=== PATIENT | female | born 1980 | race Caucasian/White ===

== ENCOUNTER → 2017-11-20 | Outpatient (CLI) | payer OTHER ==
[2017-11-20 15:58] LABS: BASOPHILS ABSOLUTE AUTO 0.13 K/mm3 (0.00-0.23); BASOPHILS PERCENT AUTO 2 % (0-2); EOSINOPHILS ABSOLUTE AUTO 0.48 K/mm3 (0.00-0.68); EOSINOPHILS PERCENT AUTO 9 % (0-6); Hematocrit 37.2 % (33.0-51.0); IMMATURE GRAN ABSOLUTE AUTO 0.01 K/mm3 (0.00-0.10); IMMATURE GRAN PERCENT AUTO 0 % (0-1); LYMPHOCYTES ABSOLUTE AUTO 1.69 K/mm3 (0.84-5.20); LYMPHOCYTES PERCENT AUTO 31 % (21-46); MONOCYTES ABSOLUTE AUTO 0.34 K/mm3 (0.16-1.47); MONOCYTES PERCENT AUTO 6 % (4-13); Mean Corpuscular HGB 29.4 pg (26.0-34.0); Mean Corpuscular HGB Conc 32.3 g/dL (31.5-36.5); Mean Corpuscular Volume 91 fL (80-100); NEUTROPHILS ABSOLUTE AUTO 2.82 K/mm3 (1.96-9.15); NEUTROPHILS PERCENT AUTO 52 % (41-73); Platelet Count 412 K/mm3 (150-400); RDW Coefficient Variation 15.6 % (11.7-14.2); Red Blood Cell Count 4.08 M/mm3 (3.80-5.20); White Blood Cell Count 5.47 K/mm3 (4.00-11.30)
[2017-11-20 16:05] LABS: Anion Gap 8 mmol/L (6-16); Blood Urea Nitrogen 6 mg/dL (8-24); Bun/Creatinine Ratio 8.5 (12.0-20.0); CO2, Blood 26 mmol/L (21-32); Calcium, Blood 8.4 mg/dL (8.5-10.1); Chloride, Blood 106 mmol/L (98-108); Creatinine, Blood 0.71 mg/dL (0.40-1.00); Glomerular Filtration Rate >60 (60-); Glucose, Blood 90 mg/dL (70-99); Potassium, Blood 4.2 mmol/L (3.5-5.5); Sodium, Blood 140 mmol/L (136-145)
== END ==
LOC: LAB SHORT 15:54 → LAB EV 15:54
PROVIDERS: Family Medicine
DX: R55 Syncope and collapse (principal)
CPT/HCPCS: 80048; 85025

== ENCOUNTER 2018-02-10 13:37 | Emergency (ER) | payer OTHER ==
[~2018-02-10] VITALS: Ht 167.6 cm; Wt 81.7 kg
[2018-02-10 14:28] LABS: Source, Urine Clean Catch
[2018-02-10 14:33] LABS: Appearance, Urine Clear (Clear); Bilirubin, Urine Neg (Neg); Blood, Urine 4+ (Neg); Color, Urine Yellow (P-Yellow); Glucose Qualitative, Urine Neg (Neg); Ketones, Urine Neg (Neg); Leukocyte Esterase, Urine Neg (Neg); Nitrite, Urine Neg (Neg); Protein, Urine 1+ (Neg); Specific Gravity, Urine 1.005 (1.003-1.022); Urobilinogen, Urine NORM (Normal)
[2018-02-10 14:58] LABS: Bacteria Rare /hpf; Red Blood Cells, Urine Not Seen /hpf (0-2); Squamous Epithelial Cells Few /hpf (Few); White Blood Cells, Urine Not Seen /hpf (0-5)
[2018-02-10 15:03] LABS: BASOPHILS ABSOLUTE AUTO 0.07 K/mm3 (0.00-0.23); BASOPHILS PERCENT AUTO 1 % (0-2); EOSINOPHILS PERCENT AUTO 3 % (0-6); Hematocrit 40.9 % (33.0-51.0); Hemoglobin 13.4 g/dL (11.5-16.0); IMMATURE GRAN ABSOLUTE AUTO 0.01 K/mm3 (0.00-0.10); IMMATURE GRAN PERCENT AUTO 0 % (0-1); LYMPHOCYTES ABSOLUTE AUTO 1.69 K/mm3 (0.84-5.20); LYMPHOCYTES PERCENT AUTO 28 % (21-46); MONOCYTES ABSOLUTE AUTO 0.31 K/mm3 (0.16-1.47); MONOCYTES PERCENT AUTO 5 % (4-13); Mean Corpuscular HGB Conc 32.8 g/dL (31.5-36.5); Mean Corpuscular Volume 95 fL (80-100); Mean Platelet Volume 8.8 fL (9.1-12.4); NEUTROPHILS ABSOLUTE AUTO 3.82 K/mm3 (1.96-9.15); NEUTROPHILS PERCENT AUTO 63 % (41-73); Platelet Count 404 K/mm3 (150-400); RDW Coefficient Variation 15.1 % (11.7-14.2); RDW Standard Deviation 53.5 fL (35.1-46.3); Red Blood Cell Count 4.32 M/mm3 (3.80-5.20)
== END 2018-02-10 15:37 | disposition home or self-care (01) ==
LOC: ER 13:37
PROVIDERS: Physician Assistant
DX: N92.0 Excessive and frequent menstruation with regular cycle (principal); F17.200 Nicotine dependence, unspecified, uncomplicated
CPT/HCPCS: 36415; 81001; 81025; 85025; 99283

== ENCOUNTER 2018-02-12 16:57 | Emergency (ER) | payer OTHER ==
[~2018-02-12] VITALS: Ht 167.6 cm; Wt 79.4 kg
[2018-02-12 17:48] LABS: BASOPHILS ABSOLUTE AUTO 0.09 K/mm3 (0.00-0.23); BASOPHILS PERCENT AUTO 2 % (0-2); EOSINOPHILS ABSOLUTE AUTO 0.11 K/mm3 (0.00-0.68); EOSINOPHILS PERCENT AUTO 2 % (0-6); Hematocrit 40.8 % (33.0-51.0); Hemoglobin 13.3 g/dL (11.5-16.0); IMMATURE GRAN ABSOLUTE AUTO 0.01 K/mm3 (0.00-0.10); IMMATURE GRAN PERCENT AUTO 0 % (0-1); LYMPHOCYTES ABSOLUTE AUTO 1.14 K/mm3 (0.84-5.20); LYMPHOCYTES PERCENT AUTO 21 % (21-46); MONOCYTES ABSOLUTE AUTO 0.42 K/mm3 (0.16-1.47); MONOCYTES PERCENT AUTO 8 % (4-13); Mean Corpuscular HGB 30.8 pg (26.0-34.0); Mean Corpuscular HGB Conc 32.6 g/dL (31.5-36.5); Mean Corpuscular Volume 94 fL (80-100); Mean Platelet Volume 8.8 fL (9.1-12.4); NEUTROPHILS ABSOLUTE AUTO 3.63 K/mm3 (1.96-9.15); NEUTROPHILS PERCENT AUTO 67 % (41-73); Platelet Count 371 K/mm3 (150-400); RDW Coefficient Variation 15.2 % (11.7-14.2); RDW Standard Deviation 53.4 fL (35.1-46.3); Red Blood Cell Count 4.32 M/mm3 (3.80-5.20)
[2018-02-12 17:54] LABS: Alanine Aminotransfer (ALT/SGP 41 U/L (12-78); Alk Phos 60 U/L (50-136); Anion Gap 10 mmol/L (6-16); Aspartate Aminotrans (AST/SGOT 50 U/L (12-37); Beta HCG, Quantitative, Serum <1 mIU/mL (0-3); Bilirubin, Total 0.6 mg/dL (0.1-1.0); Blood Urea Nitrogen 5 mg/dL (8-24); Bun/Creatinine Ratio 8.5 (12.0-20.0); CO2, Blood 23 mmol/L (21-32); Calcium, Blood 8.8 mg/dL (8.5-10.1); Chloride, Blood 102 mmol/L (98-108); Creatinine, Blood 0.59 mg/dL (0.40-1.00); Globulin, Blood 4.2 g/dL (2.2-4.0); Glomerular Filtration Rate >60 (60-); Glucose, Blood 86 mg/dL (70-99); Potassium, Blood 3.5 mmol/L (3.5-5.5); Sodium, Blood 135 mmol/L (136-145); Total Protein, Blood 8.2 g/dL (6.4-8.2)
[2018-02-12] MEDS ORDERED: MEDR10 PO (19:06)
[2018-02-12] MEDS ORDERED: HYDR1TAB94 PO (19:06)
[2018-02-12] MEDS ORDERED: IBUP400 PO (19:06)
== END 2018-02-12 19:20 | disposition home or self-care (01) ==
LOC: ER 16:57
PROVIDERS: Emergency Medicine
DX: N93.8 Other specified abnormal uterine and vaginal bleeding (principal); F17.200 Nicotine dependence, unspecified, uncomplicated
CPT/HCPCS: 36415; 76830; 76856; 80053; 84702; 85025; 96374; 96375; 99284-25; J2405; J3010

== ENCOUNTER 2018-06-21 17:12 | Observation (INO) | payer OTHER ==
[~2018-06-21] VITALS: Ht 167.6 cm; Wt 81.7 kg
[~2018-06-21 17:12] MED LIST: HYDR1TAB94 PO; IBUP400 PO; MEDR10 PO
[2018-06-21 18:24] LABS: BASOPHILS ABSOLUTE AUTO 0.12 K/mm3 (0.00-0.23); BASOPHILS PERCENT AUTO 1 % (0-2); EOSINOPHILS ABSOLUTE AUTO 0.09 K/mm3 (0.00-0.68); EOSINOPHILS PERCENT AUTO 1 % (0-6); Hematocrit 41.3 % (33.0-51.0); Hemoglobin 13.6 g/dL (11.5-16.0); IMMATURE GRAN ABSOLUTE AUTO 0.03 K/mm3 (0.00-0.10); IMMATURE GRAN PERCENT AUTO 0 % (0-1); LYMPHOCYTES ABSOLUTE AUTO 2.34 K/mm3 (0.84-5.20); LYMPHOCYTES PERCENT AUTO 27 % (21-46); MONOCYTES ABSOLUTE AUTO 0.49 K/mm3 (0.16-1.47); MONOCYTES PERCENT AUTO 6 % (4-13); Mean Corpuscular HGB 31.5 pg (26.0-34.0); Mean Corpuscular HGB Conc 32.9 g/dL (31.5-36.5); Mean Corpuscular Volume 96 fL (80-100); Mean Platelet Volume 9.4 fL (9.1-12.4); NEUTROPHILS ABSOLUTE AUTO 5.48 K/mm3 (1.96-9.15); NEUTROPHILS PERCENT AUTO 64 % (41-73); Platelet Count 375 K/mm3 (150-400); RDW Coefficient Variation 17.6 % (11.7-14.2); Red Blood Cell Count 4.32 M/mm3 (3.80-5.20); White Blood Cell Count 8.55 K/mm3 (4.00-11.30)
[2018-06-21 18:39] LABS: Alanine Aminotransfer (ALT/SGP 21 U/L (12-78); Albumin, Blood 3.6 g/dL (3.4-5.0); Albumin/Globulin Ratio 0.8 (0.8-1.8); Alk Phos 68 U/L (50-136); Anion Gap 9 mmol/L (6-16); Aspartate Aminotrans (AST/SGOT 26 U/L (12-37); Bilirubin, Total 0.2 mg/dL (0.1-1.0); Blood Urea Nitrogen 5 mg/dL (8-24); Bun/Creatinine Ratio 8.1 (12.0-20.0); CO2, Blood 24 mmol/L (21-32); Calcium, Blood 8.2 mg/dL (8.5-10.1); Chloride, Blood 108 mmol/L (98-108); Creatinine, Blood 0.61 mg/dL (0.40-1.00); Globulin, Blood 4.6 g/dL (2.2-4.0); Glomerular Filtration Rate >60 (60-); Glucose, Blood 95 mg/dL (70-99); Potassium, Blood 4.4 mmol/L (3.5-5.5); Salicylate 2.1 mg/dL (2.8-20.0); Sodium, Blood 141 mmol/L (136-145); Total Protein, Blood 8.2 g/dL (6.4-8.2)
[2018-06-21 18:45] LABS: Acetaminophen, Random <2.0 ug/mL (10.0-30.0); Ethanol (Alcohol), Blood, Med 368 mg/dL
[2018-06-21 21:54] LABS: Salicylate 2.1 mg/dL (2.8-20.0)
[2018-06-21 21:59] LABS: Acetaminophen, Random <2.0 ug/mL (10.0-30.0)
[2018-06-22 00:49] LABS: Acetaminophen, Random <2.0 ug/mL (10.0-30.0)
== END 2018-06-22 06:50 | disposition home or self-care (01) ==
LOC: ER 17:12 → EOR 17:13
PROVIDERS: ADMIT Emergency Medicine
DX: T42.4X2A Poisoning by benzodiazepines, intentional self-harm, initial encounter (principal); F10.129 Alcohol abuse with intoxication, unspecified; F43.9 Reaction to severe stress, unspecified; F32.9 Major depressive disorder, single episode, unspecified; F17.210 Nicotine dependence, cigarettes, uncomplicated; Z79.899 Other long term (current) drug therapy; Y90.8 Blood alcohol level of 240 mg/100 ml or more
CPT/HCPCS: 80053; 84443; 85025; 96360; 96361; 99285-25; G0378; G0480; J7030; Q3014

== ENCOUNTER 2019-03-06 19:16 | Emergency (ER) | payer MEDICAID ==
[~2019-03-06] VITALS: Ht 167.6 cm; Wt 81.7 kg
[2019-03-06 20:10] LABS: BASOPHILS ABSOLUTE AUTO 0.09 K/mm3 (0.00-0.23); BASOPHILS PERCENT AUTO 1 % (0-2); EOSINOPHILS ABSOLUTE AUTO 0.01 K/mm3 (0.00-0.68); EOSINOPHILS PERCENT AUTO 0 % (0-6); Hematocrit 36.2 % (33.0-51.0); Hemoglobin 11.8 g/dL (11.5-16.0); IMMATURE GRAN ABSOLUTE AUTO 0.03 K/mm3 (0.00-0.10); IMMATURE GRAN PERCENT AUTO 0 % (0-1); LYMPHOCYTES ABSOLUTE AUTO 0.68 K/mm3 (0.84-5.20); LYMPHOCYTES PERCENT AUTO 8 % (21-46); MONOCYTES ABSOLUTE AUTO 0.43 K/mm3 (0.16-1.47); MONOCYTES PERCENT AUTO 5 % (4-13); Mean Corpuscular HGB 31.4 pg (26.0-34.0); Mean Corpuscular HGB Conc 32.6 g/dL (31.5-36.5); Mean Corpuscular Volume 96 fL (80-100); Mean Platelet Volume 9.6 fL (9.1-12.4); NEUTROPHILS ABSOLUTE AUTO 6.88 K/mm3 (1.96-9.15); NEUTROPHILS PERCENT AUTO 85 % (41-73); Platelet Count 289 K/mm3 (150-400); RDW Coefficient Variation 15.3 % (11.7-14.2); RDW Standard Deviation 54.2 fL (35.1-46.3); Red Blood Cell Count 3.76 M/mm3 (3.80-5.20); White Blood Cell Count 8.12 K/mm3 (4.00-11.30)
[2019-03-06 20:31] LABS: Alanine Aminotransfer (ALT/SGP 53 U/L (12-78); Albumin, Blood 3.9 g/dL (3.4-5.0); Albumin/Globulin Ratio 1.1 (0.8-1.8); Alk Phos 62 U/L (50-136); Anion Gap 14 mmol/L (6-16); Aspartate Aminotrans (AST/SGOT 56 U/L (12-37); Bilirubin, Total 0.7 mg/dL (0.1-1.0); Blood Urea Nitrogen 5 mg/dL (8-24); Bun/Creatinine Ratio 8.3 (12.0-20.0); CO2, Blood 19 mmol/L (21-32); Calcium, Blood 8.4 mg/dL (8.5-10.1); Chloride, Blood 103 mmol/L (98-108); Globulin, Blood 3.7 g/dL (2.2-4.0); Glomerular Filtration Rate >60 (60-); Glucose, Blood 80 mg/dL (70-99); Potassium, Blood 3.1 mmol/L (3.5-5.5); Sodium, Blood 136 mmol/L (136-145); Total Protein, Blood 7.6 g/dL (6.4-8.2); Troponin I <0.015 ng/mL (0.000-0.040)
[2019-03-06] MEDS ORDERED: Ativan0.5 MG PO (20:37)
== END 2019-03-06 20:58 | disposition home or self-care (01) ==
LOC: ER 19:16
PROVIDERS: Physician Assistant
DX: F41.9 Anxiety disorder, unspecified (principal); E87.6 Hypokalemia; F17.210 Nicotine dependence, cigarettes, uncomplicated; Z88.8 Allergy status to other drugs, medicaments and biological substances
CPT/HCPCS: 80053; 81025; 84484; 85025; 93005; 93010; 99284-25

== ENCOUNTER → 2019-04-16 | Outpatient (CLI) | payer SELFPAY ==
[~2019-04-16] MED LIST changes: +Ativan0.5 MG PO
== END | disposition home or self-care (01) ==
LOC: LAB EV 17:10 → LAB SHORT 17:10
DX: L02.11 Cutaneous abscess of neck (principal)
CPT/HCPCS: 87070; 87075; 87076; 87205

== ENCOUNTER → 2019-07-24 | Outpatient (CLI) | payer OTHER ==
[2019-07-24 16:05] LABS: BASOPHILS ABSOLUTE AUTO 0.11 K/mm3 (0.00-0.23); BASOPHILS PERCENT AUTO 2 % (0-2); EOSINOPHILS ABSOLUTE AUTO 0.05 K/mm3 (0.00-0.68); EOSINOPHILS PERCENT AUTO 1 % (0-6); Hematocrit 37.1 % (33.0-51.0); Hemoglobin 12.8 g/dL (11.5-16.0); IMMATURE GRAN ABSOLUTE AUTO 0.01 K/mm3 (0.00-0.10); IMMATURE GRAN PERCENT AUTO 0 % (0-1); LYMPHOCYTES PERCENT AUTO 24 % (21-46); MONOCYTES ABSOLUTE AUTO 0.47 K/mm3 (0.16-1.47); MONOCYTES PERCENT AUTO 8 % (4-13); Mean Corpuscular HGB 32.1 pg (26.0-34.0); Mean Corpuscular HGB Conc 34.5 g/dL (31.5-36.5); Mean Corpuscular Volume 93 fL (80-100); Mean Platelet Volume 9.7 fL (9.1-12.4); NEUTROPHILS ABSOLUTE AUTO 4.01 K/mm3 (1.96-9.15); NEUTROPHILS PERCENT AUTO 65 % (41-73); Platelet Count 488 K/mm3 (150-400); RDW Coefficient Variation 16.2 % (11.7-14.2); RDW Standard Deviation 55.5 fL (35.1-46.3); Red Blood Cell Count 3.99 M/mm3 (3.80-5.20); White Blood Cell Count 6.15 K/mm3 (4.00-11.30)
[2019-07-24 16:51] LABS: Alanine Aminotransfer (ALT/SGP 112 U/L (12-78); Albumin, Blood 3.5 g/dL (3.4-5.0); Albumin/Globulin Ratio 0.8 (0.8-1.8); Alk Phos 69 U/L (40-126); Anion Gap 11 mmol/L (6-16); Aspartate Aminotrans (AST/SGOT 139 U/L (12-37); Bilirubin, Total 0.6 mg/dL (0.1-1.0); Blood Urea Nitrogen 2 mg/dL (8-24); CO2, Blood 24 mmol/L (21-32); Calcium, Blood 8.5 mg/dL (8.5-10.1); Chloride, Blood 103 mmol/L (98-108); Globulin, Blood 4.4 g/dL (2.2-4.0); Glomerular Filtration Rate >60 (60-); Glucose, Blood 80 mg/dL (70-99); Potassium, Blood 4.6 mmol/L (3.5-5.5); Sodium, Blood 138 mmol/L (136-145); Thyroid Stimulating Hormone 1.521 uIU/mL (0.360-4.800); Total Protein, Blood 7.9 g/dL (6.4-8.2)
[2019-07-24 16:52] LABS: Troponin I <0.017 ng/mL (0.000-0.040)
[2019-07-26 03:07] LABS: HBSAG SCREEN Negative (Negative); HEP A AB, IGM Negative (Negative); HEP B CORE AB, IGM Negative (Negative); HEP C VIRUS AB <0.1 (0.0-0.9)
== END | disposition home or self-care (01) ==
LOC: LAB SHORT 15:58 → LAB EV 15:58
PROVIDERS: Physician Assistant
DX: R07.89 Other chest pain (principal); R53.83 Other fatigue; R74.8 Abnormal levels of other serum enzymes
CPT/HCPCS: 80053; 80074; 84443; 84484; 85025

== ENCOUNTER 2019-11-09 13:26 | Emergency (ER) | payer OTHER ==
[~2019-11-09] VITALS: Ht 170.2 cm; Wt 78.5 kg
[2019-11-09 13:45] LABS: BASOPHILS ABSOLUTE AUTO 0.03 K/mm3 (0.00-0.23); BASOPHILS PERCENT AUTO 0 % (0-2); EOSINOPHILS ABSOLUTE AUTO 0.03 K/mm3 (0.00-0.68); EOSINOPHILS PERCENT AUTO 0 % (0-6); Hematocrit 42.8 % (33.0-51.0); Hemoglobin 14.3 g/dL (11.5-16.0); IMMATURE GRAN PERCENT AUTO 1 % (0-1); LYMPHOCYTES ABSOLUTE AUTO 0.35 K/mm3 (0.84-5.20); LYMPHOCYTES PERCENT AUTO 2 % (21-46); MONOCYTES ABSOLUTE AUTO 1.29 K/mm3 (0.16-1.47); MONOCYTES PERCENT AUTO 9 % (4-13); Mean Corpuscular HGB 32.5 pg (26.0-34.0); Mean Corpuscular HGB Conc 33.4 g/dL (31.5-36.5); Mean Corpuscular Volume 97 fL (80-100); Mean Platelet Volume 10.9 fL (9.1-12.4); NEUTROPHILS ABSOLUTE AUTO 12.96 K/mm3 (1.96-9.15); NEUTROPHILS PERCENT AUTO 88 % (41-73); NRBC ABSOLUTE 0.02 K/mm3 (0.00-0.02); NRBC Auto 0.1 /100 WBC (0.0-0.2); Platelet Count 167 K/mm3 (150-400); RDW Coefficient Variation 18.6 % (11.7-14.2); RDW Standard Deviation 66.9 fL (35.1-46.3); White Blood Cell Count 14.76 K/mm3 (4.00-11.30)
[2019-11-09 14:03] LABS: Alanine Aminotransfer (ALT/SGP 64 U/L (12-78); Albumin, Blood 3.5 g/dL (3.4-5.0); Albumin/Globulin Ratio 0.8 (0.8-1.8); Alk Phos 70 U/L (50-136); Anion Gap 27 mmol/L (6-16); Aspartate Aminotrans (AST/SGOT 115 U/L (12-37); Bilirubin, Total 1.3 mg/dL (0.1-1.0); Blood Urea Nitrogen 12 mg/dL (8-24); Bun/Creatinine Ratio 13.2 (12.0-20.0); CO2, Blood 11 mmol/L (21-32); Calcium, Blood 8.7 mg/dL (8.5-10.1); Chloride, Blood 87 mmol/L (98-108); Creatinine, Blood 0.91 mg/dL (0.40-1.00); Globulin, Blood 4.4 g/dL (2.2-4.0); Glomerular Filtration Rate >60 (60-); Glucose, Blood 131 mg/dL (70-99); Potassium, Blood 3.6 mmol/L (3.5-5.5); Sodium, Blood 125 mmol/L (136-145); Total Protein, Blood 7.9 g/dL (6.4-8.2)
[2019-11-09] MEDS ORDERED: PROM25 PO (15:39)
== END 2019-11-09 16:20 | disposition home or self-care (01) ==
LOC: ER 13:26
PROVIDERS: Emergency Medicine
DX: K85.90 Acute pancreatitis without necrosis or infection, unspecified (principal); E86.0 Dehydration; F10.10 Alcohol abuse, uncomplicated; F41.0 Panic disorder [episodic paroxysmal anxiety]; F17.200 Nicotine dependence, unspecified, uncomplicated
CPT/HCPCS: 76705; 80053; 83690; 85025; 93005; 93010; 96361; 96374; 96375; 99284-25; J2270; J2550; J7030

== ENCOUNTER 2019-11-12 15:03 | Inpatient (IN) | payer OTHER ==
[~2019-11-12] VITALS: Ht 170.2 cm; Wt 75.4 kg
[~2019-11-12 15:03] MED LIST changes: +PROM25 PO
[2019-11-12 16:12] LABS: BASOPHILS ABSOLUTE AUTO 0.03 K/mm3 (0.00-0.23); BASOPHILS PERCENT AUTO 0 % (0-2); EOSINOPHILS ABSOLUTE AUTO 0.07 K/mm3 (0.00-0.68); EOSINOPHILS PERCENT AUTO 1 % (0-6); Hematocrit 32.8 % (33.0-51.0); Hemoglobin 11.1 g/dL (11.5-16.0); IMMATURE GRAN ABSOLUTE AUTO 0.08 K/mm3 (0.00-0.10); IMMATURE GRAN PERCENT AUTO 1 % (0-1); LYMPHOCYTES ABSOLUTE AUTO 0.76 K/mm3 (0.84-5.20); LYMPHOCYTES PERCENT AUTO 11 % (21-46); MONOCYTES ABSOLUTE AUTO 0.41 K/mm3 (0.16-1.47); MONOCYTES PERCENT AUTO 6 % (4-13); Mean Corpuscular HGB 32.2 pg (26.0-34.0); Mean Corpuscular HGB Conc 33.8 g/dL (31.5-36.5); Mean Corpuscular Volume 95 fL (80-100); Mean Platelet Volume 10.6 fL (9.1-12.4); NEUTROPHILS PERCENT AUTO 81 % (41-73); NRBC ABSOLUTE 0.02 K/mm3 (0.00-0.02); NRBC Auto 0.3 /100 WBC (0.0-0.2); Platelet Count 159 K/mm3 (150-400); RDW Coefficient Variation 18.6 % (11.7-14.2); RDW Standard Deviation 65.1 fL (35.1-46.3); Red Blood Cell Count 3.45 M/mm3 (3.80-5.20); White Blood Cell Count 7.05 K/mm3 (4.00-11.30)
[2019-11-12 16:31] LABS: Alanine Aminotransfer (ALT/SGP 48 U/L (12-78); Albumin, Blood 3.2 g/dL (3.4-5.0); Albumin/Globulin Ratio 0.8 (0.8-1.8); Alk Phos 72 U/L (50-136); Anion Gap 14 mmol/L (6-16); Aspartate Aminotrans (AST/SGOT 71 U/L (12-37); Bilirubin, Total 1.1 mg/dL (0.1-1.0); Blood Urea Nitrogen 15 mg/dL (8-24); Bun/Creatinine Ratio 20.3 (12.0-20.0); CO2, Blood 21 mmol/L (21-32); Calcium, Blood 9.2 mg/dL (8.5-10.1); Chloride, Blood 93 mmol/L (98-108); Creatinine, Blood 0.74 mg/dL (0.40-1.00); Globulin, Blood 4.1 g/dL (2.2-4.0); Glomerular Filtration Rate >60 (60-); Glucose, Blood 163 mg/dL (70-99); Potassium, Blood 2.9 mmol/L (3.5-5.5); Sodium, Blood 128 mmol/L (136-145); Total Protein, Blood 7.3 g/dL (6.4-8.2)
[2019-11-12 18:25] LABS: Source, Urine Clean Catch
[2019-11-12 18:31] LABS: Bilirubin, Urine Neg (Neg); Blood, Urine 5+ (Neg); Glucose Qualitative, Urine 1+ (Neg); Ketones, Urine 4+ (Neg); Leukocyte Esterase, Urine 1+ (Neg); Nitrite, Urine Neg (Neg); Protein, Urine 2+ (Neg); Specific Gravity, Urine 1.005 (1.003-1.022); Urobilinogen, Urine 1+ (Normal); pH, Urine 6.5 (5.0-8.0)
[2019-11-12 18:46] LABS: Appearance, Urine Clear (Clear); Color, Urine Yellow (P-Yellow)
[2019-11-12 18:47] LABS: Bacteria Mod /hpf; Squamous Epithelial Cells Few /hpf (Few)
[2019-11-12 21:26] LABS: Magnesium, Blood 2.3 mg/dL (1.6-2.4)
[2019-11-13 05:55] LABS: Magnesium, Blood 2.4 mg/dL (1.6-2.4)
[2019-11-13 05:57] LABS: Alanine Aminotransfer (ALT/SGP 37 U/L (12-78); Albumin, Blood 2.6 g/dL (3.4-5.0); Albumin/Globulin Ratio 0.7 (0.8-1.8); Alk Phos 58 U/L (50-136); Anion Gap 8 mmol/L (6-16); Aspartate Aminotrans (AST/SGOT 45 U/L (12-37); Bilirubin, Total 0.7 mg/dL (0.1-1.0); Blood Urea Nitrogen 15 mg/dL (8-24); Bun/Creatinine Ratio 25.2 (12.0-20.0); CO2, Blood 23 mmol/L (21-32); Calcium, Blood 8.3 mg/dL (8.5-10.1); Chloride, Blood 102 mmol/L (98-108); Globulin, Blood 3.7 g/dL (2.2-4.0); Glomerular Filtration Rate >60 (60-); Glucose, Blood 132 mg/dL (70-99); Potassium, Blood 3.3 mmol/L (3.5-5.5); Sodium, Blood 133 mmol/L (136-145); Total Protein, Blood 6.3 g/dL (6.4-8.2)
--- NOTE | 2019-11-13 06:31 | NUR ---
SHIFT SUMMARY PT WAS A NEW ADMIT DURING THE NIGHT, ARRIVING AT 2250. SHE WAS ADMITTED FOR PANCREATITIS AND ABD PAIN. PT IS A&O X 4, 1PA IN THE ROOM. SHE WAS MEDICATED X2 FOR ABD PAIN WITH IV DILAUDID, AND ONCE FOR NAUSEA WITH PRN ZOFRAN. PT SLEPT OFF AND ON THROUGH THE NIGHT. SHE WAS ALSO MEDICATED FOR ANXIETY WITH PRN XANAX. VITAL SIGNS STABLE. PT IS RECEIVING NS @ 100 ML/HR. NO ACUTE CHANGES IN PT CONDITION NOTED SINCE ADMISSION. WILL CONTINUE TO MONITOR AND TREAT PER EMAR UNTIL HAND OFF TO DAY SHIFT RN.
--- NOTE | 2019-11-13 17:30 | NUR ---
Shift Summary A/Ox4, pleasant and cooperative with care. SBA to bedside commode, able to make needs known. Medicated for abdominal pain x 2 with good results. Denies nausea, vomiting, diarrhea. Tolerating PO clear liquids well and anxious to go home soon. Uneventful day. No acute concerns, will continue to monitor.
[2019-11-14 06:02] LABS: BASOPHILS ABSOLUTE AUTO 0.04 K/mm3 (0.00-0.23); BASOPHILS PERCENT AUTO 1 % (0-2); EOSINOPHILS ABSOLUTE AUTO 0.17 K/mm3 (0.00-0.68); EOSINOPHILS PERCENT AUTO 3 % (0-6); Hematocrit 28.8 % (33.0-51.0); Hemoglobin 9.6 g/dL (11.5-16.0); IMMATURE GRAN PERCENT AUTO 2 % (0-1); LYMPHOCYTES ABSOLUTE AUTO 0.83 K/mm3 (0.84-5.20); LYMPHOCYTES PERCENT AUTO 15 % (21-46); MONOCYTES ABSOLUTE AUTO 0.92 K/mm3 (0.16-1.47); MONOCYTES PERCENT AUTO 16 % (4-13); Mean Corpuscular HGB 32.4 pg (26.0-34.0); Mean Corpuscular HGB Conc 33.3 g/dL (31.5-36.5); Mean Corpuscular Volume 97 fL (80-100); Mean Platelet Volume 10.4 fL (9.1-12.4); NEUTROPHILS ABSOLUTE AUTO 3.54 K/mm3 (1.96-9.15); NEUTROPHILS PERCENT AUTO 63 % (41-73); Platelet Count 150 K/mm3 (150-400); RDW Standard Deviation 67.7 fL (35.1-46.3); Red Blood Cell Count 2.96 M/mm3 (3.80-5.20)
--- NOTE | 2019-11-14 06:24 | NUR ---
SHIFT SUMMARY PT IS A 39 Y/O FEMALE, ADMITTED FOR PANCREATITIS. SHE IS A&O X 4, INDEPENDENT TO [place] [facility] [place] PT COMPLAINED OF AN ACUTE EXACERBATION OF EPIGASTRIC PAIN DURING THE NIGHT, WHICH WAS CONTROLLED WITH PRN IV DILAUDID. PT DID REPORT NAUSEA IMPROVED, THOUGH IT IS PAINFUL FOR HER TO SWALLOW. NO COMPLAINTS OF SOB. VITAL SIGNS STABLE. PT RECEIVING NS @ 100 ML/HR CONTINUOUS. NO OTHER ACUTE CHANGES IN PT CONDITION NOTED. WILL CONTINUE TO MONITOR AND TREAT PER EMAR UNTIL HAND OFF TO DAY SHIFT RN.
[2019-11-14 06:41] LABS: Albumin, Blood 2.3 g/dL (3.4-5.0); Anion Gap 11 mmol/L (6-16); Blood Urea Nitrogen 8 mg/dL (8-24); Bun/Creatinine Ratio 16.1 (12.0-20.0); CO2, Blood 22 mmol/L (21-32); Calcium, Blood 7.6 mg/dL (8.5-10.1); Chloride, Blood 103 mmol/L (98-108); Glomerular Filtration Rate >60 (60-); Glucose, Blood 173 mg/dL (70-99); Phosphorus, Blood 3.3 mg/dL (2.5-4.9); Potassium, Blood 2.9 mmol/L (3.5-5.5); Sodium, Blood 136 mmol/L (136-145)
[2019-11-14 09:37] LABS: Percent Saturation 16.6 % (15.0-50.0)
--- NOTE | 2019-11-14 19:35 | NUR ---
Shift Summary A/Ox4. Medicated for pain per EMAR x 1 with good results. Denies nausea, vomiting, diarrhea. C/O burning pain in chest when eating meals, passed onto night RN RE possibly ordering carafate. NS @ 100. Independent to bedside commode, SBA to bathroom. No other acute concerns.
--- NOTE | 2019-11-15 04:51 | NUR ---
SOCIAL MEDIA DEVELOPER SUMMARY PT A/O X4. INDEPENDENT TO [facility]. MEDICATED FOR PAIN PER EMAR. VSS. NAUSEA WAS TOLERABLE. SLEPT OFF AND ON TONIGHT. NO ACUTE CHANGES.
[2019-11-15 09:00] LABS: Anion Gap 7 mmol/L (6-16); Blood Urea Nitrogen 5 mg/dL (8-24); Bun/Creatinine Ratio 10.8 (12.0-20.0); CO2, Blood 25 mmol/L (21-32); Calcium, Blood 8.2 mg/dL (8.5-10.1); Chloride, Blood 104 mmol/L (98-108); Creatinine, Blood 0.46 mg/dL (0.40-1.00); Glomerular Filtration Rate >60 (60-); Glucose, Blood 137 mg/dL (70-99); Potassium, Blood 3.3 mmol/L (3.5-5.5); Sodium, Blood 136 mmol/L (136-145)
--- NOTE | 2019-11-15 18:10 | NUR ---
PT AOX4 AND COOPERATIVE OF CARE. PT STARTED SHIFT WITH STOMACH PAIN AND SOME NAUSEA AND WAS TREATED PER EMAR. DR CORTES DID A CONSULT FOR DR GARCIA. PT WILL BE ON CLEAR THEN NPO AT MIDNIGHT FOR AN EGD IN THE AM TOMORROW. PT IS WORKING ON HER DINNER AT THIS TIME. INDEPENDENT TO BEDSIDE COMMODE. WILL CONTINUE TO MONITOR.
--- NOTE | 2019-11-16 05:02 | NUR ---
BOAT DETAILER SUMMARY PT A/O X4. INDEPENDENT TO BEDSIDE COMMODE. MEDICATED FOR PAIN PER EMAR. PT STATED SHE DID NOT SLEEP MUCH TONIGHT. PT STATED BEING IN THE HOSPITAL MAKES HER ANXIOUS. NPO SINCE MIDNIGHT. AWAITING EGD TODAY. PT EXPRESSED SHE REALLY WANTS TO GO HOME AFTER PROCEDURE EVEN IF IT MEANT LEAVING AMA. XANAX GIVEN FOR ANXIETY. VSS. NO ACUTE CHANGES.
[2019-11-16 05:48] LABS: Hematocrit 28.3 % (33.0-51.0); Hemoglobin 9.3 g/dL (11.5-16.0); Mean Corpuscular HGB Conc 32.9 g/dL (31.5-36.5); Mean Corpuscular Volume 97 fL (80-100); Platelet Count 245 K/mm3 (150-400); RDW Coefficient Variation 19.6 % (11.7-14.2); RDW Standard Deviation 69.7 fL (35.1-46.3); Red Blood Cell Count 2.91 M/mm3 (3.80-5.20); White Blood Cell Count 4.37 K/mm3 (4.00-11.30)
[2019-11-16 06:07] LABS: Alanine Aminotransfer (ALT/SGP 24 U/L (12-78); Albumin, Blood 2.2 g/dL (3.4-5.0); Albumin/Globulin Ratio 0.7 (0.8-1.8); Alk Phos 49 U/L (50-136); Anion Gap 8 mmol/L (6-16); Aspartate Aminotrans (AST/SGOT 24 U/L (12-37); Bilirubin, Total 0.3 mg/dL (0.1-1.0); Blood Urea Nitrogen 4 mg/dL (8-24); Bun/Creatinine Ratio 9.4 (12.0-20.0); CO2, Blood 24 mmol/L (21-32); Calcium, Blood 7.5 mg/dL (8.5-10.1); Chloride, Blood 106 mmol/L (98-108); Creatinine, Blood 0.43 mg/dL (0.40-1.00); Globulin, Blood 3.1 g/dL (2.2-4.0); Glomerular Filtration Rate >60 (60-); Glucose, Blood 120 mg/dL (70-99); Sodium, Blood 138 mmol/L (136-145); Total Protein, Blood 5.3 g/dL (6.4-8.2)
--- NOTE | 2019-11-16 08:56 | NUR ---
History, Chart, Medications and Allergies reviewed before start of procedure. Lungs clear T/O to Auscultation. Patient confirms NPO status and agrees with scheduled surgery. Pre-Op teaching done. Pt verbalizes understanding.
--- NOTE | 2019-11-16 09:14 | NUR ---
11/16/19 0914 Alicia Lima History, Chart, Medications and Allergies reviewed before start of procedure.3-LEAD EKG REVIEWED WITH PHYSICIAN PRIOR TO START OF PROCEDURE. MONITOR INTACT WITH CONTINUOUS PULSE OXIMETRY AND INTERMITTENT BP. O2 VIA N/C INTACT THROUGHOUT SEDATION/PROCEDURE. PATIENT DETERMINED TO BE ASA APPROPRIATE FOR PROPOFOL SEDATION PRIOR TO START OF PROCEDURE BY DR. GARCIA.
--- NOTE | 2019-11-16 09:33 | NUR ---
PT LEFT ROOM FOR EGD AT 0800. PT WAS AOX4 AND COOPERATIVE OF CARE. PT DID STATE SHE WAS HAVING STOMACH DISCOMFORT PRIOR TO LEAVING ROOM. WILL MONITOR WHEN SHE GET BACK TO ROOM.
[2019-11-16] MEDS ORDERED: SUCR1 PO (16:06)
[2019-11-16] MEDS ORDERED: OMEP20ER PO (16:07)
--- NOTE | 2019-11-16 16:42 | NUR ---
PT DISCHARGED AT 1630. PT COMPLETED EGD WITH DR GARCIA TODAY. DR GARCIA STATED PT COULD DISCHARGE IF SHE WAS ABLE TO EAT MECHANICAL SOFT DIET WITH OUT ABDOMINAL PAIN. DIET WAS ORDERED AND PT DENIED ANY ABDOMINAL PAIN. DR CORTES WAS NOTIFIED OF DR GARCIA'S INSTRUCTIONS AND PT WAS OKAYED TO DISCHARGE TODAY. ALL PAPERWORK WAS SIGNED AND EDUCATIONAL MATERIAL SENT WITH PT. PT DENIED ANY PAIN AT DISCHARGE. PT ESCORTED VIA WHEEL CHAIR BY THIS STUDENT EDUCATION SPECIALIST TO N ENTRANCE.FAMILY TO TRANSPORT. MEDICATION FAXED TO [facility].
== END 2019-11-16 16:48 | disposition home or self-care (01) | DRG 439 ==
LOC: ER 15:03 → MEDS 15:04
PROVIDERS: Internal Medicine; Internal Medicine Gastroenterology; Nurse Practitioner Acute Care; Physician Assistant; ADMIT Internal Medicine
PROC: 0DD68ZX Extraction of Stomach, Via Natural or Artificial Opening Endoscopic, Diagnostic (ICD-10-PCS; 2019-11-16)
PROC: 0DD38ZX Extraction of Lower Esophagus, Via Natural or Artificial Opening Endoscopic, Diagnostic (ICD-10-PCS; principal; 2019-11-16 09:00)
DX: K85.90 Acute pancreatitis without necrosis or infection, unspecified (principal); E87.1 Hypo-osmolality and hyponatremia; E86.0 Dehydration; K21.9 Gastro-esophageal reflux disease without esophagitis; E87.6 Hypokalemia; F41.9 Anxiety disorder, unspecified; K85.20 Alcohol induced acute pancreatitis without necrosis or infection; R13.10 Dysphagia, unspecified; F10.10 Alcohol abuse, uncomplicated; D63.8 Anemia in other chronic diseases classified elsewhere; K70.10 Alcoholic hepatitis without ascites; Z20.828 Contact with and (suspected) exposure to other viral communicable diseases
CPT/HCPCS: 36415; 71260; 74177; 80048; 80053; 80069; 81001; 82607; 82728; 82746; 83036; 83540; 83550; 83690; 83735; 84100; 85025; 85027; 87086; 88305; 88312; 88342; 96365-59; 96366; 96366-59; 96367; 96372-59; 96375; 96375-59; 96376; 99284-25; C9113; G0378; J1170; J1650; J2250; J2405; J2704; J2765; J3411; J3475; J3480; J7030; J7042; J7060; J7120; Q9967; U0002

== ENCOUNTER 2020-03-27 14:31 | Emergency (ER) | payer OTHER ==
[~2020-03-27] VITALS: Ht 167.6 cm; Wt 65.3 kg
[~2020-03-27 14:31] MED LIST changes: +OMEP20ER PO; +SUCR1 PO
[2020-03-27] MEDS ORDERED: HYDHCL25 PO (14:39)
[2020-03-27 15:06] LABS: BASOPHILS ABSOLUTE AUTO 0.07 K/mm3 (0.00-0.23); BASOPHILS PERCENT AUTO 1 % (0-2); EOSINOPHILS PERCENT AUTO 0 % (0-6); Hematocrit 39.9 % (33.0-51.0); Hemoglobin 13.8 g/dL (11.5-16.0); IMMATURE GRAN ABSOLUTE AUTO 0.02 K/mm3 (0.00-0.10); IMMATURE GRAN PERCENT AUTO 0 % (0-1); LYMPHOCYTES ABSOLUTE AUTO 0.96 K/mm3 (0.84-5.20); LYMPHOCYTES PERCENT AUTO 13 % (21-46); MONOCYTES ABSOLUTE AUTO 0.26 K/mm3 (0.16-1.47); MONOCYTES PERCENT AUTO 4 % (4-13); Mean Corpuscular HGB 32.9 pg (26.0-34.0); Mean Corpuscular HGB Conc 34.6 g/dL (31.5-36.5); Mean Corpuscular Volume 95 fL (80-100); Mean Platelet Volume 10.4 fL (9.1-12.4); NEUTROPHILS ABSOLUTE AUTO 5.93 K/mm3 (1.96-9.15); NEUTROPHILS PERCENT AUTO 82 % (41-73); Platelet Count 372 K/mm3 (150-400); RDW Coefficient Variation 14.6 % (11.7-14.2); RDW Standard Deviation 51.7 fL (35.1-46.3); White Blood Cell Count 7.24 K/mm3 (4.00-11.30)
[2020-03-27 15:32] LABS: Alanine Aminotransfer (ALT/SGP 51 U/L (12-78); Albumin, Blood 2.4 g/dL (3.4-5.0); Albumin/Globulin Ratio 0.5 (0.8-1.8); Alk Phos 170 U/L (50-136); Anion Gap 16 mmol/L (6-16); Aspartate Aminotrans (AST/SGOT 141 U/L (12-37); Bilirubin, Total 1.1 mg/dL (0.1-1.0); Blood Urea Nitrogen 3 mg/dL (8-24); Bun/Creatinine Ratio 5.3 (12.0-20.0); CO2, Blood 20 mmol/L (21-32); Calcium, Blood 8.3 mg/dL (8.5-10.1); Chloride, Blood 105 mmol/L (98-108); Creatinine, Blood 0.57 mg/dL (0.40-1.00); Globulin, Blood 4.5 g/dL (2.2-4.0); Glomerular Filtration Rate >60 (60-); Glucose, Blood 137 mg/dL (70-99); Sodium, Blood 141 mmol/L (136-145); Total Protein, Blood 6.9 g/dL (6.4-8.2)
[2020-03-27] MEDS ORDERED: AZIT250 PO (16:31)
[2020-03-27] MEDS ORDERED: BENZ100A PO (16:31)
== END 2020-03-27 16:57 | disposition home or self-care (01) ==
LOC: ER 14:31
PROVIDERS: Emergency Medicine
DX: J18.9 Pneumonia, unspecified organism (principal); E87.6 Hypokalemia; R11.10 Vomiting, unspecified; F41.9 Anxiety disorder, unspecified; Z88.8 Allergy status to other drugs, medicaments and biological substances; Z79.899 Other long term (current) drug therapy; Z87.891 Personal history of nicotine dependence
CPT/HCPCS: 36415; 71045; 80053; 83690; 85025; 93005; 93010; 96361; 96374; 99285-25; J2060; J7030

== ENCOUNTER 2020-04-01 09:33 | Emergency (ER) | payer OTHER ==
[~2020-04-01] VITALS: Ht 167.6 cm; Wt 65.3 kg
[~2020-04-01 09:33] MED LIST changes: +AZIT250 PO; +BENZ100A PO; +HYDHCL25 PO
[2020-04-01 11:00] LABS: BASOPHILS ABSOLUTE AUTO 0.07 K/mm3 (0.00-0.23); BASOPHILS PERCENT AUTO 1 % (0-2); EOSINOPHILS ABSOLUTE AUTO 0.02 K/mm3 (0.00-0.68); EOSINOPHILS PERCENT AUTO 0 % (0-6); Hematocrit 38.2 % (33.0-51.0); Hemoglobin 13.2 g/dL (11.5-16.0); IMMATURE GRAN ABSOLUTE AUTO 0.03 K/mm3 (0.00-0.10); IMMATURE GRAN PERCENT AUTO 1 % (0-1); LYMPHOCYTES ABSOLUTE AUTO 1.21 K/mm3 (0.84-5.20); LYMPHOCYTES PERCENT AUTO 23 % (21-46); MONOCYTES ABSOLUTE AUTO 0.28 K/mm3 (0.16-1.47); MONOCYTES PERCENT AUTO 5 % (4-13); Mean Corpuscular HGB 32.8 pg (26.0-34.0); Mean Corpuscular HGB Conc 34.6 g/dL (31.5-36.5); Mean Corpuscular Volume 95 fL (80-100); Mean Platelet Volume 10.3 fL (9.1-12.4); NEUTROPHILS ABSOLUTE AUTO 3.68 K/mm3 (1.96-9.15); NEUTROPHILS PERCENT AUTO 70 % (41-73); Platelet Count 320 K/mm3 (150-400); RDW Coefficient Variation 15.2 % (11.7-14.2); RDW Standard Deviation 52.7 fL (35.1-46.3); Red Blood Cell Count 4.02 M/mm3 (3.80-5.20); White Blood Cell Count 5.29 K/mm3 (4.00-11.30)
[2020-04-01 11:41] LABS: Alanine Aminotransfer (ALT/SGP 54 U/L (12-78); Albumin, Blood 2.3 g/dL (3.4-5.0); Albumin/Globulin Ratio 0.5 (0.8-1.8); Alk Phos 176 U/L (50-136); Anion Gap 10 mmol/L (6-16); Aspartate Aminotrans (AST/SGOT 145 U/L (12-37); Blood Urea Nitrogen 3 mg/dL (8-24); Bun/Creatinine Ratio 5.8 (12.0-20.0); CO2, Blood 26 mmol/L (21-32); Calcium, Blood 8.2 mg/dL (8.5-10.1); Chloride, Blood 106 mmol/L (98-108); Creatinine, Blood 0.51 mg/dL (0.40-1.00); Globulin, Blood 4.3 g/dL (2.2-4.0); Glomerular Filtration Rate >60 (60-); Glucose, Blood 123 mg/dL (70-99); Potassium, Blood 3.8 mmol/L (3.5-5.5); Sodium, Blood 142 mmol/L (136-145); Total Protein, Blood 6.6 g/dL (6.4-8.2)
[2020-04-01] MEDS ORDERED: PRED20 PO (11:54)
[2020-04-01] MEDS ORDERED: ALBU90OI INH (11:54)
[2020-04-01] MEDS ORDERED: ONDA4ODT MM (11:54)
== END 2020-04-01 12:25 | disposition home or self-care (01) ==
LOC: ER 09:33
PROVIDERS: Emergency Medicine
DX: R05 Cough (principal); R11.2 Nausea with vomiting, unspecified; R19.7 Diarrhea, unspecified; R94.5 Abnormal results of liver function studies; F41.9 Anxiety disorder, unspecified; Z88.8 Allergy status to other drugs, medicaments and biological substances; Z79.899 Other long term (current) drug therapy; Z87.891 Personal history of nicotine dependence
CPT/HCPCS: 36415; 71045; 80053; 83690; 85025; 96361; 96374; 99283-25; J2405; J7030

== ENCOUNTER 2020-04-18 05:49 | Inpatient (IN) | payer OTHER ==
[~2020-04-18] VITALS: Ht 167.6 cm; Wt 67.1 kg
[~2020-04-18 05:49] MED LIST changes: +ALBU90OI INH; +ONDA4ODT MM; +PRED20 PO
[2020-04-18 07:07] LABS: BASOPHILS PERCENT AUTO 2 % (0-2); EOSINOPHILS PERCENT AUTO 0 % (0-6); Hematocrit 41.1 % (33.0-51.0); Hemoglobin 14.1 g/dL (11.5-16.0); IMMATURE GRAN ABSOLUTE AUTO 0.02 K/mm3 (0.00-0.10); IMMATURE GRAN PERCENT AUTO 0 % (0-1); LYMPHOCYTES PERCENT AUTO 22 % (21-46); MONOCYTES ABSOLUTE AUTO 0.23 K/mm3 (0.16-1.47); MONOCYTES PERCENT AUTO 4 % (4-13); Mean Corpuscular HGB 33.8 pg (26.0-34.0); Mean Corpuscular HGB Conc 34.3 g/dL (31.5-36.5); Mean Corpuscular Volume 99 fL (80-100); NEUTROPHILS ABSOLUTE AUTO 3.89 K/mm3 (1.96-9.15); NEUTROPHILS PERCENT AUTO 72 % (41-73); NRBC ABSOLUTE 0.02 K/mm3 (0.00-0.02); NRBC Auto 0.4 /100 WBC (0.0-0.2); Platelet Count 217 K/mm3 (150-400); RDW Standard Deviation 61.4 fL (35.1-46.3); Red Blood Cell Count 4.17 M/mm3 (3.80-5.20); White Blood Cell Count 5.44 K/mm3 (4.00-11.30)
[2020-04-18 07:18] LABS: Alanine Aminotransfer (ALT/SGP 71 U/L (12-78); Albumin, Blood 2.4 g/dL (3.4-5.0); Albumin/Globulin Ratio 0.5 (0.8-1.8); Alk Phos 223 U/L (50-136); Anion Gap 17 mmol/L (6-16); Aspartate Aminotrans (AST/SGOT 315 U/L (12-37); Bilirubin, Total 1.9 mg/dL (0.1-1.0); Blood Urea Nitrogen 7 mg/dL (8-24); Bun/Creatinine Ratio 14.1 (12.0-20.0); CO2, Blood 23 mmol/L (21-32); Chloride, Blood 99 mmol/L (98-108); Globulin, Blood 4.5 g/dL (2.2-4.0); Glomerular Filtration Rate >60 (60-); Glucose, Blood 164 mg/dL (70-99); Potassium, Blood 3.3 mmol/L (3.5-5.5); Sodium, Blood 139 mmol/L (136-145); Total Protein, Blood 6.9 g/dL (6.4-8.2)
[2020-04-18 07:58] LABS: Source, Urine Clean Catch
[2020-04-18 08:05] LABS: Blood, Urine 5+ (Neg); Glucose Qualitative, Urine Neg (Neg); Ketones, Urine 2+ (Neg); Leukocyte Esterase, Urine 1+ (Neg); Nitrite, Urine Pos (Neg); Protein, Urine 3+ (Neg); Urobilinogen, Urine 3+ (Normal)
[2020-04-18 08:19] LABS: Appearance, Urine Cloudy (Clear); Bilirubin, Urine 1+ (Neg); Color, Urine Amber (P-Yellow)
[2020-04-18 08:21] LABS: Bacteria Many /hpf; Red Blood Cells, Urine TNTC /hpf (0-2); Squamous Epithelial Cells Many /hpf (Few); White Blood Cells, Urine 0-2 /hpf (0-5)
[2020-04-18 08:22] LABS: Mucus Mod (0-Heavy)
[2020-04-18 08:55] LABS: Influenza A, PCR Negative (NEGATIVE); Influenza B, PCR Negative (NEGATIVE); Resp Syncytial Virus, PCR Negative (NEGATIVE); SARS-Cov-2 (COVID-19) PCR, MMC Positive (NEGATIVE)
[2020-04-18 13:49] LABS: Alanine Aminotransfer (ALT/SGP 64 U/L (12-78); Albumin, Blood 2.1 g/dL (3.4-5.0); Albumin/Globulin Ratio 0.6 (0.8-1.8); Alk Phos 188 U/L (50-136); Anion Gap 9 mmol/L (6-16); Aspartate Aminotrans (AST/SGOT 400 U/L (12-37); Bilirubin, Total 2.5 mg/dL (0.1-1.0); Blood Urea Nitrogen 7 mg/dL (8-24); Bun/Creatinine Ratio 16.6 (12.0-20.0); CO2, Blood 25 mmol/L (21-32); Calcium, Blood 7.1 mg/dL (8.5-10.1); Chloride, Blood 106 mmol/L (98-108); Creatinine, Blood 0.42 mg/dL (0.40-1.00); Globulin, Blood 3.5 g/dL (2.2-4.0); Glomerular Filtration Rate >60 (60-); Glucose, Blood 146 mg/dL (70-99); Potassium, Blood 3.8 mmol/L (3.5-5.5); Sodium, Blood 140 mmol/L (136-145); Total Protein, Blood 5.6 g/dL (6.4-8.2)
--- NOTE | 2020-04-18 18:50 | NUR ---
1550 RECEIVED PT TO RM 310 VIA W/C FROM ER. PT ADMITTED FOR COVID-19, PYLEONEPHRITIS, AND LACTIC ACIDOSIS. PT IS A&O, SBA TO BTHRM D/T WEAKNESS, LINES AND TUBING. PT REPORTED THAT SHE CAME DOWN WITH PNM 3 WEEKS AGO AND THEN HER S/O GOT COVID-19 FROM WORK AND BROUGHT IT HOME TO HER. VSS; SEE CHART. PT TO BE NPO AFTER MN FOR ABD US IN AM. BREAKFAST TO BE HELD UNTIL US IS COMPLETE. MEDICATIONS GIVEN W/O DIFFICULTY. REPORT GIVEN TO ONCOMING RN.
--- NOTE | 2020-04-19 04:58 | NUR ---
SHIFT SUMMARY PATIENT HAD NO ACUTE CHANGES OBSERVED. AXOX 4 AND INDEPENDENT IN ROOM. PIV REMAINS INTACT. BANANA BAG FINISHED INFUSING AT 200 mL/HR FOLLOWED BY NS AT 200 mL/HR. TAKES MEDS WHOLE WITH WATER. PRODUCT PLANNER REPORTS NSR 77 AND ON RA. REPORTED ABDOMINAL AND LOW BACK PAIN. IV TORADOL 15 MG GIVEN PER EMAR. DENIES SOB AND N/V. VSS/AFEBRILE. NPO > MIDNIGHT. REPORTS SHE DRINKS WHISKEY DAILY. CIWA ONE FOR TREMORS BUT MAY BE LACK OF FOOD EATEN RELATED. CALL LIGHT IN REACH. BED IN LOWEST POSITION. WILL CONTINUE TO MONITOR UNTIL DAY SHIFT NURSE ASSUMES CARE.
[2020-04-19 05:27] LABS: BASOPHILS ABSOLUTE AUTO 0.05 K/mm3 (0.00-0.23); BASOPHILS PERCENT AUTO 1 % (0-2); EOSINOPHILS ABSOLUTE AUTO 0.07 K/mm3 (0.00-0.68); EOSINOPHILS PERCENT AUTO 2 % (0-6); Hematocrit 28.5 % (33.0-51.0); Hemoglobin 9.8 g/dL (11.5-16.0); IMMATURE GRAN ABSOLUTE AUTO 0.01 K/mm3 (0.00-0.10); IMMATURE GRAN PERCENT AUTO 0 % (0-1); LYMPHOCYTES ABSOLUTE AUTO 1.97 K/mm3 (0.84-5.20); LYMPHOCYTES PERCENT AUTO 42 % (21-46); MONOCYTES ABSOLUTE AUTO 0.27 K/mm3 (0.16-1.47); MONOCYTES PERCENT AUTO 6 % (4-13); Mean Corpuscular HGB 34.4 pg (26.0-34.0); Mean Corpuscular HGB Conc 34.4 g/dL (31.5-36.5); Mean Corpuscular Volume 100 fL (80-100); Mean Platelet Volume 11.9 fL (9.1-12.4); NEUTROPHILS ABSOLUTE AUTO 2.38 K/mm3 (1.96-9.15); NEUTROPHILS PERCENT AUTO 50 % (41-73); NRBC ABSOLUTE 0.02 K/mm3 (0.00-0.02); NRBC Auto 0.4 /100 WBC (0.0-0.2); Platelet Count 127 K/mm3 (150-400); RDW Coefficient Variation 16.8 % (11.7-14.2); RDW Standard Deviation 60.6 fL (35.1-46.3); Red Blood Cell Count 2.85 M/mm3 (3.80-5.20); White Blood Cell Count 4.75 K/mm3 (4.00-11.30)
[2020-04-19 05:44] LABS: Source, Urine Clean Catch
[2020-04-19 05:46] LABS: Appearance, Urine Clear (Clear); Blood, Urine 5+ (Neg); Color, Urine Amber (P-Yellow); Glucose Qualitative, Urine Neg (Neg); Ketones, Urine 1+ (Neg); Leukocyte Esterase, Urine 1+ (Neg); Nitrite, Urine Neg (Neg); Protein, Urine 2+ (Neg); Urobilinogen, Urine 4+ (Normal); pH, Urine 6.5 (5.0-8.0)
[2020-04-19 05:49] LABS: Bilirubin, Urine 2+ (Neg)
[2020-04-19 05:50] LABS: Alanine Aminotransfer (ALT/SGP 57 U/L (12-78); Albumin, Blood 1.8 g/dL (3.4-5.0); Albumin/Globulin Ratio 0.6 (0.8-1.8); Alk Phos 162 U/L (50-136); Anion Gap 4 mmol/L (6-16); Aspartate Aminotrans (AST/SGOT 282 U/L (12-37); Blood Urea Nitrogen 6 mg/dL (8-24); Bun/Creatinine Ratio 12.6 (12.0-20.0); CO2, Blood 28 mmol/L (21-32); Calcium, Blood 7.1 mg/dL (8.5-10.1); Chloride, Blood 107 mmol/L (98-108); Creatinine, Blood 0.48 mg/dL (0.40-1.00); Globulin, Blood 2.9 g/dL (2.2-4.0); Glomerular Filtration Rate >60 (60-); Glucose, Blood 67 mg/dL (70-99); Magnesium, Blood 1.9 mg/dL (1.6-2.4); Phosphorus, Blood 2.6 mg/dL (2.5-4.9); Potassium, Blood 3.3 mmol/L (3.5-5.5); Sodium, Blood 139 mmol/L (136-145); Total Protein, Blood 4.7 g/dL (6.4-8.2)
[2020-04-19 05:51] LABS: Red Blood Cells, Urine 25-50 /hpf (0-2)
[2020-04-19 05:52] LABS: Bacteria Many /hpf; Mucus Light (0-Heavy); Squamous Epithelial Cells Few /hpf (Few); Yeast/Fungi Urine Mod /hpf
--- NOTE | 2020-04-19 05:57 | NUR ---
UA COLLECTED AND WALKED TO LAB
--- NOTE | 2020-04-19 17:20 | NUR ---
SHIFT SUMMARY PT ALERT ORIENTED AND CALLS APPROPRIATELY. PT INDEPENDENT IN THE ROOM. NS AT 200ML/HR. PT PROGRESS GOOD PER DR; MIGHT DISCHARGE TOMORROW. PT ON TELE NSR @70S; PT ON RA AND SATS ABOVE 95% WITHOUT NO SOB AND NO DISTRESS. PT BED IS IN THE LOWEST POSITION AND CALL LIGHTS WITHIN REACH.
--- NOTE | 2020-04-20 03:49 | NUR ---
SHIFT SUMMARY HAS BEEN RESTING QUIETLY WITH A FEW INTERRUPTIONS. WAS MOVED FROM ROOM 310 TO 313 DURING THE SHIFT AND HAS REQUESTED AND RECEIVED ANALGESICS FOR ABD PAIN - SEE MAR FOR DETAILS. ALERT AND OREINTED AND UP AD FIORDALIZA NEEDED. IVF OF NS CONTINUES AT 200 ML/HR ORDERED. CURRENTLY WATCHING TV. CALL LIGHT IN REACH
[2020-04-20 06:38] LABS: BASOPHILS ABSOLUTE AUTO 0.05 K/mm3 (0.00-0.23); BASOPHILS PERCENT AUTO 1 % (0-2); EOSINOPHILS ABSOLUTE AUTO 0.12 K/mm3 (0.00-0.68); EOSINOPHILS PERCENT AUTO 2 % (0-6); Hematocrit 29.9 % (33.0-51.0); IMMATURE GRAN ABSOLUTE AUTO 0.03 K/mm3 (0.00-0.10); IMMATURE GRAN PERCENT AUTO 1 % (0-1); LYMPHOCYTES ABSOLUTE AUTO 1.66 K/mm3 (0.84-5.20); LYMPHOCYTES PERCENT AUTO 34 % (21-46); MONOCYTES ABSOLUTE AUTO 0.23 K/mm3 (0.16-1.47); MONOCYTES PERCENT AUTO 5 % (4-13); Mean Corpuscular HGB 34.6 pg (26.0-34.0); Mean Corpuscular HGB Conc 33.4 g/dL (31.5-36.5); Mean Corpuscular Volume 104 fL (80-100); Mean Platelet Volume 11.2 fL (9.1-12.4); NEUTROPHILS ABSOLUTE AUTO 2.81 K/mm3 (1.96-9.15); NEUTROPHILS PERCENT AUTO 57 % (41-73); NRBC ABSOLUTE 0.02 K/mm3 (0.00-0.02); NRBC Auto 0.4 /100 WBC (0.0-0.2); Platelet Count 124 K/mm3 (150-400); RDW Coefficient Variation 16.7 % (11.7-14.2); RDW Standard Deviation 63.7 fL (35.1-46.3); Red Blood Cell Count 2.89 M/mm3 (3.80-5.20)
[2020-04-20 06:59] LABS: Alanine Aminotransfer (ALT/SGP 42 U/L (12-78); Albumin, Blood 1.8 g/dL (3.4-5.0); Albumin/Globulin Ratio 0.6 (0.8-1.8); Alk Phos 159 U/L (50-136); Anion Gap 6 mmol/L (6-16); Aspartate Aminotrans (AST/SGOT 129 U/L (12-37); Bilirubin, Total 2.3 mg/dL (0.1-1.0); Blood Urea Nitrogen 3 mg/dL (8-24); Bun/Creatinine Ratio 6.4 (12.0-20.0); CO2, Blood 26 mmol/L (21-32); Calcium, Blood 7.4 mg/dL (8.5-10.1); Chloride, Blood 109 mmol/L (98-108); Creatinine, Blood 0.47 mg/dL (0.40-1.00); Globulin, Blood 2.9 g/dL (2.2-4.0); Glomerular Filtration Rate >60 (60-); Glucose, Blood 80 mg/dL (70-99); Phosphorus, Blood 3.4 mg/dL (2.5-4.9); Potassium, Blood 3.3 mmol/L (3.5-5.5); Sodium, Blood 141 mmol/L (136-145); Total Protein, Blood 4.7 g/dL (6.4-8.2)
--- NOTE | 2020-04-20 10:52 | NUR ---
PT IS A/OX3 THIS AM APPEARS TO BE BREATHING EASILY AT THIS TIME ON RA, CALL LIGHT IN REACH WILL CONTINUE TO MONITOR AND ASSESS FOR CHANGES
--- NOTE | 2020-04-20 16:43 | NUR ---
PT IS A/OX3, PLEASANT AND COOPERATIVE, THE PT IS UP IND IN HER ROOM, MILDLY SOB WITH AMBULATION, THE PT REPORTED SOME MILD ABD PAIN THIS AM, REPORTED THAT IT WAS CONTROLED AT THIS TIME, THE WAS GIVEN 1 DOSE OF ATIVAN 2MG FOR ANXIETY PREP FOR MRI TODAY, THE PT APPEARS TO BE BREATHING EASILY ON RA AT THIS TIME, AND HAS TOLERATED HER MEALS SO FAR TODAY, CALL LIGHT IN REACH, WILL CONTINUE TO MONITOR AND ASSESS FOR CHANGES
[2020-04-21 06:22] LABS: Alanine Aminotransfer (ALT/SGP 34 U/L (12-78); Albumin, Blood 1.5 g/dL (3.4-5.0); Albumin/Globulin Ratio 0.6 (0.8-1.8); Alk Phos 145 U/L (50-136); Anion Gap 6 mmol/L (6-16); Aspartate Aminotrans (AST/SGOT 90 U/L (12-37); Bilirubin, Total 1.8 mg/dL (0.1-1.0); Blood Urea Nitrogen 3 mg/dL (8-24); Bun/Creatinine Ratio 9.1 (12.0-20.0); CO2, Blood 22 mmol/L (21-32); Chloride, Blood 113 mmol/L (98-108); Creatinine, Blood 0.33 mg/dL (0.40-1.00); Globulin, Blood 2.7 g/dL (2.2-4.0); Glomerular Filtration Rate >60 (60-); Glucose, Blood 86 mg/dL (70-99); Potassium, Blood 3.4 mmol/L (3.5-5.5); Sodium, Blood 141 mmol/L (136-145); Total Protein, Blood 4.2 g/dL (6.4-8.2)
--- NOTE | 2020-04-21 06:40 | NUR ---
SHIFT SUMMARY PT IS A 40 Y/O FEMALE, ADMITTED FOR BL PYELONEPHRITIS AND COVID19 POSITIVE. SHE IS A&O X 4, INDEPENDENT IN THE ROOM. PT WAS MEDICATED 3X FOR ABD AND BL FLANK PAIN WITH PRN IV DILAUDID. NO C/O NAUSEA OR SOB. VITAL SIGN STABLE. TELE SHOWED NSR IN THE 70S. PT RECEIVING NS @ 200 ML/HR. NO OTHER ACUTE CHANGES IN PT CONDITION NOTED. WILL CONTINUE TO MONITOR AND TREAT PER EMAR UNTIL HAND OFF TO DAY SHIFT RN.
[2020-04-21] MEDS ORDERED: FOLI1 PO (14:45)
[2020-04-21] MEDS ORDERED: Ativan1 MG PO (14:46)
[2020-04-21] MEDS ORDERED: THEREMS MULTI400 MCG PO (14:47)
[2020-04-21] MEDS ORDERED: OMEP20ER PO (14:47)
[2020-04-21] MEDS ORDERED: B-1100 M1 PO (14:48)
--- NOTE | 2020-04-21 15:53 | NUR ---
PT DISCHAREGED THE PT VERBALIZED UNDERSTANDING OF THE DC INSTRUCTIONS, PT APPEARED TO BE BREATHING EASILY ON RA AT THE TIME OF DC, THE PTS PRESCRIPTIONS WERE FAXED TO [facility] PER THE PTS REQUEST, THE PT WAS TRANSFERED VIA WHEELCHAIR ACCOMPANIED BY THE ASE MASTER MECHANIC, THE PT WAS REMINDED TO FOLLOW UP WITH HER PCP FOR A POST HOSPITAL REVIEW
== END 2020-04-21 16:02 | disposition home or self-care (01) | DRG 178 ==
LOC: ER 05:49 → MEDS 12:21
PROVIDERS: Emergency Medicine; Family Medicine; Internal Medicine Endocrinology, Diabetes & Metabolism; ADMIT Student in an Organized Health Care Education/Training Program
PROC: XW033E5 Introduction of Remdesivir Anti-infective into Peripheral Vein, Percutaneous Approach, New Technology Group 5 (ICD-10-PCS; principal; 2020-04-19)
PROC: XW033E5 Introduction of Remdesivir Anti-infective into Peripheral Vein, Percutaneous Approach, New Technology Group 5 (ICD-10-PCS; 2020-04-20)
PROC: XW033E5 Introduction of Remdesivir Anti-infective into Peripheral Vein, Percutaneous Approach, New Technology Group 5 (ICD-10-PCS; 2020-04-21)
DX: U07.1 COVID-19 (principal); E87.2 Acidosis; R65.10 Systemic inflammatory response syndrome (SIRS) of non-infectious origin without acute organ dysfunction; J90 Pleural effusion, not elsewhere classified; E87.6 Hypokalemia; Z87.891 Personal history of nicotine dependence; R20.2 Paresthesia of skin; K83.8 Other specified diseases of biliary tract; F10.20 Alcohol dependence, uncomplicated; R31.9 Hematuria, unspecified; K70.11 Alcoholic hepatitis with ascites; Y90.0 Blood alcohol level of less than 20 mg/100 ml
CPT/HCPCS: 0241U; 36415; 71045; 74181; 76705; 80053; 81001; 82010; 82607; 82746; 83605; 83690; 83735; 84100; 85025; 87040; 87086; 93005; 93010; 93291; 94762; 96361; 96365; 96375; 99285-25; C9113; G0480; J0696; J1170; J1650; J1885; J2060; J2405; J3010; J3411; J3475; J7030; J7042

== ENCOUNTER 2020-06-11 12:37 | Inpatient (IN) | payer OTHER ==
[~2020-06-11] VITALS: Ht 160 cm; Wt 85.2 kg
[~2020-06-11 12:37] MED LIST changes: +Ativan1 MG PO; +B-1100 M1 PO; +FOLI1 PO; -HYDHCL25 PO; +THEREMS MULTI400 MCG PO
[2020-06-11 12:59] LABS: BASOPHILS ABSOLUTE AUTO 0.01 K/mm3 (0.00-0.23); BASOPHILS PERCENT AUTO 0 % (0-2); EOSINOPHILS PERCENT AUTO 0 % (0-6); Hematocrit 26.2 % (33.0-51.0); Hemoglobin 8.7 g/dL (11.5-16.0); IMMATURE GRAN ABSOLUTE AUTO 0.08 K/mm3 (0.00-0.10); IMMATURE GRAN PERCENT AUTO 1 % (0-1); LYMPHOCYTES ABSOLUTE AUTO 1.34 K/mm3 (0.84-5.20); LYMPHOCYTES PERCENT AUTO 15 % (21-46); MONOCYTES ABSOLUTE AUTO 0.53 K/mm3 (0.16-1.47); MONOCYTES PERCENT AUTO 6 % (4-13); Mean Corpuscular HGB 36.1 pg (26.0-34.0); Mean Corpuscular HGB Conc 33.2 g/dL (31.5-36.5); Mean Corpuscular Volume 109 fL (80-100); Mean Platelet Volume 10.3 fL (9.1-12.4); NEUTROPHILS ABSOLUTE AUTO 7.24 K/mm3 (1.96-9.15); NEUTROPHILS PERCENT AUTO 79 % (41-73); Platelet Count 187 K/mm3 (150-400); RDW Coefficient Variation 15.5 % (11.7-14.2); RDW Standard Deviation 62.1 fL (35.1-46.3); Red Blood Cell Count 2.41 M/mm3 (3.80-5.20)
[2020-06-11 13:19] LABS: Albumin, Blood 1.5 g/dL (3.4-5.0); Albumin/Globulin Ratio 0.3 (0.8-1.8); Bilirubin, Total 11.3 mg/dL (0.1-1.0); Bun/Creatinine Ratio 3.2 (12.0-20.0); Creatinine, Blood 2.19 mg/dL (0.40-1.00); Globulin, Blood 4.6 g/dL (2.2-4.0); Total Protein, Blood 6.1 g/dL (6.4-8.2)
[2020-06-11 14:00] LABS: International Normalized Ratio 2.74; Prothrombin Time Results 27.7 Sec (9.7-11.5)
[2020-06-11] MEDS ORDERED: Ventolin/Prove6.7 GM INH (14:14)
[2020-06-11] MEDS ORDERED: HYDHCL25 PO (14:14)
[2020-06-11 14:50] LABS: Source, Urine Catheter
[2020-06-11 14:55] LABS: Appearance, Urine Cloudy (Clear); Blood, Urine 2+ (Neg); Color, Urine Brown (P-Yellow); Glucose Qualitative, Urine Neg (Neg); Ketones, Urine Neg (Neg); Leukocyte Esterase, Urine 1+ (Neg); Nitrite, Urine Pos (Neg); Protein, Urine 3+ (Neg); Specific Gravity, Urine 1.025 (1.003-1.022); Urobilinogen, Urine 2+ (Normal)
[2020-06-11 15:03] LABS: Bilirubin, Urine 3+ (Neg)
[2020-06-11 15:06] LABS: Bacteria Many /hpf; Squamous Epithelial Cells Few /hpf (Few); Transitional Epithelial Cells Few /hpf (0-Rare)
[2020-06-11 15:15] LABS: U Amphetamine Screen Not Detected; U Barbituate Screen Not Detected; U Benzodiazapine Screen Not Detected; U Buprenorphine Screen Not Detected; U Cannabinoids Screen Not Detected; U Cocaine Screen Not Detected; U Methadone Screen Not Detected; U Methamphetamine Screen Not Detected; U Opiates Screen Not Detected; U Oxycodone Screen Not Detected; U Phencyclidine Screen Not Detected; U Propoxyphene Screen Not Detected
--- NOTE | 2020-06-11 18:46 | NUR ---
PT ARRIVAL.... PT ARRIVED ON UNIT APROX 1700. PT IS A&Ox2 AT THIS TIME, SHE IS CONFUSED, PICKING AT HER IV DRESSING, TELE SICKERS ETC. PT KEEPS SITTING UP IN BED AND LAYING BACK DOWN AND FIDGETING. PT ALSO HAS TREMORS THAT HER S.O. SAYS HAS INCREASED THE LAAST FEW DAYS. PT'S VS STABLE ON ARRIVAL EXCEPT HER HR SHE IS IN SINUS TACH IN THE 120'S-140'S, PT DENIES CHEST PAIN/PRESSURE AT THIS TIME. PT IS ON RA WITH O2 SATS>90% L/S CLEAR T/O. BT PRESENT AND HYPOACTIVE, ABD HAS MODERATE DISTENTION, IS FIRM AND VERY TENDER TO PALP. PT DOES KNOW WHEN HER LAST BM WAS. NO EDEMA WAS NOTED ON ASSESSMENT. PT'S BP STABLE. PT HAS ETOH ABUSE ISSUES, PT'S NORMALLY DRINKS 1/5TH OF HARD ALCOHOL A DAY, PER HER S.O. ODALIS SHE ONLY HAD 1 SHOT ON 06/10 AND NOTHING TODAY. WILL CONTINUE TO MONITOR UNTIL REPORT IS GIVEN TO ONCOMING RN.
[2020-06-11 19:02] LABS: Hematocrit 25.3 % (33.0-51.0); Hemoglobin 8.2 g/dL (11.5-16.0)
[2020-06-11] MEDS ORDERED: TESSALON PERLE100 MG PO (19:07)
[2020-06-11] MEDS ORDERED: Ativan1 MG PO (19:08)
[2020-06-11] MEDS ORDERED: OMEP20ER PO (19:09)
[2020-06-11] MEDS ORDERED: Carafate1 GM/10 ML PO (19:10)
[2020-06-11] MEDS ORDERED: B-1100 M1 PO (19:11)
[2020-06-11 19:53] LABS: Influenza A, PCR NEGATIVE (NEGATIVE); Influenza B, PCR NEGATIVE (NEGATIVE); Resp Syncytial Virus, PCR NEGATIVE (NEGATIVE); SARS-Cov-2 (COVID-19) PCR, MMC NEGATIVE (NEGATIVE)
--- NOTE | 2020-06-11 23:09 | NUR ---
ASSUMED CARE AT 1900 PT FIANCE JUST LEFT DURING SHIFT CHANGE. PT LAYING IN BED AND IS ALERT AND ORIENTED BUT IS VERY TRMORUS AND UNABLE TO LAY STILL. PT ALSO PICKING OFF O2 SAT PROBE AND CARDIAC MONITORING ELECTRODES. CIWA IS 12, PT SLIGHTLY NAUSEOUS, MILD HEADACHE, MORE SEVERE TREMORS, AND SLIGHTLY AGGITATED AND ANXIOUS. PRN ATIVAN GIVEN AND HELPFUL BRINGING CIWA TO 9. O2 SAT >95% ON RA. AFIBRILE. SINUS TACHYCARDIC 120-130. SBP 100-120. PT HAS BRUISES SCATTERED T/O BUE. SLIGHT JAUNDICE TO SKIN, JAUNDICE NOTED TO BILATERAL EYES. RT AC PERIFERAL LEAKING AND THEN D/C. NEW IV PLACED, SEE VASCULAR ACCESS. SEE SHIFT ASSESSMENT FOR FULL ASSESSMENT.
[2020-06-12 00:58] LABS: Hematocrit 24.9 % (33.0-51.0); Hemoglobin 8.2 g/dL (11.5-16.0)
[2020-06-12 06:07] LABS: Source, Urine Catheter
[2020-06-12 06:11] LABS: Blood, Urine 2+ (Neg); Glucose Qualitative, Urine Neg (Neg); Ketones, Urine 1+ (Neg); Leukocyte Esterase, Urine 1+ (Neg); Nitrite, Urine Pos (Neg); Protein, Urine 3+ (Neg); Specific Gravity, Urine 1.015 (1.003-1.022); Urobilinogen, Urine 2+ (Normal)
[2020-06-12 06:16] LABS: Appearance, Urine Hazy (Clear); Color, Urine Brown (P-Yellow)
[2020-06-12 06:17] LABS: Bilirubin, Urine 3+ (Neg)
--- NOTE | 2020-06-12 06:17 | NUR ---
END OF SHIFT SUMMARY PT SHOWING INCREASED CONFUSION T/O SHIFT. PT IS ABLE TO ANSWER YES/NO QUESTIONS BUT IS VERY DROWSY AND DIFFICULT TO KEEP EYES OPEN RIGHT NOW. CIWA RANGED FROM 6-20; PRN ATIVAN GIVEN TWICE. MAX TEMP 99.4. O2 SAT >95% ON RA. HR 115-140. SBP 100-110. ORDER PROVIDED TO INSERT JO CATHETER DUE TO RETENTION; BLADDER SCAN SHOWED >700ML, 350ML OF DARK ASHU URINE SO FAR. PROTONIX INFUSING, OCTREOTIDE INFUSING, 1/2 NS INFUSING. PT ABLE TO TOLERATE SIPS OF WATER WITHOUT SIGNS OF ASPIRATION. WILL REPORT TO AM RN WHEN AVAILABLE.
[2020-06-12 06:22] LABS: Bacteria Many /hpf; Squamous Epithelial Cells Few /hpf (Few)
[2020-06-12 06:23] LABS: Transitional Epithelial Cells Few /hpf (0-Rare)
[2020-06-12 06:33] LABS: Amorphous Mod (0-Heavy); Other Crystals Few /hpf
[2020-06-12 07:26] LABS: Hematocrit 24.2 % (33.0-51.0); Mean Corpuscular HGB 36.4 pg (26.0-34.0); Mean Corpuscular HGB Conc 33.1 g/dL (31.5-36.5); Mean Corpuscular Volume 110 fL (80-100); Mean Platelet Volume 10.5 fL (9.1-12.4); NRBC ABSOLUTE 0.04 K/mm3 (0.00-0.02); NRBC Auto 0.4 /100 WBC (0.0-0.2); Platelet Count 140 K/mm3 (150-400); RDW Coefficient Variation 14.9 % (11.7-14.2); RDW Standard Deviation 59.3 fL (35.1-46.3); White Blood Cell Count 10.31 K/mm3 (4.00-11.30)
[2020-06-12 07:35] LABS: International Normalized Ratio 2.94; Prothrombin Time Results 29.6 Sec (9.7-11.5)
[2020-06-12 07:42] LABS: Albumin, Blood 1.3 g/dL (3.4-5.0); Albumin/Globulin Ratio 0.3 (0.8-1.8); Bilirubin, Total 11.3 mg/dL (0.1-1.0); Bun/Creatinine Ratio 3.6 (12.0-20.0); Calcium, Blood 6.8 mg/dL (8.5-10.1); Creatinine, Blood 2.22 mg/dL (0.40-1.00); Globulin, Blood 4.5 g/dL (2.2-4.0); Magnesium, Blood 2.1 mg/dL (1.6-2.4); Phosphorus, Blood 3.8 mg/dL (2.5-4.9); Potassium, Blood 3.9 mmol/L (3.5-5.5); Total Protein, Blood 5.8 g/dL (6.4-8.2)
[2020-06-12 07:46] LABS: BAND PERCENT MAN 1 % (0-8); BASOPHILS PERCENT MAN 0 % (0-2); EOSINOPHILS PERCENT MAN 0 % (0-6); LYMPHOCYTES ABSOLUTE MAN 1.75 K/mm3 (0.84-5.20); LYMPHOCYTES PERCENT MAN 17 % (21-46); MONOCYTES ABSOLUTE MAN 0.61 K/mm3 (0.16-1.47); MONOCYTES PERCENT MAN 6 % (4-13); NEUTROPHILS ABSOLUTE MAN 7.93 K/mm3 (1.96-9.15); SEG NEUTROPHILS PERCENT MAN 76 % (41-73); TOTAL CELLS COUNTED 100
--- NOTE | 2020-06-12 10:49 | NUR ---
AM NOTE... ASSUMED CARE OF PT APROX 0700. PT IS A&Ox1 PT RESPONDS TO VERBAL STIMULI BUT DOES NOT ANSWER QUESTIONS OR FOLLOW COMMANDS. PT IS IN SINUS/SINUS TACH IN THE 80'S-120'S W/MOVING IN THE BED. PT'S BP STABLE BUT ON THE SOFT SIDE. L/S CLEAR T/O ON RA. BT PRESENT BUT HYPOACTIVE, ABD HAS MODERATE DISTENTION, IS FIRM AND VERY TENDER TO PALP. NO EDEMA IS NOTED ON ASSESSMENT. PT'S SKIN AND SCLERA IS JAUNDICED. PT'S JO IS PATENT AND DRAINING DARK YELLOW/BROWN CLEAR URINE TO GRAVITY. WILL CONTINUE TO MONITOR., BED ALARM IS ON.
[2020-06-12 14:23] LABS: Hematocrit 20.2 % (33.0-51.0); Hemoglobin 6.7 g/dL (11.5-16.0)
[2020-06-12 14:30] LABS: Calcium, Blood 6.5 mg/dL (8.5-10.1); Creatinine, Blood 1.99 mg/dL (0.40-1.00); Potassium, Blood 3.3 mmol/L (3.5-5.5)
--- NOTE | 2020-06-12 18:29 | NUR ---
SHIFT SUMMARY... PT HAS BEEN SOMNOLENT T/O THE SHIFT, SHE RESPONDS TO PAINFUL STIMULI AND REPOSITIONING IN THE BED, SHE BECOMES RESISTANT TO CARE AND BECOMES STIFF AND PUSHES AGAINST THE BEDRAILS DURING TURNS OR CARE. PT'S VS HAVE BEEN STABLE T/O SHIFT. GI PROVIDER AT THE BEDSIDE THIS AFTERNOON STATED HE DID NOT WANT TO SCOPE HER AT THIS TIME, EFM PROVIDER WAS UPDATED. PT'S HGB DROPPED THIS AFTERNOON FROM 8.0 TO 6.7, EFM PROVIDER UPDATED ON THIS WELL AND 2 UNITS OF PRBCs WAS ORDERED THE FIRST UNIT IS TRANSFUSING AT THIS TIME. PT HAS HAD A SMALL CELINE YELLOW BM. PT ALSO STARTED MENSTRATING, THERE WAS A MODERATE AMOUNT OF BLOOD ON THE FAGAN PAD. THE PT'S JO IS PATENT AND DRAINING DARK ASHU/BROWN URINE TO GRAVITY, IT WAS NOTED THAT THERE IS NOW SEDIMENT IN THE JO TUBING WHEN HER URINE WAS CLEAR ALL SHIFT. PT ONLY HAD 200MLS OF URINE OUT THIS SHIFT. PT'S CWIA SCORES HAVE BEEN 6 MOST OF THE SHIFT. PT'S S.O. AT THE BEDSIDE THIS AFTERNOON HE WAS UPDATED ON HER CONDITION AND PLAN OF CARE. PT'S MOTHER WHO IS ON THE WAY FROM [place] ALSO UPDATED SEVERAL TIMES THIS SHIFT. CALL LIGHT IN REACH, BED ALARM IS ON WILL CONTINUE TO MONTIOR UNTIL REPORT IS GIVEN TO ONCOMING RN.
--- NOTE | 2020-06-12 22:43 | NUR ---
ASSUMED CARE AT 1900 PT LAYING IN BED VERY SOMNOLENT AND BECOMES MORE ALERT WITH PAINFUL STIMULATION. PT WAS ABLE TO NOD NO TO "CAN YOU OPEN YOUR EYES?" AND THEN NODDED YES TO "DO YOU WANT TO BE LEFT ALONE?". INCREASED IRRITABLILITY ALSO WITH ORAL STIMULATION WITH ORAL SPONGE. PT HAS EPISODES OF MODERATE TREMORS. CIWA 11, PRN ATIVAN GIVEN. 1 UNIT PRBC FINISHED INFUSING AT SHIFT CHANGE, 1 ADDITIONAL UNIT PRBC STARTED AT 1954. PLAN TO DRAW H&H AT 2350. O2 SAT >95% ON RA. HR 110-140. SBP 105-140. JO IN PLACE AND DRAINING TO GRAVITY; URINE DARK YELLOW. PROTONIX INFUSING; D5 1/2NS WITH 20MEQ POTASSIUM INFUSING. SEE SHIFT ASSESSMENT FOR FULL ASSESSMENT.
[2020-06-13 00:01] LABS: Hematocrit 28.1 % (33.0-51.0); Hemoglobin 9.3 g/dL (11.5-16.0)
[2020-06-13 05:51] LABS: BASOPHILS ABSOLUTE AUTO 0.02 K/mm3 (0.00-0.23); BASOPHILS PERCENT AUTO 0 % (0-2); EOSINOPHILS ABSOLUTE AUTO 0.06 K/mm3 (0.00-0.68); EOSINOPHILS PERCENT AUTO 1 % (0-6); Hematocrit 29.1 % (33.0-51.0); Hemoglobin 9.5 g/dL (11.5-16.0); IMMATURE GRAN ABSOLUTE AUTO 0.03 K/mm3 (0.00-0.10); IMMATURE GRAN PERCENT AUTO 0 % (0-1); LYMPHOCYTES ABSOLUTE AUTO 1.14 K/mm3 (0.84-5.20); LYMPHOCYTES PERCENT AUTO 11 % (21-46); MONOCYTES ABSOLUTE AUTO 0.47 K/mm3 (0.16-1.47); MONOCYTES PERCENT AUTO 5 % (4-13); Mean Corpuscular HGB 31.6 pg (26.0-34.0); Mean Corpuscular HGB Conc 32.6 g/dL (31.5-36.5); Mean Platelet Volume 10.2 fL (9.1-12.4); NEUTROPHILS ABSOLUTE AUTO 8.46 K/mm3 (1.96-9.15); NEUTROPHILS PERCENT AUTO 83 % (41-73); NRBC ABSOLUTE 0.06 K/mm3 (0.00-0.02); NRBC Auto 0.6 /100 WBC (0.0-0.2); Platelet Count 135 K/mm3 (150-400); RDW Coefficient Variation 23.4 % (11.7-14.2); RDW Standard Deviation 80.2 fL (35.1-46.3); Red Blood Cell Count 3.01 M/mm3 (3.80-5.20); White Blood Cell Count 10.18 K/mm3 (4.00-11.30)
[2020-06-13 05:53] LABS: Mean Corpuscular Volume 97 fL (80-100)
[2020-06-13 06:03] LABS: International Normalized Ratio 3.36; Prothrombin Time Results 33.6 Sec (9.7-11.5)
[2020-06-13 06:10] LABS: Albumin, Blood 2.1 g/dL (3.4-5.0); Albumin/Globulin Ratio 0.6 (0.8-1.8); Bun/Creatinine Ratio 6.7 (12.0-20.0); Calcium, Blood 7.2 mg/dL (8.5-10.1); Creatinine, Blood 1.35 mg/dL (0.40-1.00); Globulin, Blood 3.8 g/dL (2.2-4.0); Magnesium, Blood 2.3 mg/dL (1.6-2.4); Potassium, Blood 3.5 mmol/L (3.5-5.5); Total Protein, Blood 5.9 g/dL (6.4-8.2)
--- NOTE | 2020-06-13 06:30 | NUR ---
END OF SHIFT SUMMARY PT CONT TO BE VERY SOMNOLENT BUT REACTS TO PAINFUL STIMULI, ORAL CARE, AND REPOSITIONING WITH MOANS AND WITHDRAWING. PT DID NOT FOLLOW DIRECTIONS AND HEAD NODS TO ANSWER SOME QUESTIONS. CIWA 9-11, PRN ATIVAN GIVEN ONCE. MAX TEMP 99.2. O2 SAT >90% ON RA. HR 80-130. SBP 110-140. AFTER SECOND UNIT OF PRBC, HGB 9.3. 400ML OF DARK YELLOW URINE OUTPUT THIS SHIFT. JO PATENT AND DRAINING TO GRAVITY. PROTONIX GTT INFUSING. WILL REPORT TO AM RN WHEN AVAILABLE.
--- NOTE | 2020-06-13 07:30 | NUR ---
SHIFT SUMMARY: REPORT RECEIVED FROM ROSA Kwon RN. ASSUMED CARE OF THIS PT AT APPROX 0700. ON ASSESSMENT, THE PT IS SLEEPING SOUNDLY. SHE GRIMACES & GROANS W/ PAINFUL STIMULUS BUT IS NOT OPENING HER EYES. ALL EXTREMITIES WITHDRAW FROM PAIN. LS ARE DIM IN BASES, PT ON RA W/ O2 SATS > 92%. MONITOR SHOWS SR-ST W/ HR 80-110s, BP STABLE. NPO, BT HYPOACTIVE. JO PATENT/ DRAINING. SKIN OVERALL JAUNDICED, INTACT. Q2H REPOSITIONING. PROTONIX DRIP INFUSING PER EMAR. WILL CONTINUE TO MONITOR & UPDATE NEEDED.
--- NOTE | 2020-06-13 11:00 | NUR ---
DR SEVILLA: PROVIDER AT BEDSIDE TO EVAL PT. HE HAS DISCUSSED THE PT's POOR PROGNOSIS W/ THIS RN. CONTINUE SUPPORTIVE CARE.
[2020-06-13 12:03] LABS: Hematocrit 28.7 % (33.0-51.0); Hemoglobin 9.6 g/dL (11.5-16.0)
--- NOTE | 2020-06-13 12:40 | NUR ---
CARE COORDINATION REFERRAL - ADMIT:06/11/20 DISCHARGE: DX: METABOLIC ENCEPHALOPATHY, ACUTE LIVER FAILURE CC: [facility]ILCOX ADMIT: 04/18/20 DISCHARGE: 04/21/20 DX: COVID, KETOACIDOSIS DUE TO PERSISTENT VOMITING MARTINA CALL: RESIDENCE: HOME CAREGIVER: ODALIS ARRINGTON, SPOUSE / PARTNER, DX: ALCOHOL INDUCED PANCREATITIS, ALCOHOLISM, COVID, ALCOHOLIC HEPATITIS DME: NONE CCM: NONE HOME HEALTH: SUMMARY: 1: HEMATEMESIS, UPPER GI BLEED A/P: ONE EPISODE OF BLOODY EMESIS. GIVEN KNOWN HX OF ESOPHAGITIS AND ALCOHOL USE PT COULD HAVE BLEEDING FROM EROSIONS VS VARICES. ADMISSION HG 8.7, WITH HG ONE MONTH PRIOR BEING 10. GASTROENTEROLOGY CONSULTED FROM ED. PT NPO IV OCTREOTIDE AND IV PROTONIX. H/H Q6H, WILL TRANSFUSE IF SIGNS OF ONGOING BLEEDING, UNSTABLE VITAL SIGNS OR HG <7. TYPE AND SCREEN, CONSENT FOR BLOOD PRODUCTS. MONITOR WITH TELEMETRY IV ROCEPHIN FOR SBP PROPHYLAXIS, WELL COVERAGE OF UTI. 2: ACUTE LIVER FAILURE ON CHRONIC ALCOHOLIC CIRRHOSIS WITH ASCITES A/P: PT WITH SIGNIFICANT INCREASE IN AST/ALT FROM PRIOR LABS, ALONG WITH MARKED ELEVATIONS IN ALK PHOS, BILIRUBIN AND INR. MELD OF 36. SUSPECT ACUTE INSULT IS POOR PERFUSION FROM GI BLEED V. INFECTION V. INCREASED ALCOHOL INTAKE, WITH POSSIBLE ACETOMINOPHEN INTAKE. UDS NEGATIVE FOR BENZOS. CT ABDOMEN NOTABLE FOR SIGNS OF CIRRHOSIS WITH ESOPHAGEAL THICKENING. LOW SUSPICION FOR SBP AT THIS TIME, GIVEN NO LEUKOCYTOSIS OR FEVER. ONLY MILD-MODERATE ASCITES AT THIS TIME IN PELVIS, UNLIKELY TO UNDERGO PARACENTESIS AT THIS TIME. ACETOMINOPHEN LEVEL REPEAT CMP, PROTIME IN AM 3: ALCOHOL USE DISORDER, SEVERE, WITH WITHDRAWAL. A/P: PT WITH ACTIVE SIGNS OF WITHDRAWAL ON ADMISSION, NO PREVIOUS HX OF WITHDRAWAL. IV THIAMINE QDAY. MONITOR WITH CIWA WITH SYMPTOM TRIGGERED IV LORAZEPAM 2-4 MG IF SIGNIFICANT AGITATION, NOT CONTROLLED WITH BENZODIAZEPIENE CAN ADD ON PRECEDEX ENCOURAGE CESSATION, WILL CONTINUE TO DISCUS FURTHER WHEN PT MENTATION IMPROVES 4: LACTIC ACIDEMIA A/P: LACTIC ACID 8.8 ON ADMISSION, DECREASED TO 7.1 ON REPEAT. PREVIOUS LEVELS IN APRIL 01 AND . SUSPECT CHRONIC LACTATE ELEVATION DUE TO POOR LIVER FUNCTION, WILL NOT REPEAT Q2, EXPECT PERSISTANT SEVERE ELEVATIONS. WILL GET LACTATE QDAY IN AM, IF SUDDEN INCREASE WILL CONSIDER REPEATING ABDOMINAL IMAGING. 5: HYPONATREMIA A/P: LIKELY DUE TO ACUTE LIVER FAILURE. 1L NS GIVEN IN ED. WILL ADD ON MIVF WITH 1/2 NS AND REPEAT CMP IN AM. 6: ACUTE ENCEPHALOPATHY A/P: SUSPECT MULTIFACTORIAL 2/2 TO ALCOHOL WITHDRAWAL, ACUTE LIVER FAILURE, HYPONATREMIA AND POSSIBLE INFECTION. AMMONIA LEVEL NORMAL. CT HEAD NORMAL. TREAT POTENTIAL ETIOLOGIES NOTED ABOVE. 7: ACUTE KIDNEY FAILURE A/P: SERUM CR INCREASED TO 2.19, GFR 26, INCREASED FROM PREVIOUS SCR 0.3, GFR 60. UNCLEAR IF POOR PERFUSION 2/2 TO GI BLEED OR ASCITES, OR FROM UTI, OR HEPATORENAL SYDROME THOUGH BP WNL. IV BOLUS GIVEN IN ED, WILL CONTINUE MIVF OVERNIGHT. WILL AVOID AGGRESSIVE HYDRATION GIVEN PT LOW ALBUMIN, AND ASCITES TO AVOID THIRD SPACING. REPEAT CMP IN AM. URNA, URCR PENDING. 8: MACROCYTIC ANEMIA A/P: HG/HCT 8.7/26.2 ON ADMISSION, PREVIOUSLY LABS WITH BASELINE AROUND 03/18. SUSPECT CHRONIC ANEMIA 2/2 TO LIVER DISEASE, BUT WITH ACUTE DECREASE DUE TO GI BLEED. MONITORING ABOVE. IV BANANA BAG GIVEN. 9: UTI (URINARY TRACT INFECTION) A/P: PATIENT HAS A HX OF PYELONEPHRITIS. U/A ON ADMISSION WITH NITRATES, LEUKOCYTOES AND BACTERIA. IV ROCEPHIN URINE CX AND BLOOD CX PENDING. 10: HYPOALBUMINEMIA A/P: CHRONIC, DUE TO ALCOHOL USE DISORDER, POOR NUTRITION AND LIVER DISEASE. 1.5 ON ADMISSION, SIMILAR TO PREVIOUS LABS. PT MAY NEED IV ALBUMIN IF WORSENING EDEMA/ASCITES. REPEAT CMP IN AM. 11: LAB TEST POSITIVE FOR DETECTION OF COVID-19 VIRUS A/P: PT HAS A HX OF COVID INFECTION APPROX. 1 MONTH PRIOR TO THIS ADMISSION. REPEAT COVID SWAB THIS ADMISSION TO ENSURE NO ONGOING VIRAL INFECTION, AND TO EVALUATE NEED FOR HEALTHCARE PPE IF PROCEDURES INDICATED. 06/13/20- PER CHART REVIEW WITH DR. SINGH, PT IS ACUTE LIVER FAILURE, ALCOHOLIC LIVER AND AT THIS POINT ON SUPPORTIVE CARE. HAS SPOKEN WITH BOYFRIEND AND LET HIM KNOW THERE IS A CHANCE THAT SHE MAY NOT MAKE IT THROUGH THIS. HER LIVER FUNCTION IS VERY POOR. NO ETA FOR D/C AT THIS TIME, THIS WILL DEPENDING UPON IF PT IS ABLE TO RECOVER FROM THIS AND THE OUTCOME AT THIS POINT IS VERY BLEAK -[place]
[2020-06-13 18:05] LABS: Hematocrit 29.5 % (33.0-51.0); Hemoglobin 9.8 g/dL (11.5-16.0)
--- NOTE | 2020-06-13 18:44 | NUR ---
SHIFT SUMMARY: NO ACUTE CHANGES SINCE PRIOR UPDATES. PT REMAINS SOMNOLENT & RESPONSIVE ONLY TO PAINFUL STIMULUS. EYES OPEN TO STIMULUS x1 THIS SHIFT. ON RA W/ O2 SATS > 92%. MONITOR SHOWS SR W/ HR 80s, BP STABLE. NPO R/T SOMNOLENCE, PT HAS HAD UNFORMED, BROWN BMs x2 THIS SHIFT. JO PATENT/ DRAINING DARK YELLOW URINE, OUTPUT IMPROVED THIS SHIFT. SKIN OVERALL JAUNDICED, INTACT. Q2H REPOSITIONING TO MAINTAIN SKIN INTEGRITY. WILL CONTINUE TO MONITOR & REPORT OFF TO ONCOMING RN.
--- NOTE | 2020-06-13 21:39 | NUR ---
ASSUMED CARE AT 1900 PT LAYING IN BED NOT RESPONDING TO VERBAL STIMULI. PT RESPONDS TO PAINFUL STIMULI AND REPOSITIONING WITH MOANS/GROANS; PT VERY STIFF TO MOVE; SWALLOW AND GAG REFLEX PRESENT; PLANTAR REFLEX PRESENT; PUPILS REACTIVE. AFIBRILE. O2 SAT >90% ON RA. HR 90-100. SBP 90-115. TRACE DEPENDENT EDEMA TO ALL EXTREMITIES. MODERATE ABD DISTENTION WITH HYPOACTIVE BOWEL TONES. JO CATH PATENT AND DRAINING TO GRAVITY CLEAR TEA COLORED URINE. PT EYES AND OVERALL SKIN JAUNDICE IN COLOR. PROTONIX AND D5 1/2 NS WITH POTASSIUM INFUSING. SEE SHIFT ASSESSMENT FOR FULL ASSESSMENT.
[2020-06-14 04:25] LABS: BASOPHILS ABSOLUTE AUTO 0.02 K/mm3 (0.00-0.23); BASOPHILS PERCENT AUTO 0 % (0-2); EOSINOPHILS PERCENT AUTO 1 % (0-6); Hematocrit 30.4 % (33.0-51.0); Hemoglobin 10.1 g/dL (11.5-16.0); IMMATURE GRAN ABSOLUTE AUTO 0.05 K/mm3 (0.00-0.10); IMMATURE GRAN PERCENT AUTO 0 % (0-1); LYMPHOCYTES ABSOLUTE AUTO 1.15 K/mm3 (0.84-5.20); LYMPHOCYTES PERCENT AUTO 10 % (21-46); MONOCYTES ABSOLUTE AUTO 0.73 K/mm3 (0.16-1.47); MONOCYTES PERCENT AUTO 7 % (4-13); Mean Corpuscular HGB Conc 33.2 g/dL (31.5-36.5); Mean Corpuscular Volume 96 fL (80-100); Mean Platelet Volume 10.9 fL (9.1-12.4); NEUTROPHILS ABSOLUTE AUTO 9.26 K/mm3 (1.96-9.15); NEUTROPHILS PERCENT AUTO 82 % (41-73); Platelet Count 117 K/mm3 (150-400); RDW Coefficient Variation 23.8 % (11.7-14.2); Red Blood Cell Count 3.16 M/mm3 (3.80-5.20); White Blood Cell Count 11.31 K/mm3 (4.00-11.30)
[2020-06-14 04:37] LABS: International Normalized Ratio 2.34; Prothrombin Time Results 23.9 Sec (9.7-11.5)
[2020-06-14 04:42] LABS: Alanine Aminotransfer (ALT/SGP 62 U/L (12-78); Albumin, Blood 1.8 g/dL (3.4-5.0); Albumin/Globulin Ratio 0.5 (0.8-1.8); Alk Phos 212 U/L (50-136); Anion Gap 8 mmol/L (6-16); Aspartate Aminotrans (AST/SGOT 150 U/L (12-37); Bilirubin, Total 15.4 mg/dL (0.1-1.0); Blood Urea Nitrogen 7 mg/dL (8-24); Bun/Creatinine Ratio 8.8 (12.0-20.0); CO2, Blood 24 mmol/L (21-32); Calcium, Blood 7.7 mg/dL (8.5-10.1); Chloride, Blood 101 mmol/L (98-108); Globulin, Blood 3.7 g/dL (2.2-4.0); Glomerular Filtration Rate >60 (60-); Glucose, Blood 158 mg/dL (70-99); Potassium, Blood 3.6 mmol/L (3.5-5.5); Sodium, Blood 133 mmol/L (136-145); Total Protein, Blood 5.5 g/dL (6.4-8.2)
--- NOTE | 2020-06-14 05:38 | NUR ---
END OF SHIFT SUMMARY PT CONT TO BE VERY SOMNULANT AND NOT RESPONSIVE TO VERBAL STIMULI; PT IS RESPONSIVE TO PAINFUL STIMULI LIKE REPOSITIONING AND ORAL CARE WITH MOANS; PLANTAR REFLEX PRESENT; PUPILS REACTIVE. AFIBRILE. O2 SAT >95% ON RA. HR 90-115. SBP 100-120. TRACE DEPENDENT EDEMA TO EXTREMITIES. ABD MODERATLY FIRM WITH HYPOACTIVE BOWEL TONES. ONE SMALL BM THIS SHIFT. JO IN PLACE AND DRAINING TO GRAVITY; 1050ML OF TEA COLORED URINE OUT THIS SHIFT. EYES AND SKIN JAUNDICE THROUGHOUT. PROTONIX AND D5 1/2NS WITH POTASSIUM INFUSING. WILL REPORT TO AM RN WHEN AVAILABLE.
--- NOTE | 2020-06-14 07:30 | NUR ---
ASSUMED CARE: REPORT RECEIVED FROM ROSA Kwon RN. ASSUMED CARE OF THIS PT AT APPROX 0700. ON ASSESSMENT, THE PT IS RESTING SOUNDLY. SHE MOANS/ GROANS W/ ANY KIND OF STIMULUS & WITHDRAWS ALL EXTREMITIES FROM PAIN. EYES NOT OPENING TO PAINFUL STIMULUS, SLIGHT UPWARD GAZE IS IMPROVED & NOW MORE MIDLINE SINCE YESTERDAY's AM ASSESSMENT. LS ARE DIM IN BASES, PT ON RA W/ O2 SATS > 95%. MONITOR SHOWS ST W/ HR 100s, BP STABLE. PT NPO R/T SOMNOLENCE. JO PATENT/ DRAINING DARK YELLOW, TEA-COLORED URINE. SKIN OVERALL JAUNDICED BUT INTACT. PROTONIX DRIP INFUSING PER EMAR. WILL CONTINUE TO MONITOR & UPDATE NEEDED.
--- NOTE | 2020-06-14 09:31 | NUR ---
DR MORELAND: PROVIDER AT BEDSIDE TO EVAL PT. HE WOULD LIKE AN UPDATED AMMONIA LEVEL TO BE DRAWN THIS AM. NO OTHER ORDERS/ CHANGES AT THIS TIME.
--- NOTE | 2020-06-14 10:58 | NUR ---
DR SEVILLA: PROVIDER AT BEDSIDE TO DANIELLE PT. HE HAS ORDERED A LACTULOSE ENEMA R/T AMMONIA RESULT OF 110. THIS RN ASKS IF HE WOULD LIKE TO SPEAK W/ PT's FAMILY, NOTIFIED HIM THAT HER MOTHER, MARTÍNEZ, WOULD BE IN AT APPROX 1400 DURING VISITING HRS. HE STS HE WILL BE IN CLINIC AT THAT TIME & REQUESTS MARTÍNEZ's PHONE NUMBER TO CALL & PROVIDE HER W/ AN UPDATE.
--- NOTE | 2020-06-14 17:01 | NUR ---
SUMMARY: 06/14/20- per chart review with Dr. Akins, pt has alcoholic liver failure with severe alcoholic hepatitis, severe hepatice steatosis and jaundice. Pt is sedated and intubated. -lois
--- NOTE | 2020-06-14 17:29 | NUR ---
I met with Herminia's mom, Ying, at bedside. She told me stories about Faby and expressed enormous love and concern. "I know her liver is gone" she states, but she does not appear to know how this fact plays out. Ying will benefit from a careful, compassionate explaination of Herminia's prognosis. Ying blames Herminia's finace for her continued drinking "after the last time." I provided theraputic listening, emotional affirmation and prayer to good effect. I will remain available.
--- NOTE | 2020-06-14 19:33 | NUR ---
SHIFT SUMMARY: NO ACUTE CHANGES SINCE PRIOR UPDATES. THE PT's MOTHER, MARTÍNEZ, HAS BEEN AT BEDSIDE THIS AFTERNOON & IS SUPPORTIVE IN CARE. LS DIM IN BASES, PT ON RA W/ O2 SATS > 95%. MONITOR SHOWS ST W/ HR 110s, BP STABLE. DOBHOFF PLACED AT APPROX 1745 BY EZIO Kwon, PRODUCT MARKETING COORDINATOR - AWAITING CXR TO BE READ PRIOR TO INITIATING TUBE FEEDS ORDERED BY DIETARY. RECTAL TUBE PLACED THIS AFTERNOON FOR ENEMA ADMIN & LIQUID STLS R/T ENEMA. DR SEVILLA HAS CLARIFIED W/ THIS RN THAT HE DOES NOT WANT LACTULOSE TO BE GIVEN PER TUBE, FOR HIGH RISK OF INFECTION/ COMPLICATIONS IF LACTULOSE ASPIRATED BY THE PT. JO PATENT/ DRAINING DARK YELLOW, TEA COLORED URINE. SKIN CONDITION OVERALL JAUNDICED, INTACT. REPORT HAS BEEN GIVEN TO ZOZY Kwon RN TO ASSUME CARE.
--- NOTE | 2020-06-14 21:33 | NUR ---
REPORT RECV'D FROM LEXIE UREÑA. ASSUMED CARE OF PT @ 1900. PT SOMNOLENT UPON ASSESSMENT. SKIN JAUNDICED. WILL MOAN WITH STIMULATION, OTHERWISE NO VERBAL RESPONSE. WITHDRAWS FROM NOXIOUS STIMULI. EYES OPEN TO STIMULI, MIDLINE GAZE. TF ON SB DURING INITIAL ASSESSMENT, AWAITING DOBHOFF PLACEMENT CONFIRMATION. PER RADIOLOGIST NOTE, DOBHOFF ADVANCED 6CM WITH STYLET STILL IN PLACE FROM 55 TO 61, TF INFUSION INITIATED AT 15ML/HR @ 2130. RECTAL TUBE IN PLACE DRAINING BROWN, LOOSE STOOL. JO CATH PATENT, DRAINING YELLOW URINE. PROTONIX GTT INFUSING. WILL CONTINUE TO MONITOR.
[2020-06-15 03:21] LABS: BASOPHILS ABSOLUTE AUTO 0.04 K/mm3 (0.00-0.23); BASOPHILS PERCENT AUTO 0 % (0-2); EOSINOPHILS PERCENT AUTO 1 % (0-6); Hematocrit 30.5 % (33.0-51.0); Hemoglobin 10.2 g/dL (11.5-16.0); IMMATURE GRAN ABSOLUTE AUTO 0.08 K/mm3 (0.00-0.10); IMMATURE GRAN PERCENT AUTO 1 % (0-1); LYMPHOCYTES ABSOLUTE AUTO 1.18 K/mm3 (0.84-5.20); LYMPHOCYTES PERCENT AUTO 11 % (21-46); MONOCYTES ABSOLUTE AUTO 1.18 K/mm3 (0.16-1.47); MONOCYTES PERCENT AUTO 11 % (4-13); Mean Corpuscular HGB 32.2 pg (26.0-34.0); Mean Corpuscular HGB Conc 33.4 g/dL (31.5-36.5); Mean Corpuscular Volume 96 fL (80-100); Mean Platelet Volume 10.6 fL (9.1-12.4); NEUTROPHILS ABSOLUTE AUTO 8.58 K/mm3 (1.96-9.15); NEUTROPHILS PERCENT AUTO 77 % (41-73); NRBC ABSOLUTE 0.02 K/mm3 (0.00-0.02); NRBC Auto 0.2 /100 WBC (0.0-0.2); Platelet Count 109 K/mm3 (150-400); RDW Coefficient Variation 24.8 % (11.7-14.2); RDW Standard Deviation 83.5 fL (35.1-46.3); Red Blood Cell Count 3.17 M/mm3 (3.80-5.20); White Blood Cell Count 11.16 K/mm3 (4.00-11.30)
[2020-06-15 03:33] LABS: International Normalized Ratio 2.12; Prothrombin Time Results 21.7 Sec (9.7-11.5)
[2020-06-15 03:36] LABS: Alanine Aminotransfer (ALT/SGP 56 U/L (12-78); Albumin, Blood 1.7 g/dL (3.4-5.0); Albumin/Globulin Ratio 0.4 (0.8-1.8); Alk Phos 214 U/L (50-136); Anion Gap 9 mmol/L (6-16); Aspartate Aminotrans (AST/SGOT 117 U/L (12-37); Bilirubin, Total 17.7 mg/dL (0.1-1.0); Blood Urea Nitrogen 6 mg/dL (8-24); Bun/Creatinine Ratio 10.2 (12.0-20.0); CO2, Blood 22 mmol/L (21-32); Calcium, Blood 7.7 mg/dL (8.5-10.1); Chloride, Blood 107 mmol/L (98-108); Creatinine, Blood 0.59 mg/dL (0.40-1.00); Globulin, Blood 3.8 g/dL (2.2-4.0); Glomerular Filtration Rate >60 (60-); Glucose, Blood 125 mg/dL (70-99); Magnesium, Blood 2.6 mg/dL (1.6-2.4); Phosphorus, Blood 1.4 mg/dL (2.5-4.9); Potassium, Blood 3.6 mmol/L (3.5-5.5); Sodium, Blood 138 mmol/L (136-145); Total Protein, Blood 5.5 g/dL (6.4-8.2)
--- NOTE | 2020-06-15 06:39 | NUR ---
SHIFT SUMMARY PT REMAINS SOMNOLENT. NO SIGNIFICANT CHANGES IN PT CONDITION. MOANS INTERMITTENTLY, CONTINUES TO HAVE NO VERBAL RESPONSE. PROTONIX GTT CONTINUES. VSS. RECTAL TUBE IN PLACE, DRAINING LOOSE STOOL. JO CATH DRAINING DARK YELLOW/ ASHU URINE. WILL CONTINUE TO MONITOR. REPORT TO ONCOMING NURSE.
--- NOTE | 2020-06-15 09:32 | NUR ---
PT MOANS AND GROANS WITH ANY TOUCH. DOES NOT OPEN EYE'S. PUPILS EQUAL AND REACTIVE. WITH NAILBED PRESSURE PT CURLS HANDS AWAY FROM BODY. WITHDRAWS FEET FROM NOXIOUS STIMULUS. DR. MARY IN TO SEE PT AND MADE AWARE OF PAIN RESPONSE. GOING TO ADD LACTULOSE PER DOBHOFF AMMONIA IS RISING.
--- NOTE | 2020-06-15 10:44 | NUR ---
PT'S HR IS TRENDING IN 130'S. TELEMETRY HAS TREMULOUS WAVEFORM AND PT CONSTANTLY MOANING. GAVE ATIVAN FOR CIWA OF 9.
--- NOTE | 2020-06-15 18:41 | NUR ---
SUMMARY PT HAS BEEN UNRESPONSIVE. THE ONLY RESPONSE IS TO NAILBED PRESSURE OR NOXIOUS STIMULUS. PT WILL ROTATE HANDS EXTERNALLY. AT ONE POINT TODAY HER HR ELEVATED TO 130'S, THERE WAS A TREMOR IN EKG LEADS, AND PT WAS CONSTANTLY MOANING. GAVE ATIVAN ONCE AND PT IS MORE COMFORTABLE NOW. LACTULOSE PER DOBHOFF WAS ADDED TODAY DUE TO AMMONIA CLIMBING DESPITE LACTULOSE ENEMAS. NO OTHER CHANGES TODAY.
--- NOTE | 2020-06-15 20:58 | NUR ---
SHIFT ASSESSMENT ASSUMED CARE OF PT @ 1900, REPORT RECV'D FROM AILEEN UREÑA. PT SOMNOLENT UPON ASSESSMENT, MOANS WITH NOXIOUS STIMULI, DOES NOT OPEN EYES. SKIN JAUNDICED T/O. ST ON THE REINFORCEMENT MAKER. CONTINOUS PRTONIX GTT INFUSING. TF INFUSING @ GOAL RATE. LACTULOSE PER ORDERS THROUGH DOBHOFF AND RECTAL TUBE. RECTAL TUBE DRAINING BROWN, LOOSE STOOL. JO CATH PATENT, DRAINING ASHU URINE. WILL CONTINUE TO MONITOR.
[2020-06-16 04:05] LABS: BASOPHILS ABSOLUTE AUTO 0.08 K/mm3 (0.00-0.23); BASOPHILS PERCENT AUTO 1 % (0-2); EOSINOPHILS PERCENT AUTO 2 % (0-6); Hematocrit 32.2 % (33.0-51.0); Hemoglobin 10.6 g/dL (11.5-16.0); IMMATURE GRAN ABSOLUTE AUTO 0.16 K/mm3 (0.00-0.10); IMMATURE GRAN PERCENT AUTO 1 % (0-1); LYMPHOCYTES ABSOLUTE AUTO 2.08 K/mm3 (0.84-5.20); LYMPHOCYTES PERCENT AUTO 18 % (21-46); MONOCYTES ABSOLUTE AUTO 2.05 K/mm3 (0.16-1.47); MONOCYTES PERCENT AUTO 18 % (4-13); Mean Corpuscular HGB 32.2 pg (26.0-34.0); Mean Corpuscular HGB Conc 32.9 g/dL (31.5-36.5); Mean Corpuscular Volume 98 fL (80-100); Mean Platelet Volume 11.2 fL (9.1-12.4); NEUTROPHILS ABSOLUTE AUTO 7.04 K/mm3 (1.96-9.15); NEUTROPHILS PERCENT AUTO 61 % (41-73); Platelet Count 105 K/mm3 (150-400); RDW Coefficient Variation 25.3 % (11.7-14.2); Red Blood Cell Count 3.29 M/mm3 (3.80-5.20); White Blood Cell Count 11.61 K/mm3 (4.00-11.30)
[2020-06-16 04:16] LABS: International Normalized Ratio 2.23; Prothrombin Time Results 22.8 Sec (9.7-11.5)
[2020-06-16 04:28] LABS: Alanine Aminotransfer (ALT/SGP 55 U/L (12-78); Albumin, Blood 1.7 g/dL (3.4-5.0); Albumin/Globulin Ratio 0.4 (0.8-1.8); Alk Phos 223 U/L (50-136); Anion Gap 9 mmol/L (6-16); Aspartate Aminotrans (AST/SGOT 99 U/L (12-37); Bilirubin, Total 19.4 mg/dL (0.1-1.0); Blood Urea Nitrogen 8 mg/dL (8-24); Bun/Creatinine Ratio 14.5 (12.0-20.0); CO2, Blood 22 mmol/L (21-32); Chloride, Blood 110 mmol/L (98-108); Creatinine, Blood 0.55 mg/dL (0.40-1.00); Glomerular Filtration Rate >60 (60-); Glucose, Blood 130 mg/dL (70-99); Magnesium, Blood 2.6 mg/dL (1.6-2.4); Phosphorus, Blood 1.7 mg/dL (2.5-4.9); Potassium, Blood 3.3 mmol/L (3.5-5.5); Sodium, Blood 141 mmol/L (136-145); Total Protein, Blood 5.7 g/dL (6.4-8.2)
--- NOTE | 2020-06-16 06:27 | NUR ---
SHIFT SUMMARY PT REMAINS SOMNOLENT. CIWA <6. WILL INTERMITTENTLY OPEN EYES AND MOAN TO NOXIOUS STIMULI. ST ON THE WORKERS COMPENSATION CLAIMS SUPERVISOR. BP STABLE. SPO2 >95% ON RA. TF CONTINUES @ GOAL RATE. JO CATH DRAINING DARK ASHU URINE. RECTAL TUBE DRAINING LIGHT BROWN, THIN STOOL. NO SIGNIFICANT CHANGES IN PT CONDITION DURING THE NIGHT. WILL CONTINUE TO MONITOR. REPORT TO ONCOMING NURSE.
--- NOTE | 2020-06-16 08:50 | NUR ---
ASSUMED CARE RECEIVED REPORT FROM ADELITA PRECIADO. PT IS SOMNOLENT, NOT AWAKENING TO VERBAL STIMULI, AND RESPONDS MINIMALLY TO NOXIOUS STIMULI. MOANING, AND INTERMITTENTLY YAWNING. SHE IS JAUNDICED. CURRENT GTTPs: PROTONIX AT 10 ML/HR, AND KPHOS AT 125 ML/HR. JO CATHETER IS PATENT AND DRAINING VERY DARK, TEA COLORED URINE. RECTAL TUBE IN PLACE, NOT MUCH OUTPUT SEEN AT THE MOMENT. DOBHOF IN RIGHT NARE, PIVOT 1.5 INFUSING THROUGH IT AT GOAL RATE OF 15 ML/HR WITH Q4H 30ML FLUSHES. STABLE VITALS, SINUS TO ST 90-110, MAP > 65, AFEBRILE, SPO2 98% ON ROOM AIR. BED LFOW AND LOCKED.
--- NOTE | 2020-06-16 14:56 | NUR ---
UPDATE PT REMAINS STUPOROUS T/O DAY, ONLY RESPONDING MINIMALLY TO PAINFUL STIMULI (ATTEMPTED A FEW SPOTS, THE ONE THAT ELICITED A RESPONSE WAS SQUEEZING THE NAILBED). PT BREATHING 20-24/MIN, MAINTAINING SPO2 IN THE 98%+ RANGE. SHE IS IN SINUS TACH, RATE [address] COSBY AND DR. MANCIA ARE AWARE, ACETYLCESTINE IV ORDERED, INFUSING NOW ALONG WITH PREDNISOLONE AND ZINC GIVEN VIA DOBHOFF. DR. COSBY STATED THAT HE WOULD PUT IN FOR A HEAD CT SCAN WITHOUT CONTRAST. WILL CONTINUE TO MONITOR, NO SIGNS OF BLEEDING VIA RECTAL TUBE, RECTUM, OR JO. BP STABLE, MAP > 65.
--- NOTE | 2020-06-16 17:17 | NUR ---
I met with pt's SO, Rad. He was quite timid and admitted that he knows "It's bad." He tells me that "if she survives this, I will quit drinking too." He seems loving towards Herminia and responded well to gentle high school guidance counselor and emotional affirmation. I will remain available.
--- NOTE | 2020-06-16 18:31 | NUR ---
SHIFT SUMMARY PT CONTINUES TO BE STUPOROUS, ONLY RESPONDING (MINIMALLY) TO A PERIPHERAL PAIN STIMULUS (NAILBED SQUEEZE). SLEEPING T/O DAY, SNORING AND MOANING, BREATHING LOW 20s/MINUTE. STARTED ON ACETYLCYSTEINE IV, AND STEROIDS + ZINC PT. LACTULOSE CONTINUES TO BE GIVEN VIA DOBHOFF, AND RECTAL TUBE ENEMA. PT HAD 1200 ML OUT OF RECTAL TUBE FOR ME, 600ML OF WHICH IS FROM THE LACTULOSE. SHE ALSO HAD A HEAD CT WITHOUT CONTRAST, UNSURE RESULTS OF SCAN CURRENTLY. NO MAJOR CHANGES TO ASSESSMENT T/O SHIFT. URINE IN JO IS TEA COLORED, BILLIOUS, AND OILY. STOOL IN RECTAL TUBE, ALTHOUGH LIDQUIDY, IS SHOWING SIGNS OF STEATORRHEA. AT BEDSIDE DURING VISITING HOURS, WAS UPDATED BY ME AT THE BEDSIDE. THIS RN DISCUSSED CONCERNS OF NEURO STATUS TO DR. COSBY WHO THEN REPORTED TO DR. SEVILLA. DR. COSBY INFORMED ME HE WOULD CALL THE MOM. BED LOW AND LOCKED. CALL LIGHT WITHIN REACH. JEVITY 1.2 INFUSING VIA DOBHOFF. SCDs IN PLACE.
--- NOTE | 2020-06-16 22:42 | NUR ---
ASSUMED CARE AT 1900 PT LAYING IN BED NOT RESPONSIVE TO VERBAL STIMULI. PT RESPONDS TO PAINFUL STIMULI IN REGARDS TO MOANING AND PULLING AWAY SLIGHTLY, THIS OCCURES DURING REPOSITIONING MOSTLY. PUPILS REACTIVE, PLANTAR REFLEX PRESENT; OCCATIONALLY YAWNS. O2 SAT >95% ON RA. GAG AND SWALLOW PRESENT. HR 110-115. SBP 105-135. AFIBRILE. TRACE DEPENDENT EDEMA IN ALL EXTREMITIES. TF INFUSING VIA DOBHOFF AT 15ML/HR WITH 30ML WATER FLUSHES Q4HR. RECTAL TUBE AND JO IN PLACE AND DRAINING TO GRAVITY. SCLERA OF BOTH EYES AND SKIN ALL OVER JAUNDICE IN COLOR. THIRD BAG OF ACETADOTE INFUSING. SEE SHIFT ASSESSMENT FOR FULL ASSESSMENT.
[2020-06-17 04:45] LABS: BASOPHILS ABSOLUTE AUTO 0.05 K/mm3 (0.00-0.23); BASOPHILS PERCENT AUTO 1 % (0-2); EOSINOPHILS ABSOLUTE AUTO 0.01 K/mm3 (0.00-0.68); EOSINOPHILS PERCENT AUTO 0 % (0-6); Hematocrit 31.9 % (33.0-51.0); Hemoglobin 10.5 g/dL (11.5-16.0); IMMATURE GRAN ABSOLUTE AUTO 0.65 K/mm3 (0.00-0.10); IMMATURE GRAN PERCENT AUTO 6 % (0-1); LYMPHOCYTES ABSOLUTE AUTO 1.58 K/mm3 (0.84-5.20); LYMPHOCYTES PERCENT AUTO 15 % (21-46); MONOCYTES ABSOLUTE AUTO 2.44 K/mm3 (0.16-1.47); MONOCYTES PERCENT AUTO 23 % (4-13); Mean Corpuscular HGB Conc 32.9 g/dL (31.5-36.5); Mean Corpuscular Volume 97 fL (80-100); Mean Platelet Volume 11.9 fL (9.1-12.4); NEUTROPHILS ABSOLUTE AUTO 5.75 K/mm3 (1.96-9.15); NEUTROPHILS PERCENT AUTO 55 % (41-73); NRBC ABSOLUTE 0.03 K/mm3 (0.00-0.02); NRBC Auto 0.3 /100 WBC (0.0-0.2); Platelet Count 91 K/mm3 (150-400); RDW Coefficient Variation 25.6 % (11.7-14.2); Red Blood Cell Count 3.28 M/mm3 (3.80-5.20); White Blood Cell Count 10.48 K/mm3 (4.00-11.30)
[2020-06-17 04:58] LABS: International Normalized Ratio 2.56
[2020-06-17 05:13] LABS: Alanine Aminotransfer (ALT/SGP 57 U/L (12-78); Albumin, Blood 1.6 g/dL (3.4-5.0); Albumin/Globulin Ratio 0.4 (0.8-1.8); Alk Phos 216 U/L (50-136); Anion Gap 9 mmol/L (6-16); Aspartate Aminotrans (AST/SGOT 89 U/L (12-37); Bilirubin, Total 18.8 mg/dL (0.1-1.0); Blood Urea Nitrogen 9 mg/dL (8-24); Bun/Creatinine Ratio 20.2 (12.0-20.0); CO2, Blood 22 mmol/L (21-32); Calcium, Blood 8.2 mg/dL (8.5-10.1); Chloride, Blood 110 mmol/L (98-108); Creatinine, Blood 0.45 mg/dL (0.40-1.00); Globulin, Blood 4.1 g/dL (2.2-4.0); Glomerular Filtration Rate >60 (60-); Glucose, Blood 235 mg/dL (70-99); Magnesium, Blood 2.5 mg/dL (1.6-2.4); Phosphorus, Blood 1.6 mg/dL (2.5-4.9); Potassium, Blood 3.3 mmol/L (3.5-5.5); Sodium, Blood 141 mmol/L (136-145); Total Protein, Blood 5.7 g/dL (6.4-8.2)
--- NOTE | 2020-06-17 06:10 | NUR ---
END OF SHIFT SUMMARY PT CONT TO BE SOMNULANT AND NOT RESPONSIVE TO VERBAL STIMULI. PT DOES RESPOND TO PAINFUL STIMULI WITH MOANING. NO NEURO CHANGES. AFIBRILE. O2 SAT >95% ON RA. HR 100-120. SBP 120-150. PIVIOT INFUSING VIA DOBHOFF AT 15ML/HR (GOAL) WITH 30ML WATER FLUSHES Q4HR. RECTAL TUBE IN PLACE; LACTULOSE GIVEN THROUGH RECTAL TUBE TWICE; PT DID NOT TOLERATE FIRST DOSE WELL AND ONLY HELD FOR 10MIN; SECOND DOSE TOLERATED WELL AND WAS HELD FOR 30MIN. JO IN PLACE AND DRAINING TO GRAVITY THICK DARK YELLOW URINE. ACETADOTE INFUSING. WILL REPORT TO AM RN WHEN AVAILABLE.
--- NOTE | 2020-06-17 07:58 | NUR ---
ASSUMED CARE RECEIVED REPORT FROM ADELITA LEE. PT IS STUPOROUS THIS MORNING, MINIMALLY RESPONDING TO A PERIPHERAL PAIN RESPONSE ONLY - DURING A FINGER NAIL-BED SQUEEZE THE PT WILL MOAN A LITTLE AND GRIMACE, BUT DOES NOT WITHDRAW FROM THE PAIN OR MOVE IN ANY WAY. VITALS STABLE, SINUS TACH- RATE 110-120; MAP > 65, SBP < 160; AFEBRILE; SPO2 97% ON ROOM AIR. RR 22. JO CATHETER PATENT DRAINING DARK, TEA COLORED, BILIOUS URINE. RECTAL TUBE IN PLACE, DRAINING LIQUID LIGHT BROWN STOOL. SCDs IN PLACE. DOBHOFF IN RIGHT NARE, WITH PIVOT 1.5 INFUSING AT GOAL RATE OF 15 ML/HR, WITH 30 ML Q4H FLUSHES. BED LOW AND LOCKED. PT's CPOT = 0 CURRENTLY.
--- NOTE | 2020-06-17 18:20 | NUR ---
SHIFT SUMMARY NO MAJOR CHANGES T/O SHIFT, PT REMAINS STUPOROUS, MINIMALLY RESPONSIVE TO NOXIOUS STIMULI. CONTINUES TO RECEIVE LACTULOSE VIA DOBHOFF, AND RECTAL TUBE WITH ADEQUATE OUTPUT. JO PATENT, DRAINING MINIMAL DARK, TEA COLORED URINE. RECEIVING PIVOT 1.5 INFUSING AT 15 ML/HR (GOAL). KPHOS CURRENTLY INFUSING. BANANA BAG DCd, 10 UNITS OF LANTUS GIVEN ONCE TODAY TO MANAGE HYPERGLYCEMIA, NAC GTTP FINISHED EARLIER TODAY. DR. TAN TALKED WITH PT's MOM ABOUT PROGNOSIS. DISCUSSED CODE STATUS AND STATED THAT SHE WANTS TO WAIT TILL TOMORROW TO TALK ABOUT THAT FURTHER. FULL CODE FOR TIME BEING. PT REMAINS IN ST, RATE 110-120s, BP STABLE (MAP > 65), SPO2 97% ON ROOM AIR. AFEBRILE. CALL LIGHT WITHIN REACH. BED LOW AND LOCKED.
[2020-06-18 04:33] LABS: Hematocrit 30.8 % (33.0-51.0); Hemoglobin 10.2 g/dL (11.5-16.0); Mean Corpuscular HGB 32.8 pg (26.0-34.0); Mean Corpuscular HGB Conc 33.1 g/dL (31.5-36.5); Mean Corpuscular Volume 99 fL (80-100); Mean Platelet Volume 11.7 fL (9.1-12.4); NRBC ABSOLUTE 0.08 K/mm3 (0.00-0.02); NRBC Auto 0.6 /100 WBC (0.0-0.2); Platelet Count 96 K/mm3 (150-400); RDW Coefficient Variation 25.7 % (11.7-14.2); RDW Standard Deviation 89.8 fL (35.1-46.3); Red Blood Cell Count 3.11 M/mm3 (3.80-5.20); White Blood Cell Count 12.91 K/mm3 (4.00-11.30)
[2020-06-18 04:45] LABS: International Normalized Ratio 2.19; Prothrombin Time Results 22.4 Sec (9.7-11.5)
[2020-06-18 04:58] LABS: BAND PERCENT MAN 4 % (0-8); BASOPHILS PERCENT MAN 0 % (0-2); EOSINOPHILS PERCENT MAN 0 % (0-6); LYMPHOCYTES ABSOLUTE MAN 2.32 K/mm3 (0.84-5.20); LYMPHOCYTES PERCENT MAN 18 % (21-46); METAMYELOCYTE ABSOLUTE MAN 0.25 K/mm3 (0.00-0.00); METAMYELOCYTE PERCENT MAN 2 % (0-0); MONOCYTES ABSOLUTE MAN 3.35 K/mm3 (0.16-1.47); MONOCYTES PERCENT MAN 26 % (4-13); MYELOCYTE ABSOLUTE MAN 0.38 K/mm3 (0.00-0.00); MYELOCYTE PERCENT MAN 3 % (0-0); NEUTROPHILS ABSOLUTE MAN 6.58 K/mm3 (1.96-9.15); SEG NEUTROPHILS PERCENT MAN 47 % (41-73); TOTAL CELLS COUNTED 100
[2020-06-18 05:00] LABS: Alanine Aminotransfer (ALT/SGP 58 U/L (12-78); Albumin, Blood 1.6 g/dL (3.4-5.0); Albumin/Globulin Ratio 0.4 (0.8-1.8); Alk Phos 210 U/L (50-136); Anion Gap 8 mmol/L (6-16); Aspartate Aminotrans (AST/SGOT 95 U/L (12-37); Bilirubin, Total 17.4 mg/dL (0.1-1.0); Blood Urea Nitrogen 13 mg/dL (8-24); Bun/Creatinine Ratio 25.2 (12.0-20.0); CO2, Blood 23 mmol/L (21-32); Calcium, Blood 8.2 mg/dL (8.5-10.1); Chloride, Blood 112 mmol/L (98-108); Creatinine, Blood 0.52 mg/dL (0.40-1.00); Glomerular Filtration Rate >60 (60-); Glucose, Blood 171 mg/dL (70-99); Potassium, Blood 3.7 mmol/L (3.5-5.5); Sodium, Blood 143 mmol/L (136-145); Total Protein, Blood 5.6 g/dL (6.4-8.2)
--- NOTE | 2020-06-18 06:47 | NUR ---
SHIFT SUMMARY PT CONTINUES TO BE OBTUNDED T/O SHIFT, MOANS TO PAINFUL/NOXIOUS STIMULI BUT DOES NOT WITHDRAW FROM PAIN. CORNEAL REFLEXES ABSENT, PLANTAR REFLEXES PRESENT. SOME INTERNAL ROTATION NOTED TO UPPER EXTREMETIES. VSS, PT ON ROOM AIR. DOBHOFF IN PLACE INF TF @ 15ml/hr. SKIN IS JAUNDICED AND EDEMATOUS. JO IN PLACE DRAINING ORANGE/ASHU COLORED URINE. RECTAL TUBE IN PLACE WITH LIQUID GREEN TO CLEAR OUTPUT. MORNING LABS SHOWED LOW PHOS, 20mmol KPHOS INFUSING.
--- NOTE | 2020-06-18 07:30 | NUR ---
PT RECEIVED FROM ADELITA DEAN. PT SNORING, DOBBHOFF FEEDING TUBE IN PLACE, IV K+PHOS INFUSING, JO DRAINING ORANGE RETURN,RECTAL TUBE WITH GREEN RETURN. PT WITH SALINE LOCK X 2, LEFT ARM, POWER GLIDE SAMINA. PT DOES NOT RESPOND TO ANY STIMULUS, OCCASIONAL MOAN, SIGH.
--- NOTE | 2020-06-18 12:33 | NUR ---
PT GIVEN LACTULOSE ENEMA, UPON ASSESSMENT PRIOR TO GIVING, PT WITH DOWNWARD GAZE OF EYES, FIXED. RECHECKED 15 MINUTES LATER, EYES MIDLINE & FIXED, UNMOVING WITH HEAD TURNING. PT WITH INWARD RESPONSE BY ARMS TO PAINFUL STIMULI.
--- NOTE | 2020-06-18 14:00 | NUR ---
Been following pt but asked to wait to speak with family. Will discuss prognosis and plan of care after physicin assessement. noel following for support to pt mother
--- NOTE | 2020-06-18 14:52 | NUR ---
PT'S MOM HAS ARRIVED FOR VISIT, ASKING ABOUT ANDRES'S CONDITION AND HER CHANCES OF IMPROVING AT THIS STAGE. DISCUSSED CARE AND IF HER HEART STOPS BEATING WOULD SHE WANT US TO DO CPR, MOM STATES THAT SHE (PT) WOULDN'T WANT THAT, MOM CONTINUES TO STATE, I AM NOT READY TO LET HER GO. WE DID TELL HER THAT PALLIATIVE CARE WOULD BE IN AND DISCUSS SOME OF THESE OPTIONS WITH HER.
--- NOTE | 2020-06-18 16:15 | NUR ---
Called to meet with patients mother she was displaying grief and stress. Pt mother states she is not ready to let go yet. She is hoping with time or alternate treatments she may wake up. Pt mother is next of kin. The patient has never been . She states she was supposed to get and covid hit and had to cancel. She states she started binge drinking more. Mother relayed that she would not want recussitation and life support. We reviewed code status. Mother want to make her a DNR. Advised mother that nurse will have to confirm code status and update physician.
--- NOTE | 2020-06-18 16:25 | NUR ---
HERE TO SEE PATIENT, SPOKE WITH MOM, ANSWERED HER QUESTIONS AND SPOKE TO HER CONCERNS, VERBALIZED THAT ANDRES WOULD NOT WANT CPR OR INTUBATION. DISCUSSED WITH , CALL PLACED TO , ORDER RECEIVED.
--- NOTE | 2020-06-18 18:57 | NUR ---
ANDRES IS STILL UNRESPONSIVE TO STIMULI, SHE DID RESPOND W/ DECEREBATE POSTURING TO NOXIOUS STIMULI WITH HER ARMS. SHE HAD AN EPISODE OF DOWNWARD FIXED GAZE, BUT FOR THE MAJORITY OF THE SHIFT SHE HAD FIXED GAZE FORWARD. PUPILS ARE REACTIVE. SHE MOANS AND SIGHS OCCASIONALLY BUT NOT TO ANY PURPOSE. SHE CONTINUES WITH PIVOT 1.5 TUBE FEEDING AT 15ML WITH 30ML H20 Q4. SHE HAS THE RECTAL TUBE, WHICH WAS JUST CHANGED WITH GREEN/YELLOW LIQUID RETURN. HER HANDS AND FEET REMAIN EDEMATOUS. HER MOTHER WAS HERE AND DID MAKE HER A DNR. SHE IS NOT READY FOR ANY WITHDRAWAL OF CARE AT THIS TIME.
--- NOTE | 2020-06-18 20:00 | NUR ---
ASSUMPTION OF CARE PT CONTINUES TO BE UNRESPONSIVE TO VERBAL AND PAINFUL STIMULI. PT MOANS AT TIMES, BUT NOT IN RESPONSE TO ANY APPARENT PAINFUL/NOXIOUS STIMULI. PT WITH BREIF DOWNWARD GAZE DURING ASSESSMENT, PUPILS REACTIVE TO LIGHT BUT PT DOES NOT TRACK, CORNEAL REFLEXSES ABSENT. PLANTAR REFLEXES PRESENT. O2 SATURATIONS> 90% ON RA, MONITOR SHOWS SINUS RHYTHM WITH HR 100-110, BP STABLE. PT IS MORE JAUNDICED THAN PREVIOUS SHIFT, JO IN PLACE DRAINING ASHU/ORANGE COLORED URINE. RECTAL TUBE IN PLACE WITH LIQUID GREEN OUTPUT. DOBHOFF IN PLACE WITH TF @ GOAL RATE OF 15ml/hr.
[2020-06-19 06:28] LABS: International Normalized Ratio 2.08; Prothrombin Time Results 21.4 Sec (9.7-11.5)
--- NOTE | 2020-06-19 06:51 | NUR ---
SHIFT SUMMARY NO ACUTE CHANGES THIS SHIFT. PT REMAINS UNRESPONSIVE, DOES NOT WITHDRAW TO PAINFUL STIMULI, MOANS AT TIMES. O2 SATURATIONS> 90% ON RA, MONITOR SHOWS SINUS TACH WITH HR 100-120, BP STABLE. DOBHOFF IN PLACE WITH TF @ GOAL RATE. JO IN PLACE DRAINING DARK ORANGE URINE. RECTAL TUBE IN PLACE WITH LIQUID GREEN OUTPUT.
--- NOTE | 2020-06-19 07:30 | NUR ---
PT RECEIVED FROM ADELITA DEAN. SONOROUS RESPIRATIONS, NO MOVEMENT IN EXTREMITIES SPONTANEOUSLY, DOBBHOFF FEEDING CONTINUES, JO WITH ORANGE/ASHU RETURN, RECTAL TUBE WITH GREEN LIQUID RETURN. PT MOANS, SIGHS, CLENCHES JAW WITH ATTEMPTS AT ORAL CARE,SUCTIONING. PT RETURNS WITH INWARD ARMS AT PAINFUL STIMULI, FEET MOVE FROM TOUCH, NO LEG OR ARM MOVEMENT. EYES FIXED STRAIGHT FORWARD, WHEN HEAD TURNED, EYES DEVIATE TO LEFT GAZE FOR ABOUT 90 SECONDS. NO TENSION OR GRIMACE WITH MOVEMENT, ARMS AND HANDS FLOP IF LET GO.
--- NOTE | 2020-06-19 12:53 | NUR ---
1158-PATIENT TO CT 1227-RETURNED TO ROOM PT MOVING HEAD, PT MOVING LEFT ARM, NOT FOLLOWING COMMANDS, LOOKING AROUND, NOT TO LOUD NOISE OR VERBAL STIMULI. PT HAD BOWEL MOVEMENT, TURNED TO CLEAN. PT'S ART LINE DRESSING CHANGED/BLOOD PRESSURE RETURN TO SBP 70'S, LABILE, LEVOPHED ON AND BEING TITRATED, VASOPRESSIN PUT BACK ON, PROPOFOL IS AT 35MCG/KG/MIN, WILL TITRATE WELL.
--- NOTE | 2020-06-19 16:26 | NUR ---
SIGNIFICANT OTHER HAS BEEN HERE FOR A COUPLE OF HOURS, HE IS SITTING QUIETLY BY HER SIDE. HE HASN'T ASKED ANY QUESTIONS, OTHER THAN ABOUT HER AMMONIA LEVEL. HE ALSO BROUGHT IN SOME BOTTLES OF MEDICATIONS THAT ANDRES HAD BEEN TAKING PRIOR TO ADMISSION, THEY WERE MELATONIN 10MG, HYDROXYZINE, AND DIPHENHYDRAMINE. HE STATED THAT HE COMMENTED TO HER THAT SHE WAS GOING THROUGH THOSE PILLS RATHER QUICKLY. ANDRES DID MOVE HER HEAD TO THE LEFT INDEPENDENTLY, THIS WAS THE FIRST TIME I SAW HER MOVE HER HEAD LIKE THAT, IT WASN'T IN RESPONSE TO ANY STIMULI NOTED.
--- NOTE | 2020-06-19 17:59 | NUR ---
ANDRES REMAINS UNRESPONSIVE. SHE HAS INWARD ROTATION OF THE UPPER EXTREMITIES TO PAINFUL STIMULI, WITHDRAWAL OF HER FEET TO TOUCH. THERE IS NO MOVEMENT OF THE HANDS/ARMS/WRISTS/KNEES/HIPS/ANKLES. SHE CONTINUES TO CLENCH HER JAW WHEN ATTEMPTS ARE MADE TO CLEAN/SUCTION HER MOUTH. HER JO CONTINUES TO DRAIN ORANGE/ASHU COLOR AND THE RECTAL TUBE RETURNS GREEN/YELLOW RETURN. SKIN IS JAUNDICED, EYES ARE FIXED, EXCEPT FOR THE ONE MOMENT OF LEFT GAZE. HANDS AND FEET CONTINUE TO BE EDEMATOUS, SCD'S IN PLACE. TUBE FEEDING CONTINUES VIA DOBHOFF WITHOUT ANY ISSUES.
--- NOTE | 2020-06-19 21:46 | NUR ---
ASSUMPTION OF CARE PT RESTING IN BED, PT IS WITHDRAWING FROM PAIN x4 EXT, MOANS WITH TURNS AND PAINFUL STIMULI, CORNEAL REFLEXES PRESENT BUT DOES NOT TRACK OBJECTS. O2 SATURATIONS> 90% ON RA, MONITOR SHOWS SINUS TACH WITH HR 100-120, BP STABLE. SKIN REMAINS JAUNDICED, JO IN PLACE WITH ORANGE URINE. DOBHOFF IN PLACE WITH TF @ GOAL RATE OF 15ml/hr. RECTAL TUBE IN PLACE WITH LIQUID GREEN OUTPUT.
[2020-06-20 05:14] LABS: BASOPHILS ABSOLUTE AUTO 0.08 K/mm3 (0.00-0.23); BASOPHILS PERCENT AUTO 1 % (0-2); Hematocrit 34.8 % (33.0-51.0); Hemoglobin 10.5 g/dL (11.5-16.0); LYMPHOCYTES ABSOLUTE AUTO 2.02 K/mm3 (0.84-5.20); LYMPHOCYTES PERCENT AUTO 12 % (21-46); MONOCYTES ABSOLUTE AUTO 3.29 K/mm3 (0.16-1.47); MONOCYTES PERCENT AUTO 20 % (4-13); Mean Corpuscular HGB 32.8 pg (26.0-34.0); Mean Corpuscular HGB Conc 30.2 g/dL (31.5-36.5); Mean Platelet Volume 11.6 fL (9.1-12.4); NRBC Auto 0.6 /100 WBC (0.0-0.2); Platelet Count 134 K/mm3 (150-400); RDW Coefficient Variation 27.4 % (11.7-14.2); RDW Standard Deviation 104.9 fL (35.1-46.3); White Blood Cell Count 16.45 K/mm3 (4.00-11.30)
[2020-06-20 05:27] LABS: EOSINOPHILS PERCENT AUTO 0 % (0-6); IMMATURE GRAN ABSOLUTE AUTO 0.88 K/mm3 (0.00-0.10); IMMATURE GRAN PERCENT AUTO 5 % (0-1); International Normalized Ratio 2.04; Mean Corpuscular Volume 109 fL (80-100); NEUTROPHILS ABSOLUTE AUTO 10.18 K/mm3 (1.96-9.15); NEUTROPHILS PERCENT AUTO 62 % (41-73)
[2020-06-20 05:34] LABS: BAND PERCENT MAN 2 % (0-8); BASOPHILS PERCENT MAN 0 % (0-2); EOSINOPHILS PERCENT MAN 0 % (0-6); LYMPHOCYTES ABSOLUTE MAN 2.46 K/mm3 (0.84-5.20); LYMPHOCYTES PERCENT MAN 15 % (21-46); MONOCYTES ABSOLUTE MAN 3.29 K/mm3 (0.16-1.47); MONOCYTES PERCENT MAN 20 % (4-13); NEUTROPHILS ABSOLUTE MAN 10.69 K/mm3 (1.96-9.15); SEG NEUTROPHILS PERCENT MAN 63 % (41-73); TOTAL CELLS COUNTED 100
[2020-06-20 05:42] LABS: Alanine Aminotransfer (ALT/SGP 93 U/L (12-78); Albumin, Blood 1.6 g/dL (3.4-5.0); Albumin/Globulin Ratio 0.4 (0.8-1.8); Alk Phos 199 U/L (50-136); Anion Gap 4 mmol/L (6-16); Aspartate Aminotrans (AST/SGOT 178 U/L (12-37); Bilirubin, Total 19.8 mg/dL (0.1-1.0); Blood Urea Nitrogen 30 mg/dL (8-24); Bun/Creatinine Ratio 58.5 (12.0-20.0); CO2, Blood 24 mmol/L (21-32); Calcium, Blood 8.4 mg/dL (8.5-10.1); Chloride, Blood 125 mmol/L (98-108); Creatinine, Blood 0.51 mg/dL (0.40-1.00); Globulin, Blood 4.3 g/dL (2.2-4.0); Glomerular Filtration Rate >60 (60-); Glucose, Blood 183 mg/dL (70-99); Potassium, Blood 5.1 mmol/L (3.5-5.5); Sodium, Blood 153 mmol/L (136-145); Total Protein, Blood 5.9 g/dL (6.4-8.2)
--- NOTE | 2020-06-20 06:42 | NUR ---
SHIFT SUMMARY PT WITH CORNEAL REFLEXES AND WITHDRAWING FROM PAIN WITH ASSUMPTION OF CARE BUT WITH FOLLOW UP ASSESSMENTS CORNEAL REFLEXES ABSENT AND PT NOT WITHDRAWING FROM PAIN. PT REMAINS ON ROOM AIR WITH O2 SATURATIONS>95%, MONITOR SHOWS SINUS TACH WITH HR 100-120'S. RECTAL TUBE REMAINS IN PLACE, OUTPUT APPEARS TO CONSIST OF MAINLY LACTULOSE WITH LITTLE STOOL PRESENT. JO IN PLACE DRAINING ORANGE URINE.
--- NOTE | 2020-06-20 07:30 | NUR ---
PT RECEIVED FROM ADELITA DEAN. PT CONTINUES WITH EYES FIXED FORWARD, NO RESPONSE TO STIMULI. BUE CONTINUE TO BE FLACCID, FEET WITHDRAW TO STIMULI. CONTINUES TO MOAN AND SIGH ON OCC. JO ORANGE RETURN, RECTAL TUBE WITH GREEN RETURN.
--- NOTE | 2020-06-20 15:30 | NUR ---
PT HAS BEEN HAVING SOME SPONTANEOUSLY WITH THE HEAD AND LEFT SHOULDER. MOM IS IN THE ROOM AND FEELING ENCOURAGED. CONTINUES TO NOT HAVE PURPOSEFUL MOVEMENT OR RESPONSES TO PAINFUL STIMULI. REPORT GIVEN TO ALEX MADSEN RN
--- NOTE | 2020-06-20 15:41 | NUR ---
ASSUMED CARE.... ASSUMED CARE OF PT AT 1530, PT'S MOTHER AT THE BEDSIDE REQUSTED TO SPEAK WITH DR. LOERA, DR. LOERA CALL AND NOTIFIED. PT'S VS STABLE AT THIS TIME. RECTAL TUBE AND JO IN PLACE AND PATENT, TUBE FEED RUNNING PER ORDERS. WILL CONTINUE TO MONITOR.
--- NOTE | 2020-06-20 18:29 | NUR ---
SHIFT SUMMARY... NO ACUTE NEGATIVE CHANGES SINCE ASSUMING CARE THIS AFTERNOON. PT'S VS HAVE BEEN STABLE. PT'S MOTHER AT THE BEDSIDE UNTIL APROX 1730 TODAY. DURING LAST ROUNDS THE PT STARTED TO RESPOND TO PAINFUL STIMULI, AND WITHDRAW FROM PAIN. PT'S RECTAL TUBE BAG WAS CHANGED AND CHARTED. JO PATENT AND DRAINING DARK YELLOW/ORANGE URINE. PT HAS TUBE FEED RUNNING PER ORDERS VIA DOBHOFF. RECTAL TUBE WAS INSTILLED WITH LACTULOSE PER ORDERS. WILL CONTINUE TO MONITOR UNTIL REPORT IS GIVEN TO ONCOMING RN.
--- NOTE | 2020-06-20 21:10 | NUR ---
ASSUMPTION OF CARE PT REMAINS OBTUNDED IN BED, PT WITHDRAWS FROM PAIN x4 EXTREMETIES AND CORNEAL REFLEXES PRESENT AT THIS TIME. PT DOES NOT TRACK ITEMS AND IS NOT RESPONSIVE TO VERBAL STIMULI. O2 SATURATIONS> 90% ON ROOM AIR, RESP RATE 30'S. MONITOR SHOWS SINUS TACH WITH HR 100-120, BP STABLE. SKIN REMAINS JAUNDICED, URINE OUTPUT PER JO REMAINS VERY DARK ORANGE. RECTAL TUBE IN PLACE DRAINING LIQUID GREEN STOOL. DOBHOFF IN PLACE WITH TF @ 15ml/hr. D5 1/2NS INF.
[2020-06-21 04:39] LABS: BASOPHILS ABSOLUTE AUTO 0.13 K/mm3 (0.00-0.23); BASOPHILS PERCENT AUTO 1 % (0-2); EOSINOPHILS ABSOLUTE AUTO 0.01 K/mm3 (0.00-0.68); EOSINOPHILS PERCENT AUTO 0 % (0-6); Hematocrit 35.2 % (33.0-51.0); Hemoglobin 10.4 g/dL (11.5-16.0); IMMATURE GRAN PERCENT AUTO 4 % (0-1); LYMPHOCYTES ABSOLUTE AUTO 2.18 K/mm3 (0.84-5.20); LYMPHOCYTES PERCENT AUTO 10 % (21-46); MONOCYTES ABSOLUTE AUTO 2.95 K/mm3 (0.16-1.47); MONOCYTES PERCENT AUTO 13 % (4-13); Mean Corpuscular HGB 32.8 pg (26.0-34.0); Mean Corpuscular HGB Conc 29.5 g/dL (31.5-36.5); Mean Corpuscular Volume 111 fL (80-100); Mean Platelet Volume 12.3 fL (9.1-12.4); NEUTROPHILS PERCENT AUTO 72 % (41-73); NRBC ABSOLUTE 0.07 K/mm3 (0.00-0.02); NRBC Auto 0.3 /100 WBC (0.0-0.2); Platelet Count 149 K/mm3 (150-400); RDW Coefficient Variation 27.1 % (11.7-14.2); RDW Standard Deviation 107.2 fL (35.1-46.3); Red Blood Cell Count 3.17 M/mm3 (3.80-5.20); White Blood Cell Count 21.97 K/mm3 (4.00-11.30)
[2020-06-21 05:11] LABS: Alanine Aminotransfer (ALT/SGP 109 U/L (12-78); Albumin, Blood 1.5 g/dL (3.4-5.0); Albumin/Globulin Ratio 0.4 (0.8-1.8); Alk Phos 202 U/L (50-136); Anion Gap 3 mmol/L (6-16); Aspartate Aminotrans (AST/SGOT 186 U/L (12-37); Bilirubin, Total 18.2 mg/dL (0.1-1.0); Blood Urea Nitrogen 34 mg/dL (8-24); Bun/Creatinine Ratio 58.3 (12.0-20.0); CO2, Blood 24 mmol/L (21-32); Calcium, Blood 8.4 mg/dL (8.5-10.1); Chloride, Blood 126 mmol/L (98-108); Creatinine, Blood 0.58 mg/dL (0.40-1.00); Globulin, Blood 4.2 g/dL (2.2-4.0); Glomerular Filtration Rate >60 (60-); Glucose, Blood 273 mg/dL (70-99); Magnesium, Blood 2.6 mg/dL (1.6-2.4); Phosphorus, Blood 1.4 mg/dL (2.5-4.9); Potassium, Blood 4.5 mmol/L (3.5-5.5); Sodium, Blood 153 mmol/L (136-145); Total Protein, Blood 5.7 g/dL (6.4-8.2)
--- NOTE | 2020-06-21 06:45 | NUR ---
SHIFT SUMMARY PT BECOMING MORE AROUSABLE, OPENS EYES TO VERBAL STIMULI, NODS HEAD YES/NO, BUT REMAINS VERY LETHARGIC AND PROFOUNDLY WEAK. PT MOVES EXTREMETIES INDEPENDENTLY, PT GUARDING RUQ, GRIMACES AT TIMES. NURSING CARE/REPOSITIONING VERY PAINFUL FOR PT, PT BECOMES TEARFUL AT TIMES. PT ON RA WITH O2 SATURATIONS> 90%, MONITOR SHOWS SINUS TACH WITH HR 100-120, BP STABLE. DOBHOFF IN [place], TF TITRATED TO GOAL RATE OF 40ml/hr. RECTAL TUBE IN PLACE WITH LIQUID GREEN OUTPUT. JO IN PLACE DRAINING ASHU/ORANGE URINE.
--- NOTE | 2020-06-21 08:30 | NUR ---
AM NOTE... ASSUMED CARE OF PT APROX 0700, PT WILL MOAN AND PULL AWAY FROM PAINFUL STIMULI, DURING ASSESSMENT OF HER ABD THE PT MOANED AND SAID "MY STOMACH HURTS" BUT PT WAS NOT ABLE TO FOLLOW DIRECTIONS, OPEN HER EYES OR SAY ANYTHING ELSE. PT'S VS STABLE AT THIS TIME. TUBE FEEDING RUNNING PER ORDERS AT GOAL OF 40MLS/HR. JO PATENT AND DRAINING ORANGE URINE TO GRAVITY, RECTAL TUBE IN PLACE DRAINING LIGHT YELLOW/GREENISH LIQUID STOOLS TO GRAVITY. L/S CLEAR T/O ON RA. BT PRESENT BUT HYPOACTIVE, ABD IS SEVERELY DISTENDED FIRM AND PAINFUL TO PALP. PT HAS 2+ PITTING EDEMA TO HER BLE AND 1+ TO HER BUE AND GENERALIZED EDEMA T/O HIPS, BUTTOCKS. PT IS IN NSR/SINUS TACH. POWERGLIDE IN THE SAMINA PATENT AND RUNNING 1/2 NS AT 75MLS/HR. WILL CONTINUE TO MONITOR.
--- NOTE | 2020-06-21 17:42 | NUR ---
SHIFT SUMMARY... NO ACUTE NEGATIVE CHANGES NOTED THIS SHIFT. PT CONTINUES TO BECOME MORE AWAKE AND ALERT, PT WAS ABLE TO STATE SHE WAS IN [place], AND IT WAS 2020. PT C/O OF 10/10 ABD PAIN. PT IS VERY PAINFUL ANY TIME SHE IS TOUCHED OR MOVED. PT'S VS HAVE BEEN STABLE T/O SHIFT. RECTAL TUBE IS PATENT AND DRAINING LIQUID STOOLS TO GRAVITY. JO IS PATENT AND DRAINING DARK YELLOW/ORANGE URINE TO GRAVITY. PT'S MOTHER AT THE BEDSIDE FOR VISITING HOURS. PT HAD ABD ULTRA SOUND AND MAY HAVE A PARACENTESIS TOMORROW DEPENDING ON THE RESULTS. CALL LIGHT IN REACH WILL CONTINUE TO MONITOR UNTIL REPORT IS GIVEN TO ONCOMING RN.
--- NOTE | 2020-06-21 19:00 | NUR ---
ASSUMED CARE NOTE: ASSUMED CARE OF PT AT 1900. PT IS RESPONDING TO VERBAL AND PAINFUL STIMULI. PT IS ABLE TO FOLLOW SIMPLE COMMANDS AND ANSWER YES/NO QUESTIONS. PT IS VERY WEAK T/O, ABLE TO MOVE BILAT ARMS WITH PURPOSE. PT IS ON RA WITH SPO2 ABOVE 90% NO RESP DISTRESS NOTED. PT IN SIT WITH HR BETWEEN 90-110. BP STABLE. PT IS VERY JAUNDICED, ABDOMEN DISTENDED, VERY TENDER. PT BILAT FEET ARE 2+ EDEMA, VERY SENSITIVE TO TOUCH, PT WILL BEING TO MOAN AND WITHDRAW FROM CARE. FOELY IS PATENT, DRAINING TO GRAVITY, DARK ASHU IN COLOR. RECTAL TUBE IN PLACE, YELLOW DRAINAGE NOTED. WILL CONTINUE TO MONITOR PT T/O SHIFT.
--- NOTE | 2020-06-21 22:57 | NUR ---
UPDATE: TUBE FEED PIVOT 1.5 FINISHED. HIGH VITAL PROTEIN 1.0 RUNNING AT 40ML/HR. THERE WAS NO 1.5 HIGH VITAL PROTEIN AVAILABLE. CHARGE NURSE AWARE. DIETIAN WILL BE MADE AWARE IN THE AM.
[2020-06-22 04:07] LABS: BASOPHILS ABSOLUTE AUTO 0.05 K/mm3 (0.00-0.23); BASOPHILS PERCENT AUTO 0 % (0-2); EOSINOPHILS PERCENT AUTO 0 % (0-6); Hematocrit 29.4 % (33.0-51.0); Hemoglobin 8.8 g/dL (11.5-16.0); IMMATURE GRAN ABSOLUTE AUTO 0.64 K/mm3 (0.00-0.10); IMMATURE GRAN PERCENT AUTO 3 % (0-1); LYMPHOCYTES ABSOLUTE AUTO 2.05 K/mm3 (0.84-5.20); LYMPHOCYTES PERCENT AUTO 11 % (21-46); MONOCYTES ABSOLUTE AUTO 1.94 K/mm3 (0.16-1.47); MONOCYTES PERCENT AUTO 10 % (4-13); Mean Corpuscular HGB 33.3 pg (26.0-34.0); Mean Corpuscular HGB Conc 29.9 g/dL (31.5-36.5); Mean Corpuscular Volume 111 fL (80-100); Mean Platelet Volume 12.3 fL (9.1-12.4); NEUTROPHILS ABSOLUTE AUTO 14.26 K/mm3 (1.96-9.15); NEUTROPHILS PERCENT AUTO 75 % (41-73); NRBC ABSOLUTE 0.03 K/mm3 (0.00-0.02); NRBC Auto 0.2 /100 WBC (0.0-0.2); Platelet Count 138 K/mm3 (150-400); RDW Coefficient Variation 27.3 % (11.7-14.2); Red Blood Cell Count 2.64 M/mm3 (3.80-5.20); White Blood Cell Count 18.94 K/mm3 (4.00-11.30)
[2020-06-22 04:19] LABS: International Normalized Ratio 2.21; Prothrombin Time Results 22.6 Sec (9.7-11.5)
[2020-06-22 04:32] LABS: Alanine Aminotransfer (ALT/SGP 99 U/L (12-78); Albumin, Blood 2.4 g/dL (3.4-5.0); Albumin/Globulin Ratio 0.7 (0.8-1.8); Alk Phos 170 U/L (50-136); Anion Gap 3 mmol/L (6-16); Aspartate Aminotrans (AST/SGOT 150 U/L (12-37); Bilirubin, Total 17.8 mg/dL (0.1-1.0); Blood Urea Nitrogen 33 mg/dL (8-24); Bun/Creatinine Ratio 59.8 (12.0-20.0); CO2, Blood 24 mmol/L (21-32); Calcium, Blood 8.4 mg/dL (8.5-10.1); Chloride, Blood 132 mmol/L (98-108); Creatinine, Blood 0.55 mg/dL (0.40-1.00); Globulin, Blood 3.3 g/dL (2.2-4.0); Glomerular Filtration Rate >60 (60-); Glucose, Blood 275 mg/dL (70-99); Potassium, Blood 3.7 mmol/L (3.5-5.5); Sodium, Blood 159 mmol/L (136-145); Total Protein, Blood 5.7 g/dL (6.4-8.2)
--- NOTE | 2020-06-22 06:42 | NUR ---
SHIFT SUMMARY: SEE PREVIOUS NOTES. PT CONTINUES TO RESPOND TO VERBAL AND PAINFUL STIMULI. PT CAN SAY A FEW PHRASES " I WANT TO GO HOME, PLEASE STOP, I AM HURTING" PT GIVEN PAIN MEDS PER EMAR. IS ABLE TO TOLERATE THEM, W/O CHANGING HER NEURO STATUS. PT HAS BEEN IN SINUS - SINUS TACH HR BETWEEN 80-110. BP STABLE. PT HAS BEEN ON RA WITH SPO2 ABOVE 90% HIGH VITAL PROTEIN 1.0 RUNNING AT 40ML/HR VIA DOBHOFF. ABDOMEN REMAINS DISTENDED AND TENDER. RECTAL TUBE DRAINING TO GRAVITY YELLOW LIQUID STOOL NOTED. RECTAL BAG CHANGED TWICE THIS SHIFT. WHEN LACTULOSE GIVEN PER RECTAL TUBE, SOME WILL LEAK OUT AND PT NEEDS TO BE CLEAN OVER THE NEXT FEW HOURS AFTER MED ADMINISTRATION TO MAINTAIN SKIN DRY AND TO PREVENT BREAKDOWN. JO IS PATNET DRAINING TO GRAVITY.WILL CONTINUE TO MONITOR PT UNTIL REPORT IS GIVEN TO ONCOMING SHIFT.
--- NOTE | 2020-06-22 07:25 | NUR ---
ASSUMED CARE: PT IS NSR AT 85 ON TELE. DOBHOFF IN PLACE AT GOAL, RECTAL TUBE AND JO CATH IN PLACE. PT APPEARS TO BE COMFORTABLE AT THIS TIME. NO ACUTE NEEDS OR CONCERNS.
--- NOTE | 2020-06-22 15:47 | NUR ---
PT'S SIGNIFICANT OTHER AT BEDSIDE. UPDATE GIVEN ABOUT PT'S CURRENT STATUS. PT AWAKE AND TALKING, SPEECH SLURRED BUT WIDE AWAKE. ORIENTED TO SELF AND S.O. S.O. HAS TO REORIENT HER TO RECENT EVENTS AND ANSWERS QUESTIONS SHE ASKS THEM. THEY DENY NEEDS OR CONCERNS AT THIS TIME.
--- NOTE | 2020-06-22 19:18 | NUR ---
REPORT ON PT GIVEN TO ADELITA EDMOND. PT TRANSFERRED VIA BED BY ELEMENTARY SECRETARY AND RN FOR BEDSIDE REPORT. DISCUSSED LACTULOSE ENEMAS WITH RN. PT'S FIANCE AWARE OF NEW BED ASSIGNMENT. NO OTHER NEEDS OR CONCERNS
--- NOTE | 2020-06-23 02:24 | NUR ---
PT HAD A TELEPHONE CALL WITH HER MOTHER, AND HER SO ODALIS KWON. PT FIXATES ON SEVERAL ITEMS, SHE KEPT REPORTING SHE WANTED TO GO HOME, WANTS FOOD/FLUIDS OTHER THAN ICE CHIPS, AND IS REPORTING SHE WANTS HER NG TUBE OUT. SHE REPORTS SHE PLANS ON GOING HOME TOMORROW WITH HER MOTHER - KEPT REDIRECTING AND REITERATING PROGRESS SHE IS MAKING IN THE HOSPITAL, BUT THE HASN'T RELEASED HER FOR DISCHARGE YET. PT HAS BEEN AWAKE SINCE THE BEGINNING OF THE SHIFT. PT IS NOW CURRENTLY SLEEPING.
[2020-06-23 05:07] LABS: Anion Gap 6 mmol/L (6-16); Blood Urea Nitrogen 27 mg/dL (8-24); Bun/Creatinine Ratio 54.8 (12.0-20.0); CO2, Blood 23 mmol/L (21-32); Calcium, Blood 8.4 mg/dL (8.5-10.1); Chloride, Blood 120 mmol/L (98-108); Creatinine, Blood 0.49 mg/dL (0.40-1.00); Glomerular Filtration Rate >60 (60-); Glucose, Blood 458 mg/dL (70-99); Sodium, Blood 149 mmol/L (136-145)
--- NOTE | 2020-06-23 06:54 | NUR ---
SHIFT SUMMARY - PT HAS BEEN FOCUSED ON WANTING TO GO HOME, WANTING HER NG TUBE OUT, TO STAND UP AND WALK. PT HAS BEEN EDUCATED/REDIRECTED ON NEED FOR HOSPITAL STAY UNTIL SHE IS MEDICALLY CLEARED BY THE DR. I UPDATED HER ON THE PLAN, FOR POTENTIAL REMOVAL OF NG TUBE TODAY, AND PT/OT ORDER, AND THAT THIS INFORMATION WILL BE REPORTED OFF TO ONCOMING SHIFT. I ALSO REPORTED THAT THE DR. WILL SEE HER AGAIN TODAY, AND WILL BE ABLE TO ANSWER HER QUESTIONS. CALL LIGHT WITHIN REACH. BED IN LOW POSITION. ICE CHIPS AT BEDSIDE. BED ALARM ON.
[2020-06-23 13:01] LABS: International Normalized Ratio 1.92; Prothrombin Time Results 19.8 Sec (9.7-11.5)
[2020-06-23 15:29] LABS: Albumin, Blood 3.5 g/dL (3.4-5.0); Albumin/Globulin Ratio 1.3 (0.8-1.8); Bilirubin, Direct 11.6 mg/dL (0.0-0.3); Bilirubin, Indirect 4.2 mg/dL (0.1-0.7); Bilirubin, Total 15.8 mg/dL (0.1-1.0); Globulin, Blood 2.7 g/dL (2.2-4.0); Total Protein, Blood 6.2 g/dL (6.4-8.2)
--- NOTE | 2020-06-23 18:10 | NUR ---
PT SUMMARY; PT IS ALERT TO SELF, SURROUNDINGS AND FAMILY, FORGETFUL AND CONFUSED AT TIMES, REPEATS HERSELF ESPECIALLY ABOUT GOING HOME TODAY. PT DENIES ANY CHEST PAIN/PRESSURE VITALS HAS BEEN STABLE, HAS PAIN ON BOTH FEET WHEN DORSIFLEXING. PT/OT/ST ORDERED TODAY PT WAS ABLE TO PARTICIPATE TOO WEAK YET TO STAND UP BUT WAS ABLE TO SIT ON THE SIDE OF THE BED AND DO ROM EXERCISES, LIFT FOR NOW FOR TRANSFERS. ST EVAL DONE DIET RESUMED TO FULL LIQUID PT WAS ABLE TO TOLERATE. DOBHOFF AND TF DC'D. PT'S CBG HAS BEEN RANGING 300-400 DR BURNS IS AWARE TO CONTINUE D5W FOR NOW LONG INSULIN COVERS CBG. RECTAL TUBE DRAINING VIA GRAVITY LACTULOSE ENEMA GIVEN Q6H. JO DRAINING DARK YELLOW/ORANGE URINE. MOTHER WAS IN TO VISIT MADE AWARE OF THE PLAN. NO OTHER ISSUES AT THIS TIME, PT NOW IN BED RESTING CALL LIGHTS IN REACH, WILL MONITOR UNTIL END OF SHIFT
[2020-06-24 04:56] LABS: BASOPHILS ABSOLUTE AUTO 0.02 K/mm3 (0.00-0.23); BASOPHILS PERCENT AUTO 0 % (0-2); EOSINOPHILS PERCENT AUTO 0 % (0-6); Hematocrit 25.9 % (33.0-51.0); Hemoglobin 7.9 g/dL (11.5-16.0); IMMATURE GRAN ABSOLUTE AUTO 0.49 K/mm3 (0.00-0.10); IMMATURE GRAN PERCENT AUTO 3 % (0-1); LYMPHOCYTES PERCENT AUTO 18 % (21-46); MONOCYTES PERCENT AUTO 9 % (4-13); Mean Corpuscular HGB 33.6 pg (26.0-34.0); Mean Corpuscular HGB Conc 30.5 g/dL (31.5-36.5); Mean Corpuscular Volume 110 fL (80-100); Mean Platelet Volume 12.9 fL (9.1-12.4); NEUTROPHILS PERCENT AUTO 71 % (41-73); NRBC ABSOLUTE 0.08 K/mm3 (0.00-0.02); NRBC Auto 0.5 /100 WBC (0.0-0.2); Platelet Count 127 K/mm3 (150-400); RDW Coefficient Variation 27.2 % (11.7-14.2); RDW Standard Deviation 103.8 fL (35.1-46.3); Red Blood Cell Count 2.35 M/mm3 (3.80-5.20); White Blood Cell Count 17.51 K/mm3 (4.00-11.30)
[2020-06-24 05:16] LABS: Alanine Aminotransfer (ALT/SGP 101 U/L (12-78); Albumin, Blood 3.1 g/dL (3.4-5.0); Albumin/Globulin Ratio 1.1 (0.8-1.8); Alk Phos 124 U/L (50-136); Anion Gap 8 mmol/L (6-16); Aspartate Aminotrans (AST/SGOT 130 U/L (12-37); Bilirubin, Total 14.2 mg/dL (0.1-1.0); Blood Urea Nitrogen 20 mg/dL (8-24); Bun/Creatinine Ratio 46.3 (12.0-20.0); CO2, Blood 22 mmol/L (21-32); Calcium, Blood 8.7 mg/dL (8.5-10.1); Chloride, Blood 118 mmol/L (98-108); Creatinine, Blood 0.43 mg/dL (0.40-1.00); Globulin, Blood 2.9 g/dL (2.2-4.0); Glomerular Filtration Rate >60 (60-); Glucose, Blood 142 mg/dL (70-99); Magnesium, Blood 2.3 mg/dL (1.6-2.4); Phosphorus, Blood 1.4 mg/dL (2.5-4.9); Potassium, Blood 3.4 mmol/L (3.5-5.5); Sodium, Blood 148 mmol/L (136-145)
--- NOTE | 2020-06-24 06:32 | NUR ---
SHIFT SUMMARY NO ACUTE CHANGES THIS SHIFT. PT ALERT, ORIENTED TO SELF, PLACE, PEOPLE. PT OCCASIONALLY CONFUSED. CONVERSATIONS DO NOT FLOW, STATES SENTENCES THAT DONT MATCH CONVERSATION. EXAMPLE: PT TOLD THIS RN, "I'M REALLY SORRY. I WASNT TRYING TO STEAL YOUR BABY." SP02>92% ON RA. TELEMETRY READS SR, HR 80'S. PT C/O OF PAIN IN FEET WHEN TOUCHED. JO CATHETER DRAINING ORANGE/BRIGHT YELLOW URINE TO GRAVITY. STAINS TUBING. RECTAL TUBE DRAINING TO GRAVITY W/ Q6 LACTULOSE ENEMAS. RECTAL TUBE BAG CHANGED X2 THIS SHIFT. FLUIDS INFUSED PER EMAR. SCD;S ON MOST OF SHIFT. PT NAPPED X2 THIS SHIFT FOR A TOTAL OF APPROX 3 HRS. CALL LIGHT IN REACH. BED IN LOWEST POSITION. PT STATES SHE WANTS TO GO HOME.
[2020-06-24 08:10] LABS: HBSAG SCREEN Negative (Negative); HEP A AB, IGM Negative (Negative); HEP B CORE AB, IGM Negative (Negative); HEP C VIRUS AB 0.2 (0.0-0.9)
--- NOTE | 2020-06-24 11:25 | NUR ---
Palliative care visit to Herminia this morning. She is awake and sitting up in a chair. She has a lift pad under her in the chair. She is alert and oriented to her name and place. She denies any pain or nausea at this time. She states she gets SOB with exertion but no SOB currently. She wants to go home. She says random statements that do not pertain to the topic that is being discussed. She was asked how she was feeling today vs. yesterday she started talking about her mother and step father. She is unable to carry on any meaningful conversation at this time. She appears comfortable. Her feet are swollen and her jaundice has improved some in the past week. PC will continue to follow for symptom managment and advanced care planning. She will likely require more assistance for ADLs going forward.
--- NOTE | 2020-06-24 13:23 | NUR ---
Spiritual care visit conducted. Patient is sitting up in bed and alert. Patient tells me that she has no family support and that she does not feel well today. She could not define what that means. She tells me that she believes in God. Her answers are short and sometimes out of context. She shares that "bad people do bad things ... good people do bad things too." I asked her I could say a prayer for her and she stated, "Please." I gladly provide prayer and include asking for her to be forgiven of any "bad things." I will continue to remain available to patient.
--- NOTE | 2020-06-24 14:26 | NUR ---
SUMMARY: 06/24/20- per chart review with Dr. nam, pt is improving but there is no plan to d/c at this time. Pt has expressed that she would like to go home but also states that she does not have a good support system at home. -lois
--- NOTE | 2020-06-24 22:36 | NUR ---
PT UPDATE PT ALERT, ORIENTED TO SELF, PLACE, PERSON. PT IRRITABLE, REFUSING CARE. WHEN REPOSITIONING PT, PT STATED, "GET AWAY FROM ME, LEAVE ME ALONE." PT CURSING AT STAFF. PT EDUCATED ON IMPORTANCE OF CHANGING SOILED LINENS FROM LEAKED RECTAL TUBE, PREVENTING SKIN BREAK DOWN. PT STATES, "I DONT CARE. LEAVE ME ALONE." WHEN ATTEMPTED TO GIVE EVENING MEDICATION, PT STATED "NO." PT EDUCATED ON IMPORTANCE OF MEDICATION TO MAKE PROGRESS WITH HER CONDITION. PT REPLIED, "WHAT THE IS WRONG WITH YOU? NO." CALL LIGHT IN REACH. BED ALARM ON, IN LOWEST POSITION.
--- NOTE | 2020-06-25 06:07 | NUR ---
SHIFT SUMMARY PT ALERT, ORIENTED TO SELF, STAFF, PLACE. PT IRRITABLE AT BEGINNING OF SHIFT, SEE PREVIOUS NOTE. AFTER APPROX MIDNIGHT, PT BEGAN TO COOPERATE, THOUGH STILL IRRITABLE. PT PARTICIPATED IN TAKING MEDICATION, LETTING STAFF Q2H REPOSITION. SP02>92% ON RA. NO TELEMETRY, VSS. JO CATHETER DRAINING DARK YELLOW URINE TO GRAVITY. RECTAL TUBE DRAINING ORANGE/YELLOW LOOSE STOOL TO GRAVITY. LEAKED X3 AT RECTUM LAST NIGHT, REQUIRING LINEN CHANGE. FLUIDS INFUSING PER EMAR. AT END OF SHIFT, PT C/O OF PAIN "EVERYWHERE." MEDICATED W/ TRAMODOL PER EMAR. CALL LIGHT IN [facility]. BED IN [facility] POS[facility].
--- NOTE | 2020-06-25 09:00 | NUR ---
ASSUMED CARE AT APPROXIMATELY 0730 PT ALERT AND ORIENTED TO SELF, PLACE, AND SITUATION. VS STABLE. O2 SATS REMAIN ABOVE 90% ON RA. BP STABLE. PT COMPLAINS OF PAIN "EVERYWHERE". REPOSITIONED PT AND MEDICATED NEEDED. PT HAVING LIQUID STOOL DUE TO LACTULOSE. RECTAL TUBE IN PLACE. JO CATHETER DRAINING DARK YELLOW URINE. PT UP TO CHAIR VIA LIFT FOR BREAKFAST. ORDERS TO TRANSFER TO MEDICAL FLOOR. WILL CONTINUE TO MONITOR CLOSELY.
[2020-06-25 09:53] LABS: BASOPHILS ABSOLUTE AUTO 0.01 K/mm3 (0.00-0.23); BASOPHILS PERCENT AUTO 0 % (0-2); EOSINOPHILS ABSOLUTE AUTO 0.07 K/mm3 (0.00-0.68); EOSINOPHILS PERCENT AUTO 1 % (0-6); Hematocrit 24.6 % (33.0-51.0); Hemoglobin 7.7 g/dL (11.5-16.0); IMMATURE GRAN ABSOLUTE AUTO 0.43 K/mm3 (0.00-0.10); IMMATURE GRAN PERCENT AUTO 3 % (0-1); LYMPHOCYTES ABSOLUTE AUTO 1.76 K/mm3 (0.84-5.20); LYMPHOCYTES PERCENT AUTO 14 % (21-46); MONOCYTES ABSOLUTE AUTO 1.02 K/mm3 (0.16-1.47); MONOCYTES PERCENT AUTO 8 % (4-13); Mean Corpuscular HGB 33.8 pg (26.0-34.0); Mean Corpuscular HGB Conc 31.3 g/dL (31.5-36.5); Mean Corpuscular Volume 108 fL (80-100); Mean Platelet Volume 12.6 fL (9.1-12.4); NEUTROPHILS ABSOLUTE AUTO 9.72 K/mm3 (1.96-9.15); NEUTROPHILS PERCENT AUTO 75 % (41-73); NRBC ABSOLUTE 0.02 K/mm3 (0.00-0.02); NRBC Auto 0.2 /100 WBC (0.0-0.2); Platelet Count 118 K/mm3 (150-400); RDW Coefficient Variation 26.3 % (11.7-14.2); Red Blood Cell Count 2.28 M/mm3 (3.80-5.20); White Blood Cell Count 13.01 K/mm3 (4.00-11.30)
[2020-06-25 10:13] LABS: Anion Gap 7 mmol/L (6-16); Blood Urea Nitrogen 11 mg/dL (8-24); Bun/Creatinine Ratio 26.8 (12.0-20.0); CO2, Blood 21 mmol/L (21-32); Calcium, Blood 7.9 mg/dL (8.5-10.1); Chloride, Blood 111 mmol/L (98-108); Creatinine, Blood 0.41 mg/dL (0.40-1.00); Glomerular Filtration Rate >60 (60-); Glucose, Blood 138 mg/dL (70-99); Potassium, Blood 3.5 mmol/L (3.5-5.5); Sodium, Blood 139 mmol/L (136-145)
--- NOTE | 2020-06-25 12:45 | NUR ---
UPDATE REPORT GIVEN TO MEDICAL FLOOR RN. PT TO BE TAKEN UP BY BED.
--- NOTE | 2020-06-25 18:42 | NUR ---
PATIENT IS ALERT AND ORIENTED AND COOPERATIVE WITH CARE. C/O PAIN "ALL OVER" JHER BODY, TREATED PER EMAR. DR. BURNS NOTIFIED THAT THE PATIENT STATES HER PAIN IS NOT REDUCED WITH THE PAIN MEDICATIONS PRESCRIBED, NO NEW ORDERS WERE GIVEN. THE PATIENT'S MOTHER WAS AT THE BEDSIDE FOR A COUPLE HOURS TODAY. JO IS PATENT. RECTAL TUBE IS IN PLACE. WILL CONTINUE TO MONITOR
--- NOTE | 2020-06-26 01:22 | NUR ---
Received report from Kiera UREÑA. Will be taking over the patient care. Patient is currently sleeping, call light is in reach.
--- NOTE | 2020-06-26 02:33 | NUR ---
SPOKE TO DR. ROBB REGARDING PATIENT STATING PAIN 10/10, SHE APPEARS TO BE COMFORTABLE BUT STATES HER PAIN NEVER CHANGES WITH THE MORHINE. ORDER FOR EXTRA DOSE OF MORPHINE WAS RECEIVED.
--- NOTE | 2020-06-26 05:41 | NUR ---
SHIFT SUMMARY: ASSUMED CARE AROUND 0122 THIS AM. REPORTED PAIN "EVERYWHERE" 10/10. "IT'S ALWAYS A 10 THAT STUFF THERE GIVING ME IS NOT EVEN TOUCHING IT" DURING THIS TIME SHE APPEARED COMFORTABLE EATING A PUDDING NO GRIMACING OR COMPLAINTS OF PAIN WITH MOVEMENT. DID CALL DR. ROBB, WHO GAVE EXTRA DOSE OF MORPHINE X1 5MG. SHE FELL RIGHT TO SLEEP. THIS AM STATES PAIN IS 10/10 THAT IT DID NOTHING, WENT TO GIVE ORDERED DOSE, "WELL I GUESS I WILL BE GOING BACK TO SLEEP". STILL NO CHANGE IN PAIN AFTER DOSE BUT APPEARS COMFORTABLE. VS WNL, AFEBRILE. JO DRAINING DARK YELLOW URINE. RECTAL TUBE DRAINING ORANGE/YELLOW STOOL, LIQUID. LEAKED X1 FOR ME REQUIRING LINEN CHANGE. GOOD APPETITE. NO OTHER CHANGES TO REPORT. CALL LIGHT REMAINS IN REACH.
--- NOTE | 2020-06-26 12:55 | NUR ---
RECTAL TUBE AND JO CATHETER REMOVED WITHOUT ISSUE.
--- NOTE | 2020-06-26 15:49 | NUR ---
DURING MORING VITALS PT BP WAS 103/70 HR OF 80, RECHECKED THE VITALS AT 1000 AND BP WAS 104/70, [address] BURNS TO CONFIRM LASIX SHOULD BE GIVEN DURING MORING MED PASS. ALSO NOTIFIED DR OF LAST K+ LEVEL WAS 3.5 AND ONES PREVIOUS WERE LOW. DR. BURNS STATED IT WAS OKAY TO GIVE LASIX DURING MORING MED PASS. NO LAB CHEMISTRY ORDERS FOR TODAY. DR BURNS CHANGED LACTOLOSE TO TID AND IV LASIX TO PO DAILY.
--- NOTE | 2020-06-26 18:34 | NUR ---
SHIFT SUMMARY PT IS A&OX4 BUT OVERESTIMATES HER ABILITY, FOR EXAMPLE: PT STATED WANTING TO GET UP AND GO TO THE BATHROOM BUT WAS UNABLE TO LIFT LEGS. PT HAS STATED PAIN THROUGH OUT SHIFT. PAIN IS ALLOVER BODY AND DOES NOT MANIFEST IN A PARTICULAR SPOT. PT HAS BEEN REPOSITIONED T/O SHIFT AND MEDICATED PER EMAR. PER ORDERS JO AND RECTAL TUBE REMOVED. PT HAS BEEN CONTINENT AND USING BED EDGAR DURING REST OF SHIFT, 3 UNFOMRED BM SINCE REMOVAL. PT WORKED WITH PHYSICAL THERPAY DURING SHIFT. WAS ABLE TO STAND WITH THEM FOR 10SECONDS NEXT TO BED. SIGNIFICANT OTHER VISIT THIS AFTERNOON. NO N/V/SOB DURING SHIFT.
--- NOTE | 2020-06-26 18:47 | NUR ---
PT STATES PAIN IS 10/10 AFTER ADMINISTRATION OF MORPHINE. PT ALSO STATES THAT IT "KNOCKS HER OUT." PT DOES NOT APPEAR TO BE IN DISTRESS.
--- NOTE | 2020-06-27 05:15 | NUR ---
06/27/20 0500 PT SLEEPING ON AND OFF THIS SHIFT. MEDICATED FOR GENERAL DISCOMFORT ONCE AND FOR ANXIETY ONCE EARLIER IN SHIFT. CALLS FOR BEDPAN PRN FOR VOIDING AND VOIDED 150 ML ONCE THIS SHIFT SO FAR. ORAL INTAKE IS FAR WELL. WILL ENCOURAGE MORE DRINKING WHEN SHE AWAKENS.
[2020-06-27 16:10] LABS: BASOPHILS ABSOLUTE AUTO 0.04 K/mm3 (0.00-0.23); BASOPHILS PERCENT AUTO 0 % (0-2); EOSINOPHILS ABSOLUTE AUTO 0.18 K/mm3 (0.00-0.68); EOSINOPHILS PERCENT AUTO 1 % (0-6); Hemoglobin 7.7 g/dL (11.5-16.0); IMMATURE GRAN ABSOLUTE AUTO 0.27 K/mm3 (0.00-0.10); IMMATURE GRAN PERCENT AUTO 2 % (0-1); LYMPHOCYTES ABSOLUTE AUTO 1.39 K/mm3 (0.84-5.20); LYMPHOCYTES PERCENT AUTO 11 % (21-46); MONOCYTES ABSOLUTE AUTO 1.32 K/mm3 (0.16-1.47); MONOCYTES PERCENT AUTO 10 % (4-13); Mean Platelet Volume 12.8 fL (9.1-12.4); NEUTROPHILS PERCENT AUTO 75 % (41-73); Platelet Count 160 K/mm3 (150-400)
[2020-06-27 16:46] LABS: Mean Corpuscular HGB 34.5 pg (26.0-34.0); Mean Corpuscular HGB Conc 32.1 g/dL (31.5-36.5); Mean Corpuscular Volume 108 fL (80-100); Red Blood Cell Count 2.23 M/mm3 (3.80-5.20)
--- NOTE | 2020-06-28 06:42 | NUR ---
06/28/20 0600 SLEPT ON AND OFF LAST NIGHT. C/O GENRALIZED DISCOMFORT. MEDICATED PER JUL 4 TIMES WITH BOTH IV AND PO PAIN MEDS. VOIDING QS. STILL VERY WEAK IN EXTREMITIES AND WILL HAVE PT TODAY.
[2020-06-28 08:19] LABS: Alanine Aminotransfer (ALT/SGP 89 U/L (12-78); Albumin, Blood 2.3 g/dL (3.4-5.0); Albumin/Globulin Ratio 0.7 (0.8-1.8); Alk Phos 127 U/L (50-136); Anion Gap 8 mmol/L (6-16); Aspartate Aminotrans (AST/SGOT 113 U/L (12-37); Bilirubin, Total 15.4 mg/dL (0.1-1.0); Blood Urea Nitrogen 7 mg/dL (8-24); Bun/Creatinine Ratio 16.9 (12.0-20.0); CO2, Blood 25 mmol/L (21-32); Calcium, Blood 7.7 mg/dL (8.5-10.1); Chloride, Blood 105 mmol/L (98-108); Creatinine, Blood 0.41 mg/dL (0.40-1.00); Globulin, Blood 3.1 g/dL (2.2-4.0); Glomerular Filtration Rate >60 (60-); Glucose, Blood 86 mg/dL (70-99); Potassium, Blood 2.8 mmol/L (3.5-5.5); Sodium, Blood 138 mmol/L (136-145); Total Protein, Blood 5.4 g/dL (6.4-8.2)
[2020-06-28 08:22] LABS: International Normalized Ratio 1.61; Prothrombin Time Results 16.8 Sec (9.7-11.5)
--- NOTE | 2020-06-28 17:17 | NUR ---
06/28/[address] Tracy today, no ETA for discharge yet. OT reccomendation SNF, Fulltime care, mechanical lift. PT reccomendation SNF, fulltime care. Has only stood at this time, tires easily s/w bedside nurse Amber Clark explains that Herminia is anxious about discharge plan. Herminia wants to know when Dr will tell her the plan. She is still complaining of pain and tires easily. cp I will meet with Herminia Sunday to discuss discharge options and what care she has available to help at home. cp
--- NOTE | 2020-06-28 18:44 | NUR ---
SHIFT SUMMARY PT WORKED WITH PT AND OT THIS AFTERNOON AND ABLE TO STAND UP TO A MINUTE AND 30 SECONDS TWICE. REPORTS FEET FEEL LIKE THEY ARE GOING TO SPLIT OPEN WHEN PUTTING PRESSURE ON THEM AND HASN'T WALKED YET. HAS BEEN USING A BEDPAN FOR OUTPUT. REPORT PAIN 10/10 WHETHER MEDS GIVEN OR NOT BUT SAYS IT "TAKES THE EDGE OFF". HAS HAD 3 STOOLS TODAY. FIANCE IN TO VISIT THIS AFTERNOON.
--- NOTE | 2020-06-29 02:00 | NUR ---
06/28/202014 CLAYTON KELLEY REQUESTED MED FOR ANXIETY. TALKING ABOUT POSSIBLE DISCHARGE IB THE NEAR FUTURE AND ANXIOUS ABOUT IT. RN INFORMED HER THAT SHE WILL NEED SOME PT TO IMPROVE HER STRENGTH AND SHE AGREES. ALSO I REMINDED HER THAT HER MOTHER WANTED TO REMOVE THE DNR CODE STATUS. PT STATED SHE KNEW SHE WAS DNR AND NOT WILLING TO CHANGE IT NOW. ENCOURAGED HER TO SPEAK WITH HER MOTHER WHEN SHE COMES TO SEE HER TOMORROW. SHE SAID SHE WOULD.
[2020-06-29 05:30] LABS: BASOPHILS ABSOLUTE AUTO 0.05 K/mm3 (0.00-0.23); BASOPHILS PERCENT AUTO 0 % (0-2); EOSINOPHILS PERCENT AUTO 1 % (0-6); Hemoglobin 7.3 g/dL (11.5-16.0); IMMATURE GRAN ABSOLUTE AUTO 0.22 K/mm3 (0.00-0.10); IMMATURE GRAN PERCENT AUTO 2 % (0-1); LYMPHOCYTES PERCENT AUTO 11 % (21-46); MONOCYTES ABSOLUTE AUTO 1.34 K/mm3 (0.16-1.47); MONOCYTES PERCENT AUTO 11 % (4-13); Mean Platelet Volume 12.5 fL (9.1-12.4); NEUTROPHILS PERCENT AUTO 75 % (41-73); Platelet Count 179 K/mm3 (150-400); White Blood Cell Count 11.81 K/mm3 (4.00-11.30)
[2020-06-29 05:53] LABS: Hematocrit 23.1 % (33.0-51.0); Mean Corpuscular HGB 33.6 pg (26.0-34.0); Mean Corpuscular HGB Conc 31.6 g/dL (31.5-36.5); Mean Corpuscular Volume 107 fL (80-100); Red Blood Cell Count 2.17 M/mm3 (3.80-5.20)
[2020-06-29 05:54] LABS: Alanine Aminotransfer (ALT/SGP 84 U/L (12-78); Albumin, Blood 2.3 g/dL (3.4-5.0); Albumin/Globulin Ratio 0.7 (0.8-1.8); Alk Phos 124 U/L (50-136); Anion Gap 6 mmol/L (6-16); Aspartate Aminotrans (AST/SGOT 118 U/L (12-37); Bilirubin, Total 15.2 mg/dL (0.1-1.0); Blood Urea Nitrogen 8 mg/dL (8-24); Bun/Creatinine Ratio 17.8 (12.0-20.0); CO2, Blood 26 mmol/L (21-32); Calcium, Blood 7.9 mg/dL (8.5-10.1); Chloride, Blood 108 mmol/L (98-108); Creatinine, Blood 0.45 mg/dL (0.40-1.00); Globulin, Blood 3.1 g/dL (2.2-4.0); Glomerular Filtration Rate >60 (60-); Glucose, Blood 86 mg/dL (70-99); Potassium, Blood 3.3 mmol/L (3.5-5.5); Sodium, Blood 140 mmol/L (136-145); Total Protein, Blood 5.4 g/dL (6.4-8.2)
--- NOTE | 2020-06-29 06:44 | NUR ---
06/29/20 0620 PT AWAKE MOST OF SHIFT AND STATES SHE NORMALLY DOESN'T SLEEP WELL AT NIGHT. MEDICATED FOR GENERAL DISCOMFORT AND ANXIETY THIS SHIFT. NO BM'S THIS SHIFT. SEE PREVIOUS NOTE.
--- NOTE | 2020-06-29 13:23 | NUR ---
Patient agreed to work with student nurse today.
--- NOTE | 2020-06-29 14:38 | NUR ---
06/29/20 Met with Herminia today, discussed discharge to rehab, her preference is [facility]. Dr Tracy told me she would be ready Sunday, Faby told me that the Dr said not until she can walk. We discussed that was the purpose of going to rehab. She does not think she will be ready tomorrow. I will complete a SNF request form and submit to Care management for Snf review. 2:15 pm Received a call from Faina ROSSI, Herminia was turned down by [facility] and [facility] pérez today due to her Alcoholism.
--- NOTE | 2020-06-29 18:00 | NUR ---
SHIFT SUMMARY PT WITH ANXIETY RELATED TO POSSIBLE DISCHARGE TO REHAB. STATES SHE WON'T GO OUT OF TOWN AND DOESN'T KNOW ABOUT GOING HOME EITHER. EXPLAINED TO HER SHE NEEDS TO CHOOSE ONE OR THE OTHER. MOTHER HERE TO VISIT THIS AFTERNOON AND TRIED TO ENCOURAGE AND OFFER IDEAS BUT PT DIDN'T APPEAR VERY INTERESTED IN WHAT MOTHER SAID. SHE DID REPORT SHE WAS GOING TO TALK TO HER FIANCE. UP TO RECLINER WITH P.T. AND O.T. TODAY AND WAS ABLE TO SIT UP FOR APPROX 15-20 MINUTES.
--- NOTE | 2020-06-30 03:38 | NUR ---
SHIFT SUMMARY AWAKE AT INTERVALS WITH C/O PAIN. SEE MAR FOR DETAILS OF MEDS ADMINISTERED FOR DETAILS. CURRENTLY RESTING QUIETLY. CALL LIGHT IN REACH
[2020-06-30 06:37] LABS: BASOPHILS ABSOLUTE AUTO 0.07 K/mm3 (0.00-0.23); BASOPHILS PERCENT AUTO 1 % (0-2); EOSINOPHILS ABSOLUTE AUTO 0.13 K/mm3 (0.00-0.68); EOSINOPHILS PERCENT AUTO 1 % (0-6); Hematocrit 22.3 % (33.0-51.0); Hemoglobin 7.2 g/dL (11.5-16.0); IMMATURE GRAN ABSOLUTE AUTO 0.17 K/mm3 (0.00-0.10); IMMATURE GRAN PERCENT AUTO 1 % (0-1); LYMPHOCYTES ABSOLUTE AUTO 1.55 K/mm3 (0.84-5.20); LYMPHOCYTES PERCENT AUTO 13 % (21-46); MONOCYTES ABSOLUTE AUTO 1.37 K/mm3 (0.16-1.47); MONOCYTES PERCENT AUTO 11 % (4-13); Mean Corpuscular HGB 34.4 pg (26.0-34.0); Mean Corpuscular HGB Conc 32.3 g/dL (31.5-36.5); Mean Corpuscular Volume 107 fL (80-100); NEUTROPHILS ABSOLUTE AUTO 9.05 K/mm3 (1.96-9.15); NEUTROPHILS PERCENT AUTO 73 % (41-73); Platelet Count 214 K/mm3 (150-400); RDW Coefficient Variation 24.3 % (11.7-14.2); RDW Standard Deviation 93.7 fL (35.1-46.3); Red Blood Cell Count 2.09 M/mm3 (3.80-5.20); White Blood Cell Count 12.34 K/mm3 (4.00-11.30)
[2020-06-30 06:54] LABS: International Normalized Ratio 1.67; Prothrombin Time Results 17.4 Sec (9.7-11.5)
[2020-06-30 07:03] LABS: Alanine Aminotransfer (ALT/SGP 86 U/L (12-78); Albumin, Blood 2.1 g/dL (3.4-5.0); Albumin/Globulin Ratio 0.6 (0.8-1.8); Alk Phos 142 U/L (50-136); Anion Gap 8 mmol/L (6-16); Aspartate Aminotrans (AST/SGOT 136 U/L (12-37); Bilirubin, Total 15.2 mg/dL (0.1-1.0); Blood Urea Nitrogen 6 mg/dL (8-24); Bun/Creatinine Ratio 13.9 (12.0-20.0); CO2, Blood 27 mmol/L (21-32); Calcium, Blood 7.8 mg/dL (8.5-10.1); Chloride, Blood 104 mmol/L (98-108); Creatinine, Blood 0.43 mg/dL (0.40-1.00); Globulin, Blood 3.3 g/dL (2.2-4.0); Glomerular Filtration Rate >60 (60-); Glucose, Blood 87 mg/dL (70-99); Potassium, Blood 3.2 mmol/L (3.5-5.5); Sodium, Blood 139 mmol/L (136-145); Total Protein, Blood 5.4 g/dL (6.4-8.2)
--- NOTE | 2020-06-30 09:25 | NUR ---
PATIENT STATED "I NEED TO SEE SOMEONE FROM PALLAITIVE CARE. I NEED TO TALK TO THEM ABOUT THIS DNR BAND." WHEN QUERIED, PATIENT EXPLAINED THAT "IF THERE IS NO BRAIN ACTIVITY, THEN DON'T TRY TO BRING ME BACK, JUST LET ME GO. THAT IS NO QUALITY OF LIFE. BUT IF THERE IS A CHANCE, THEN GO AHEAD AND TRY." DISCUSSED OPTIONS WITH PATIENT AND GAVE HER ADVANCE DIRECTIVE BOOKLET TO READ SO TO BE ABLE TO MAKE THE PROPER DECISION. WILL HAVE PALLIATIVE CARE SEE PT TOMORROW AFTER SHE HAS HAD TIME TO PERUSE BOOKLET.
--- NOTE | 2020-06-30 16:22 | NUR ---
06/30/20 met with Herminia today, does not want to go out of town for rehab, agreed to return home. Has a friend that is a certified alcohol and drug counselor that will help her at home. Pt states she is still a moderate assist. has not walked with a walker yet. Dr Tracy states she is not ready for discharge today. Will continue to follow to order home health and medical equipment needed for home discharge. cp
--- NOTE | 2020-06-30 16:39 | NUR ---
Spiritual care note: Met with Herminia, alone in room. She tells me she plans on going home and "having friends help with rehab." She is also planning on quitting drinking on her own. I advised there was help for both available. She is willing to allow Home Health. Prayer and industrial relations counselor provided. I will remain available.
--- NOTE | 2020-06-30 17:42 | NUR ---
SHIFT SUMMARY: NO ACUTE EVENTS, VSS. A&O X 3, PLEASANT BUT ANXIOUS AT TIMES. C/O PAIN IN BLE "ALWAYS A 10/10"; MEDICATED PER EMAR, NO RELIEF PER PATIENT. MEDICATED FOR NAUSEA X 1 WITH RELIEF. COMPLIANT WITH 1800 ML FLUID RESTRICTION. BM X 2 TODAY. UNABLE TO USE SCD'S D/T BLE PAIN. DID NOT GET OOB THIS SHIFT. HGB 7.2, UNIT OF PRBC'S TRANSFUSING NOW, TOLERATING WELL SO FAR. PLAN IS FOR REHAB.
--- NOTE | 2020-06-30 20:13 | NUR ---
PACK RBC TRANSFUSION ENDED, PT A&OX4, ABLE TO MAKE NEEDS KNOWN. NO C/O DISCOMFORT AFTER TRANSFUSION. VSS. PT CURRENTLY RESTING IN BED AT THIS TIME WHILE WATCHING TV. BED AT LOWEST POSITION. CALL LIGHT WITHIN REACH.
--- NOTE | 2020-07-01 04:56 | NUR ---
ROUSTABOUT HAND SUMMARY PT A&OX4, ABLE TO MAKE NEEDS KNOWN. PLEASANT AND COOPERATIVE TO CARE. PT MEDICATED FOR GENERALIZED BODY PAIN PER EMAR. NO C/O CP, SOB, OR N&V. AT APPROX 2012 PACKED RBC TRASFUSION COMPLETED, NO ASE NOTED, PT DENIED ANY DISCOMFORT AFTER TRANSFUSION. CONT ON 1800CC FLUID RESTRICTION, PT COMPLIANT. PT CALM AND RESTED IN BED T/O SHIFT. CALLS APPROPRIATELY FOR ASSISTANCE. BED AT LOWEST POSITION. CALL LIGHT WITHIN REACH.
[2020-07-01 06:01] LABS: BASOPHILS ABSOLUTE AUTO 0.11 K/mm3 (0.00-0.23); BASOPHILS PERCENT AUTO 1 % (0-2); EOSINOPHILS ABSOLUTE AUTO 0.06 K/mm3 (0.00-0.68); EOSINOPHILS PERCENT AUTO 0 % (0-6); Hematocrit 25.7 % (33.0-51.0); Hemoglobin 8.4 g/dL (11.5-16.0); IMMATURE GRAN PERCENT AUTO 1 % (0-1); LYMPHOCYTES ABSOLUTE AUTO 1.77 K/mm3 (0.84-5.20); LYMPHOCYTES PERCENT AUTO 12 % (21-46); MONOCYTES ABSOLUTE AUTO 1.45 K/mm3 (0.16-1.47); MONOCYTES PERCENT AUTO 10 % (4-13); Mean Corpuscular HGB 33.7 pg (26.0-34.0); Mean Corpuscular HGB Conc 32.7 g/dL (31.5-36.5); Mean Corpuscular Volume 103 fL (80-100); Mean Platelet Volume 11.8 fL (9.1-12.4); NEUTROPHILS ABSOLUTE AUTO 10.76 K/mm3 (1.96-9.15); NEUTROPHILS PERCENT AUTO 75 % (41-73); Platelet Count 240 K/mm3 (150-400); RDW Coefficient Variation 25.6 % (11.7-14.2); Red Blood Cell Count 2.49 M/mm3 (3.80-5.20); White Blood Cell Count 14.35 K/mm3 (4.00-11.30)
[2020-07-01 06:28] LABS: Alanine Aminotransfer (ALT/SGP 85 U/L (12-78); Albumin, Blood 2.2 g/dL (3.4-5.0); Albumin/Globulin Ratio 0.6 (0.8-1.8); Alk Phos 136 U/L (50-136); Anion Gap 7 mmol/L (6-16); Aspartate Aminotrans (AST/SGOT 138 U/L (12-37); Bilirubin, Total 19.6 mg/dL (0.1-1.0); Blood Urea Nitrogen 6 mg/dL (8-24); Bun/Creatinine Ratio 13.2 (12.0-20.0); CO2, Blood 28 mmol/L (21-32); Calcium, Blood 7.9 mg/dL (8.5-10.1); Chloride, Blood 103 mmol/L (98-108); Creatinine, Blood 0.46 mg/dL (0.40-1.00); Globulin, Blood 3.4 g/dL (2.2-4.0); Glomerular Filtration Rate >60 (60-); Glucose, Blood 104 mg/dL (70-99); Potassium, Blood 3.3 mmol/L (3.5-5.5); Sodium, Blood 138 mmol/L (136-145); Total Protein, Blood 5.6 g/dL (6.4-8.2)
--- NOTE | 2020-07-01 18:06 | NUR ---
07/01/20 PT assessment today documents need for commode, wheelchair and walker. full time staff interpreter care is recommended. Snf is still recommended but Herminia does not want to go out of area for snf. She was turned down by Local snf due to Alcohol history. Dr Tracy ETA discharge Sunday. Will order medical equipment on Sunday for discharge. cp
--- NOTE | 2020-07-01 20:07 | NUR ---
SHIFT SUMMARY: PAIN NOT WELL CONTROLLED, ALTERNATING MORPHINE AND TRAMADOL. C/O INTERMITTENT NAUSEA; MEDICATED PER EMAR, BUT IS TOLERATING PO INTAKE, NO EMESIS. ADVANCED FROM USING BEDPAN TO BSC, NEEDS ASSISTANCE FOR TRANSFERS. WORKED WITH PHYSICAL/OCCUPATIONAL THERAPY. COMPLIANT WITH 1500 ML FLUID RESTRICTION. UNABLE TO WEAR SCD'S D/T SEVERE PAIN IN BLE. CBG WNL, NO INSULIN COVERAGE NEEDED. NO CHANGE TO BLE EDEMA DESPITE ELEVATION OF EXTREMITIES. PLAN IS POSSIBLE D/C TOMORROW.
--- NOTE | 2020-07-02 04:02 | NUR ---
GROUNDS MAINTENANCE WORKER SUMMARY PT A&OX4, ABLE TO MAKE NEEDS KNOWN, PLEASANT AND COOPERATIVE TO CARE. MEDICATED FOR GENERALIZED BODY PAIN PER EMAR. NO C/O CP, SOB, OR N&V. CONT ON 1500 FL RESTRICTION, PT COMPLIANT. NO ACUTE CHANGES NOTED TO PATIENT THIS SHIFT. CALM AND RESTED IN BED T/O SHIFT. BED AT LOWEST POSITION. CALL LIGHT WITHIN REACH.
[2020-07-02 06:04] LABS: BASOPHILS ABSOLUTE AUTO 0.09 K/mm3 (0.00-0.23); BASOPHILS PERCENT AUTO 1 % (0-2); EOSINOPHILS ABSOLUTE AUTO 0.21 K/mm3 (0.00-0.68); EOSINOPHILS PERCENT AUTO 2 % (0-6); Hematocrit 25.3 % (33.0-51.0); Hemoglobin 8.3 g/dL (11.5-16.0); IMMATURE GRAN ABSOLUTE AUTO 0.15 K/mm3 (0.00-0.10); IMMATURE GRAN PERCENT AUTO 1 % (0-1); LYMPHOCYTES PERCENT AUTO 12 % (21-46); MONOCYTES ABSOLUTE AUTO 1.25 K/mm3 (0.16-1.47); MONOCYTES PERCENT AUTO 9 % (4-13); Mean Corpuscular HGB 33.1 pg (26.0-34.0); Mean Corpuscular HGB Conc 32.8 g/dL (31.5-36.5); Mean Corpuscular Volume 101 fL (80-100); NEUTROPHILS ABSOLUTE AUTO 10.29 K/mm3 (1.96-9.15); NEUTROPHILS PERCENT AUTO 76 % (41-73); Platelet Count 263 K/mm3 (150-400); RDW Coefficient Variation 24.7 % (11.7-14.2); RDW Standard Deviation 88.1 fL (35.1-46.3); Red Blood Cell Count 2.51 M/mm3 (3.80-5.20); White Blood Cell Count 13.59 K/mm3 (4.00-11.30)
[2020-07-02 06:41] LABS: Alanine Aminotransfer (ALT/SGP 88 U/L (12-78); Albumin, Blood 2.1 g/dL (3.4-5.0); Albumin/Globulin Ratio 0.6 (0.8-1.8); Alk Phos 139 U/L (50-136); Anion Gap 7 mmol/L (6-16); Aspartate Aminotrans (AST/SGOT 150 U/L (12-37); Bilirubin, Total 17.5 mg/dL (0.1-1.0); Blood Urea Nitrogen 5 mg/dL (8-24); Bun/Creatinine Ratio 11.2 (12.0-20.0); CO2, Blood 28 mmol/L (21-32); Calcium, Blood 7.9 mg/dL (8.5-10.1); Chloride, Blood 103 mmol/L (98-108); Creatinine, Blood 0.45 mg/dL (0.40-1.00); Globulin, Blood 3.5 g/dL (2.2-4.0); Glomerular Filtration Rate >60 (60-); Glucose, Blood 88 mg/dL (70-99); Sodium, Blood 138 mmol/L (136-145); Total Protein, Blood 5.6 g/dL (6.4-8.2)
--- NOTE | 2020-07-02 09:00 | NUR ---
PT A/O X3, STATES PAIN 10/10, GENERALIZED PAIN. ALSO IN LEGS. PRESENTS RESTING COMFORTABLY. WATCHING TV, RESP EASY UNLABORED. FOREHEAD RELAXED. TALKING IN FULL SENTENCES. ARMS RESTING AT SIDE. SITTING UP IN BED. DISCUSSED PAIN SCALE. CONTINUES TO BE 10. MEDICATED PER EMAR. H/R REG, NO MURMER NOTED. NO TELE. LUNG CLEAR UPPER, DIM BASES. RESP EASY, UNLABORED. ON R.A. BT X4 LAST BM YEST PER PT. VOIDS 1 ASST BSC. EDEMA BLE 3+. BED IN LOW POSITION, CALL LITE IN REACH CALLS APPROP
[2020-07-02] MEDS ORDERED: FOLI1 PO (15:09)
[2020-07-02] MEDS ORDERED: POTCHL20ER PO (15:10)
[2020-07-02] MEDS ORDERED: LACT10SY PO (15:10)
[2020-07-02] MEDS ORDERED: FURO40 PO (15:10)
[2020-07-02] MEDS ORDERED: SPIR25 PO (15:11)
[2020-07-02] MEDS ORDERED: TRAM50 PO (15:11)
--- NOTE | 2020-07-02 15:21 | NUR ---
07/02/20-ordered FWW from [facility] Informed [facility] of pt's desire to have services through them. Updated nurse of pt's discharge, that keila would be coming to get her and FWW was ordered through [facility] to be delivered prior to d/c. -kjw
--- NOTE | 2020-07-02 16:27 | NUR ---
DISCHARGE AND MEDS REVIEWED WITH PT. PT VERBALZED UNDERSTANDING MEDS AND INST. IV PULLED INTACT. NO TELE. PT TO HAVE FIANCE' ASSIST IN DRESSING.
--- NOTE | 2020-07-02 17:24 | NUR ---
PT WHEELED TO DOOR BY LONG AT 1710
--- NOTE | 2020-07-02 18:15 | NUR ---
ADMIT:06/11/20 DISCHARGE: DX:Y, ACUTE LIVER FAILURE CC: cpeabody ADMIT: 04/18/20 DISCHARGE: 04/21/20 DX: COVID, KETOACIDOSIS DUE TO PERSISTENT VOMITING MARTINA CALL: Call Herminia at home for martina, 1 week follow up with martina RESIDENCE: HOME CAREGIVER: ODALIS ARRINGTON, SPOUSE / PARTNER, DX: ALCOHOL INDUCED PANCREATITIS, ALCOHOLISM, COVID, ALCOHOLIC HEPATITIS DME: Front wheel walker, commode, wheelchair. Home health: [facility] for nurse, pt, ot , bathaid, socialservices, s/w ruth, confirmed referral. SUMMARY: 07/02/20-[facility] Informed [facility] of pt's desire to have services through them. Updated nurse of pt's discharge, that fiance would be coming to get her and FWW was ordered through [facility] to be delivered prior to d/c. -kjw Discussed transition of care phone follow up Sunday or Sunday. 1 week follow up appointment. Gave her a brokerage broshure to help her with transportation, covered by her insurance. Left [place] discharge letter with patient. cp 07/01/20 PT assessment today documents need for commode, wheelchair and walker. inspector timers care is recommended. Snf is still recommended but Herminia does not want to go out of area for snf. She was turned down by Local snf due to Alcohol history. Dr Tracy ETA discharge Sunday. Will order medical equipment on Sunday for discharge. cp
== END 2020-07-02 17:00 | disposition home health service (06) | DRG 871 ==
LOC: ER 12:37 → ICUW 15:46 → ICUE 15:46 → PCU 06-22 18:20 → MEDS 06-25 12:56 → ENPENDDIS 07-02 13:38 → MEDS 07-02 17:00
PROVIDERS: Emergency Medicine; Family Medicine; Internal Medicine; Internal Medicine Critical Care Medicine; Internal Medicine Gastroenterology; Student in an Organized Health Care Education/Training Program; ADMIT Family Medicine
PROC: 30233N1 Transfusion of Nonautologous Red Blood Cells into Peripheral Vein, Percutaneous Approach (ICD-10-PCS; principal; 2020-06-11)
DX: A41.89 Other specified sepsis (principal); G93.41 Metabolic encephalopathy; K22.11 Ulcer of esophagus with bleeding; R40.20 Unspecified coma; D62 Acute posthemorrhagic anemia; D68.9 Coagulation defect, unspecified; E72.20 Disorder of urea cycle metabolism, unspecified; E87.0 Hyperosmolality and hypernatremia; E87.1 Hypo-osmolality and hyponatremia; E87.2 Acidosis; F10.230 Alcohol dependence with withdrawal, uncomplicated; N17.9 Acute kidney failure, unspecified; N39.0 Urinary tract infection, site not specified; Z86.16 Personal history of COVID-19; K70.40 Alcoholic hepatic failure without coma; D69.6 Thrombocytopenia, unspecified; E87.6 Hypokalemia; E87.70 Fluid overload, unspecified; E88.09 Other disorders of plasma-protein metabolism, not elsewhere classified; F32.9 Major depressive disorder, single episode, unspecified; F41.9 Anxiety disorder, unspecified; K21.00 Gastro-esophageal reflux disease with esophagitis, without bleeding; K70.11 Alcoholic hepatitis with ascites; Z87.891 Personal history of nicotine dependence; D53.9 Nutritional anemia, unspecified
CPT/HCPCS: 0241U; 36415; 36430; 51702; 70450; 71045; 74177; 76700; 80048; 80053; 80074; 80076; 81001; 81025; 82140; 82570; 82607; 82746; 82947; 83605; 83735; 83930; 84100; 84300; 85014; 85018; 85025; 85610; 85730; 86850; 86900; 86901; 86923; 87040; 87086; 92523; 92526; 92610; 93005; 93010; 96361-59; 96365-59; 96375-59; 96376; 97110; 97112; 97162; 97166; 97168; 97530; 97535; 99285-25; A9270; C1751; C9113; G0480; J0132; J0696; J1940; J2060; J2270; J2354; J2405; J3411; J3430; J3475; J3480; J7030; J7042; J7050; J7060; J7070; P9016; P9046; P9612; Q9967

== ENCOUNTER 2020-07-29 18:59 | Inpatient (IN) | payer OTHER ==
[~2020-07-29] VITALS: Ht 167.6 cm; Wt 66.5 kg
[~2020-07-29 18:59] MED LIST changes: +Carafate1 GM/10 ML PO; +FURO40 PO; +HYDHCL25 PO; +LACT10SY PO; +POTCHL20ER PO; +SPIR25 PO; +TESSALON PERLE100 MG PO; +TRAM50 PO; +Ventolin/Prove6.7 GM INH
[2020-07-29 19:40] LABS: BASOPHILS ABSOLUTE AUTO 0.09 K/mm3 (0.00-0.23); BASOPHILS PERCENT AUTO 0 % (0-2); EOSINOPHILS ABSOLUTE AUTO 0.01 K/mm3 (0.00-0.68); EOSINOPHILS PERCENT AUTO 0 % (0-6); Hematocrit 26.2 % (33.0-51.0); Hemoglobin 9.1 g/dL (11.5-16.0); IMMATURE GRAN ABSOLUTE AUTO 0.17 K/mm3 (0.00-0.10); IMMATURE GRAN PERCENT AUTO 1 % (0-1); LYMPHOCYTES ABSOLUTE AUTO 2.59 K/mm3 (0.84-5.20); LYMPHOCYTES PERCENT AUTO 11 % (21-46); MONOCYTES ABSOLUTE AUTO 1.44 K/mm3 (0.16-1.47); MONOCYTES PERCENT AUTO 6 % (4-13); Mean Corpuscular HGB 31.1 pg (26.0-34.0); Mean Corpuscular HGB Conc 34.7 g/dL (31.5-36.5); Mean Corpuscular Volume 89 fL (80-100); Mean Platelet Volume 9.3 fL (9.1-12.4); NEUTROPHILS ABSOLUTE AUTO 18.38 K/mm3 (1.96-9.15); NEUTROPHILS PERCENT AUTO 81 % (41-73); Platelet Count 243 K/mm3 (150-400); RDW Coefficient Variation 18.6 % (11.7-14.2); RDW Standard Deviation 59.7 fL (35.1-46.3); Red Blood Cell Count 2.93 M/mm3 (3.80-5.20); White Blood Cell Count 22.68 K/mm3 (4.00-11.30)
[2020-07-29 19:57] LABS: Alanine Aminotransfer (ALT/SGP 45 U/L (12-78); Albumin, Blood 1.6 g/dL (3.4-5.0); Albumin/Globulin Ratio 0.2 (0.8-1.8); Alk Phos 153 U/L (50-136); Anion Gap 12 mmol/L (6-16); Aspartate Aminotrans (AST/SGOT 110 U/L (12-37); Bilirubin, Total 13.8 mg/dL (0.1-1.0); Blood Urea Nitrogen 8 mg/dL (8-24); Bun/Creatinine Ratio 9.2 (12.0-20.0); CO2, Blood 25 mmol/L (21-32); Calcium, Blood 8.4 mg/dL (8.5-10.1); Chloride, Blood 90 mmol/L (98-108); Creatinine, Blood 0.87 mg/dL (0.40-1.00); Globulin, Blood 6.6 g/dL (2.2-4.0); Glomerular Filtration Rate >60 (60-); Glucose, Blood 114 mg/dL (70-99); Potassium, Blood 2.5 mmol/L (3.5-5.5); Sodium, Blood 127 mmol/L (136-145); Total Protein, Blood 8.2 g/dL (6.4-8.2)
[2020-07-30 00:08] LABS: International Normalized Ratio 2.77
[2020-07-30 01:04] LABS: Ethanol (Alcohol), Blood, Med <3 mg/dL; Troponin I <0.015 ng/mL (0.000-0.040)
[2020-07-30 02:50] LABS: Albumin, Blood 1.4 g/dL (3.4-5.0); Lactate Dehydrogenase (Ld),Bld 184 U/L (100-240)
[2020-07-30 04:41] LABS: Hematocrit 21.6 % (33.0-51.0); Hemoglobin 7.4 g/dL (11.5-16.0); Mean Corpuscular HGB 30.3 pg (26.0-34.0); Mean Corpuscular HGB Conc 34.3 g/dL (31.5-36.5); Mean Corpuscular Volume 89 fL (80-100); Mean Platelet Volume 9.3 fL (9.1-12.4); Platelet Count 210 K/mm3 (150-400); RDW Coefficient Variation 18.1 % (11.7-14.2); RDW Standard Deviation 57.8 fL (35.1-46.3); Red Blood Cell Count 2.44 M/mm3 (3.80-5.20); White Blood Cell Count 23.35 K/mm3 (4.00-11.30)
[2020-07-30 05:04] LABS: Albumin, Blood 1.4 g/dL (3.4-5.0); Albumin/Globulin Ratio 0.3 (0.8-1.8); Bilirubin, Total 11.7 mg/dL (0.1-1.0); Bun/Creatinine Ratio 8.5 (12.0-20.0); Calcium, Blood 8.2 mg/dL (8.5-10.1); Creatinine, Blood 1.18 mg/dL (0.40-1.00); Globulin, Blood 5.4 g/dL (2.2-4.0); Potassium, Blood 3.7 mmol/L (3.5-5.5); Total Protein, Blood 6.8 g/dL (6.4-8.2)
[2020-07-30 06:03] LABS: Source, Urine Clean Catch
[2020-07-30 07:01] LABS: Appearance, Urine Hazy (Clear); Blood, Urine 2+ (Neg); Color, Urine Amber (P-Yellow); Glucose Qualitative, Urine Neg (Neg); Ketones, Urine 1+ (Neg); Leukocyte Esterase, Urine 2+ (Neg); Nitrite, Urine Pos (Neg); Protein, Urine 2+ (Neg); Urobilinogen, Urine 2+ (Normal)
[2020-07-30 07:12] LABS: Bilirubin, Urine 3+ (Neg)
[2020-07-30 07:17] LABS: Squamous Epithelial Cells Mod /hpf (Few)
[2020-07-30 07:18] LABS: Bacteria Mod /hpf; Calcium Oxalate Crystals Few /hpf
--- NOTE | 2020-07-30 07:42 | NUR ---
SHIFT SUMMARY RECIEVED REPORT FROM SRIKANTH UREÑA, ED @ 4895. ARRIVED TO MEDICAL UNIT VIA STRETCHER @ 8463. MODERATE ASSISTANCE REQUIRED WITH TRANSFER TO BED FROM [facility]. ORIENTED TO ROOM AND CALL SYSTEM. A/O, ABLE TO MAKE NEEDS KNOWN. COOPERATIVE WITH CARE. CALLS AND ANSWERS QUESTIONS APPROPRIATELY. C/O PAIN/DISCOMFORT TO ABDOMEN. LACTIC CAME BACK ELEVATED; ON-CALL PROVIDER ORDERED LR @ 125 ML/HR. COMPLETED K+ RIDERS. ABLE TO OBTAIN URINE SAMPLE; SENT TO LAB. STATES VERY TIRED. TELE RUNNING NSR IN 90s. VSS/AFEBRILE. NO ACUTE CHANGES NOTED SINCE ARRIVAL. BED REMAINS IN LOWEST POSITION; ALARM ON. CALL LIGHT AND BELONGINGS WITHIN REACH. CONTINUE WITH CURRENT PLAN OF CARE. REPORT GIVEN TO ONCOMING RN.
--- NOTE | 2020-07-30 08:09 | NUR ---
INR 2.77, [facility] PARACENTESIS PATIENT HAS SCHEDULED US GUIDED PARACENTESIS BUT INR IS NOTED ABOVE. PER US TECH, INR NEEDS TO BE BELOW 2. RECEIVED T.O. FROM DR. COSBY TO GIVE 4 UNITS OF FFP AND RECHECK INR 15 MINUTES POST INFUSION. ORDERS UPDATED, US TECH NOTIFIED OF PLAN TO ADMINISTER. WILL KEEP US INFORMED.
--- NOTE | 2020-07-30 10:22 | NUR ---
CLEAR LIQUID PATIENT IS TEARFUL AND WANTING TO CHOOSE ITEMS FOR LUNCH. DISCUSSED WITH Mariposa STEWART RECEIVED TO INITATE CLEAR LIQUID DIET AFTER PARACENTESIS TODAY. ORDER UPDATED.
--- NOTE | 2020-07-30 11:21 | NUR ---
Advance Directive(AD) education/Spiritual care visit conducted. Patient has an AD on her table and so I ask about it and she states that her RN went over it with her and she has not had a chance to look at it and has not questions about it yet. The conversation shifts to patient's health and the lifestyle changes that she needs to make if she is to live. We talk about support systems and luly and the importance of honesty moving forward. I normalize her struggle and provide therapeutic listening and prayer. Patient responds well and shows signs of restored luly. I will continue to remain available to patient and family.
[2020-07-30 12:41] LABS: Automated BF WBC Count 0.044 K/mm3 (0-999); Body Fluid WBC Count 44 /mm3 (0-999)
[2020-07-30 12:50] LABS: Albumin, Body Fluid 0.3 g/dL
[2020-07-30 12:50] LABS: International Normalized Ratio 2.11; Prothrombin Time Results 21.6 Sec (9.7-11.5)
[2020-07-30 12:54] LABS: Glucose, Body Fluid 86 mg/dL
[2020-07-30 13:00] LABS: pH, Body Fluid 7.5
[2020-07-30 13:02] LABS: RBC Count, Body Fluid 42 /mm3 (0-0)
[2020-07-30 13:05] LABS: Protein, Body Fluid 1.2 g/dL
[2020-07-30 13:07] LABS: Lactate Dehydrogenase, Body Fl 30 U/L
[2020-07-30 13:14] LABS: Appearance, Body Fluid Clear (Clear); Color, Body Fluid L Yellow (None-Yellow); Total Cell Count, Body Fluid 100
--- NOTE | 2020-07-30 13:45 | NUR ---
SOFT DIET RECEIVED T.O. FROM DR. COSBY TO CHANGE CLEAR LIQUID DIET TO SOFT DIET WITH LOW RESIDUE AND LOW FAT. ORDER UPDATED. MENU ORDERED FOR PATIENT.
--- NOTE | 2020-07-30 15:40 | NUR ---
ADMIT: 07/29/20 DISCHARGE: DX: Acute alcoholic hepatitis CC: [email or web address] ADMIT:06/11/20 DISCHARGE: DX:Y, ACUTE LIVER FAILURE CC: CPEABODY ADMIT: 04/18/20 DISCHARGE: 04/21/20 DX: COVID, KETOACIDOSIS DUE TO PERSISTENT VOMITING MARTINA CALL: CALL ANDRES AT HOME FOR MARTINA RESIDENCE: home CAREGIVER: ODALIS ARRINGTON, SPOUSE / PARTNER, DX: alcohol-induced acute pancreatitis, alcoholism, anxiety, see list DME: FRONT WHEEL WALKER, COMMODE, WHEELCHAIR. CCM: HOME HEALTH: [facility]- 2020 ( [facility] FOR NURSE, PT, OT , BATHAID, SOCIALSERVICES, S/W JAGRUTI, CONFIRMED REFERRAL.) SUMMARY: Admit: 07/29/20 07/30/20- per chart review with Dr. Lund, pt is here due to sepsis. She will have a CT scan of abdomen to look for source of infection. He reports that pt has not be drinking since her last visit. He plans on the pt staying through the weekend. -lois
--- NOTE | 2020-07-30 18:00 | NUR ---
Shift Summary A/Ox4, pleasant and cooperative. Calls appropriately for needs. Up c 1p assist to bathroom. Urine and skin are yellow, patient has liver disease r/t alcohol abuse. BP is hypotensive, patient c/o minimal dizziness. NS @ 50, Clinimix @ 50, both running concurrent. Medicated for abdominal pain x 1 with good effect. No bowel movements today despite lactulose given. Paracentesis completed with 2.5 L removed, albumin given post procedure. Remains weak in BLE. Tele: SR 90's. 2 units of FFP given preprocedure. No signs of excessive bleeding from insertion site. WCTM.
[2020-07-31 04:18] LABS: BASOPHILS PERCENT AUTO 1 % (0-2); EOSINOPHILS PERCENT AUTO 1 % (0-6); Hematocrit 20.2 % (33.0-51.0); Hemoglobin 6.9 g/dL (11.5-16.0); IMMATURE GRAN ABSOLUTE AUTO 0.14 K/mm3 (0.00-0.10); IMMATURE GRAN PERCENT AUTO 1 % (0-1); LYMPHOCYTES ABSOLUTE AUTO 2.21 K/mm3 (0.84-5.20); LYMPHOCYTES PERCENT AUTO 12 % (21-46); MONOCYTES ABSOLUTE AUTO 1.33 K/mm3 (0.16-1.47); MONOCYTES PERCENT AUTO 7 % (4-13); Mean Corpuscular HGB 30.8 pg (26.0-34.0); Mean Corpuscular HGB Conc 34.2 g/dL (31.5-36.5); Mean Corpuscular Volume 90 fL (80-100); Mean Platelet Volume 9.3 fL (9.1-12.4); NEUTROPHILS ABSOLUTE AUTO 14.31 K/mm3 (1.96-9.15); NEUTROPHILS PERCENT AUTO 79 % (41-73); Platelet Count 172 K/mm3 (150-400); RDW Coefficient Variation 18.4 % (11.7-14.2); RDW Standard Deviation 60.1 fL (35.1-46.3); Red Blood Cell Count 2.24 M/mm3 (3.80-5.20); White Blood Cell Count 18.19 K/mm3 (4.00-11.30)
[2020-07-31 04:35] LABS: Albumin, Blood 1.8 g/dL (3.4-5.0); Albumin/Globulin Ratio 0.4 (0.8-1.8); Bilirubin, Total 9.9 mg/dL (0.1-1.0); Bun/Creatinine Ratio 9.2 (12.0-20.0); Calcium, Blood 8.3 mg/dL (8.5-10.1); Creatinine, Blood 1.09 mg/dL (0.40-1.00); Globulin, Blood 4.6 g/dL (2.2-4.0); Magnesium, Blood 2.3 mg/dL (1.6-2.4); Phosphorus, Blood 3.2 mg/dL (2.5-4.9); Potassium, Blood 3.4 mmol/L (3.5-5.5); Total Protein, Blood 6.4 g/dL (6.4-8.2)
--- NOTE | 2020-07-31 07:24 | NUR ---
SHIFT SUMMARY TELE ST T/O SHIFT- UP TO 130'-150'S WHILE PT UP TO BR, MEDICATED FOR PAIN & NAUSEA, FEBRILE T/O NIGHT (ICE PAKS), CALL TO MD (ORDERS ENTERED & RESULTS REPORTED TO MD, PT BEDRESTING & AFEBRILE AT THIS TIME, REPORT GIVEN TO DAY RN.
--- NOTE | 2020-07-31 16:44 | NUR ---
PATIENT A/OX4, UP WITH 1 ASSIST AND FWW TO RESTROOM. LACTIC ACID REMAINS ELEVATED AT 3.5, CLINIMIX AND NS RUNNING. AFEBRILE THIS SHIFT. 1 UNIT OF BLOOD COMPLETED THIS AM. PATIENT RECEIVED ALBUMIN AND POTASSIUM WAS REPLACED. VSS, ON RA. ST AT 105 ON TELE THIS EVENING. TRAMADOL GIVEN X1 TO TREAT ABDOMINAL PAIN. XANAX STARTED PRN TO TREAT ANXIETY. PATIENT TOLERATING DIET AND DENIED ANY NAUSEA TODAY. SKIN JAUNDICED, BUT INTACT. COOPERATIVE WITH CARE AND ABLE TO MAKE NEEDS KNOWN.
--- NOTE | 2020-08-01 05:30 | NUR ---
SHIFT SUMMARY NO ACUTE CHANGES THIS SHIFT, MEDICATED FOR ANXIETY & PAIN X1, NO OTHER C/O ANY KIND, UP W/1 ASSIST TO BR, SLEPT MOST OF THE NIGHT, BEDRESTING AT THIS TIME, CALL LIGHT IN REACH, WILL CONT TO MONITOR UNTIL REPORT GIVEN TO DAY RN.
[2020-08-01 05:37] LABS: BASOPHILS ABSOLUTE AUTO 0.15 K/mm3 (0.00-0.23); BASOPHILS PERCENT AUTO 1 % (0-2); EOSINOPHILS ABSOLUTE AUTO 0.13 K/mm3 (0.00-0.68); EOSINOPHILS PERCENT AUTO 1 % (0-6); Hematocrit 22.3 % (33.0-51.0); Hemoglobin 7.7 g/dL (11.5-16.0); IMMATURE GRAN ABSOLUTE AUTO 0.17 K/mm3 (0.00-0.10); IMMATURE GRAN PERCENT AUTO 1 % (0-1); LYMPHOCYTES ABSOLUTE AUTO 2.37 K/mm3 (0.84-5.20); LYMPHOCYTES PERCENT AUTO 13 % (21-46); MONOCYTES ABSOLUTE AUTO 1.23 K/mm3 (0.16-1.47); MONOCYTES PERCENT AUTO 7 % (4-13); Mean Corpuscular HGB 31.2 pg (26.0-34.0); Mean Corpuscular HGB Conc 34.5 g/dL (31.5-36.5); Mean Corpuscular Volume 90 fL (80-100); NEUTROPHILS ABSOLUTE AUTO 14.93 K/mm3 (1.96-9.15); NEUTROPHILS PERCENT AUTO 79 % (41-73); Platelet Count 176 K/mm3 (150-400); RDW Coefficient Variation 17.6 % (11.7-14.2); RDW Standard Deviation 57.6 fL (35.1-46.3); Red Blood Cell Count 2.47 M/mm3 (3.80-5.20); White Blood Cell Count 18.98 K/mm3 (4.00-11.30)
[2020-08-01 06:07] LABS: Alanine Aminotransfer (ALT/SGP 28 U/L (12-78); Albumin, Blood 2.2 g/dL (3.4-5.0); Albumin/Globulin Ratio 0.5 (0.8-1.8); Alk Phos 88 U/L (50-136); Anion Gap 9 mmol/L (6-16); Aspartate Aminotrans (AST/SGOT 68 U/L (12-37); Bilirubin, Total 9.3 mg/dL (0.1-1.0); Blood Urea Nitrogen 8 mg/dL (8-24); Bun/Creatinine Ratio 10.1 (12.0-20.0); CO2, Blood 24 mmol/L (21-32); Calcium, Blood 8.3 mg/dL (8.5-10.1); Chloride, Blood 104 mmol/L (98-108); Creatinine, Blood 0.79 mg/dL (0.40-1.00); Globulin, Blood 4.1 g/dL (2.2-4.0); Glomerular Filtration Rate >60 (60-); Glucose, Blood 138 mg/dL (70-99); Potassium, Blood 3.3 mmol/L (3.5-5.5); Sodium, Blood 137 mmol/L (136-145); Total Protein, Blood 6.3 g/dL (6.4-8.2)
--- NOTE | 2020-08-01 17:26 | NUR ---
PATIENT A/OX4, UP WITH FWW AND SBA TO RESTROOM. TOLERATING SMALL AMOUNTS OF SOFT DIET. TRAMODOL GIVEN X1 FOR PAIN WITH STATED MINIMAL RELIEF. PATIENT SLEPT BETTER THIS SHIFT. VSS, AFEBRILE TODAY. NS D/C'D, NUT CLINIMIX CONTINUES AT 50ML/HR. DENIES ANY NAUSEA TODAY. PLAN IS FOR ANOTHER PARACENTESIS IN AM. FFP TO BE GIVEN PRIOR TO PROCEDURE. STARTED ON PROPRANOLOL TODAY AND ON HR HAS COME DOWN TO THE 80'S AND REMAINS IN SR ON TELE. COOPERATIVE WITH CARE AND ABLE TO MAKE NEEDS KNOWN.
--- NOTE | 2020-08-02 06:46 | NUR ---
SHIFT SUMMARY NO ACUTE CHANGES THIS SHIFT, MEDICATED PER MAR FOR PAIN, ANXIETY, SLEPT T/O THE NIGHT, NPO AT MIDNIGHT FOR PROCEDURE, FFP INFUSING, WILL CONT TO MONITOR UNTIL REPORT GIVEN TO DAY RN.
[2020-08-02 09:48] LABS: BASOPHILS ABSOLUTE AUTO 0.11 K/mm3 (0.00-0.23); BASOPHILS PERCENT AUTO 1 % (0-2); EOSINOPHILS PERCENT AUTO 1 % (0-6); Hematocrit 21.5 % (33.0-51.0); Hemoglobin 7.2 g/dL (11.5-16.0); IMMATURE GRAN PERCENT AUTO 1 % (0-1); LYMPHOCYTES PERCENT AUTO 13 % (21-46); MONOCYTES ABSOLUTE AUTO 1.49 K/mm3 (0.16-1.47); MONOCYTES PERCENT AUTO 9 % (4-13); Mean Corpuscular HGB Conc 33.5 g/dL (31.5-36.5); Mean Corpuscular Volume 93 fL (80-100); Mean Platelet Volume 9.4 fL (9.1-12.4); NEUTROPHILS ABSOLUTE AUTO 12.13 K/mm3 (1.96-9.15); NEUTROPHILS PERCENT AUTO 75 % (41-73); Platelet Count 144 K/mm3 (150-400); RDW Coefficient Variation 17.9 % (11.7-14.2); RDW Standard Deviation 59.8 fL (35.1-46.3); Red Blood Cell Count 2.32 M/mm3 (3.80-5.20); White Blood Cell Count 16.13 K/mm3 (4.00-11.30)
[2020-08-02 10:01] LABS: International Normalized Ratio 1.79; Prothrombin Time Results 18.5 Sec (9.7-11.5)
[2020-08-02 10:11] LABS: Alanine Aminotransfer (ALT/SGP 28 U/L (12-78); Albumin, Blood 2.7 g/dL (3.4-5.0); Albumin/Globulin Ratio 0.7 (0.8-1.8); Alk Phos 71 U/L (50-136); Anion Gap 9 mmol/L (6-16); Aspartate Aminotrans (AST/SGOT 56 U/L (12-37); Bilirubin, Total 7.2 mg/dL (0.1-1.0); Blood Urea Nitrogen 8 mg/dL (8-24); Bun/Creatinine Ratio 12.6 (12.0-20.0); CO2, Blood 26 mmol/L (21-32); Calcium, Blood 8.8 mg/dL (8.5-10.1); Chloride, Blood 105 mmol/L (98-108); Creatinine, Blood 0.64 mg/dL (0.40-1.00); Globulin, Blood 3.9 g/dL (2.2-4.0); Glomerular Filtration Rate >60 (60-); Glucose, Blood 110 mg/dL (70-99); Potassium, Blood 3.3 mmol/L (3.5-5.5); Sodium, Blood 140 mmol/L (136-145); Total Protein, Blood 6.6 g/dL (6.4-8.2)
[2020-08-02 11:06] LABS: Automated BF WBC Count 0.095 K/mm3 (0-999); Body Fluid WBC Count 95 /mm3 (0-999)
[2020-08-02 11:19] LABS: RBC Count, Body Fluid 85 /mm3 (0-0)
[2020-08-02 11:40] LABS: Total Cell Count, Body Fluid 100
[2020-08-02 11:41] LABS: Appearance, Body Fluid Clear (Clear); Color, Body Fluid Yellow (None-Yellow)
--- NOTE | 2020-08-02 15:30 | NUR ---
08/02/20- PER CHART REVIEW, PT HAD PARACENTESIS DONE ON 07/30 AND 2.5 L WERE REMOVED. FLUID HAD ELEVATED WHITE COUNT SO PT WAS PUT ON ANTIBIOTICS DUE TO BEING FOUND SEPTIC. PT HAD ANOTHER PARACENTESIS ON 08/02/20 WITH APPROX. 2.7L REMOVED . PT HAS REPORTED THAT SHE HAS NOT DRANK ALCOHOL SINCE HER ADMISSIONS AND HAS BEEN COMPLIANT WITH MEDICATIONS. NO PLAN FOR D/C AT THIS TIME. -JURGEN
--- NOTE | 2020-08-02 18:17 | NUR ---
SHIFT SUMMARY PT RESTING QUIETLY AT START OF SHIFT, NPO FOR PARACENTESIS LATER THIS AM. 2ND BAG OF FFP INFUSING PER ORDERS, 3RD UNIT READY SLIIP SENT TO BLOOD BANK AT START OF SHIFT. PT HAD LABS DRAWN 40 MINS AFTER 3RD BAG COMPLETE. AFTER LABS REVIEWED BY IMAGING, PT WENT DOWN FOR PARACENTESIS. PER REPORT, 2.7L FLUID REMOVED. DR KIM HERE TO SEE PT TODAY. PLAN OF CARE DISCUSSED. NEW ORDERS PLACED. IV ABX CHANGED. PT UP TO BTHRM WITH 1P SBA USING FWW FOR SAFETY, CALLING FOR ASSIST WHEN NEEDING TO GET UP. PT IS WEAK AND SLIGHTLY UNSTEADY W/O FWW. VOIDING ASHU COLORED URINE. ADMITTED FOR ALCOHOLIC HEPATITIS. ALBUMIN AND IV ABX INFUSED PER ORDERS IN LFA IV. CLINIMIX INFUSING IN RFA IV. PO INTAKE REMAINS DECREASED TO PRESENT. VISITOR TO THIS AFTERNOON. PT IS A&O, ABLE TO MAKE NEEDS KNOWN. CALL LT IN REACH.
--- NOTE | 2020-08-03 04:06 | NUR ---
SHIFT SUMMARY ADMITTED FOR ACUTE ALCOHOLIC HEPATITIS. FULL CODE. CLINIMIX INFUSING ORDERED. IV ANTIBIOTICS ARE SCHEDULED, ARE ALBUMIN INFUSIONS. PARACENTESIS PERFORMED W/2.7 L OUT. CULTURES SENT. LACTIC ACID CRITICAL HIGH YESTERDAY @ 2.6, AWAITING MORNING LABS. 1 ASSIST W/FWW - BRP. NAUSEA MEDICINE GIVEN ONE TIME THIS SHIFT
[2020-08-03 05:17] LABS: BASOPHILS PERCENT AUTO 1 % (0-2); EOSINOPHILS ABSOLUTE AUTO 0.16 K/mm3 (0.00-0.68); EOSINOPHILS PERCENT AUTO 1 % (0-6); Hematocrit 19.5 % (33.0-51.0); Hemoglobin 6.4 g/dL (11.5-16.0); IMMATURE GRAN ABSOLUTE AUTO 0.13 K/mm3 (0.00-0.10); IMMATURE GRAN PERCENT AUTO 1 % (0-1); LYMPHOCYTES ABSOLUTE AUTO 2.15 K/mm3 (0.84-5.20); LYMPHOCYTES PERCENT AUTO 13 % (21-46); MONOCYTES ABSOLUTE AUTO 1.58 K/mm3 (0.16-1.47); MONOCYTES PERCENT AUTO 10 % (4-13); Mean Corpuscular HGB 30.6 pg (26.0-34.0); Mean Corpuscular HGB Conc 32.8 g/dL (31.5-36.5); Mean Corpuscular Volume 93 fL (80-100); Mean Platelet Volume 9.3 fL (9.1-12.4); NEUTROPHILS ABSOLUTE AUTO 12.44 K/mm3 (1.96-9.15); NEUTROPHILS PERCENT AUTO 75 % (41-73); Platelet Count 144 K/mm3 (150-400); RDW Coefficient Variation 17.9 % (11.7-14.2); RDW Standard Deviation 59.8 fL (35.1-46.3); Red Blood Cell Count 2.09 M/mm3 (3.80-5.20); White Blood Cell Count 16.56 K/mm3 (4.00-11.30)
[2020-08-03 05:42] LABS: Alanine Aminotransfer (ALT/SGP 21 U/L (12-78); Albumin, Blood 2.8 g/dL (3.4-5.0); Albumin/Globulin Ratio 0.8 (0.8-1.8); Alk Phos 59 U/L (50-136); Anion Gap 10 mmol/L (6-16); Aspartate Aminotrans (AST/SGOT 50 U/L (12-37); Bilirubin, Total 6.8 mg/dL (0.1-1.0); Blood Urea Nitrogen 9 mg/dL (8-24); Bun/Creatinine Ratio 13.5 (12.0-20.0); CO2, Blood 23 mmol/L (21-32); Calcium, Blood 8.6 mg/dL (8.5-10.1); Chloride, Blood 106 mmol/L (98-108); Creatinine, Blood 0.67 mg/dL (0.40-1.00); Globulin, Blood 3.6 g/dL (2.2-4.0); Glomerular Filtration Rate >60 (60-); Glucose, Blood 134 mg/dL (70-99); Magnesium, Blood 1.9 mg/dL (1.6-2.4); Phosphorus, Blood 3.1 mg/dL (2.5-4.9); Potassium, Blood 3.4 mmol/L (3.5-5.5); Sodium, Blood 139 mmol/L (136-145); Total Protein, Blood 6.4 g/dL (6.4-8.2)
--- NOTE | 2020-08-03 17:25 | NUR ---
SHIFT SUMMARY PT RESTING QUIETLY AT START OF SHIFT. NEW ORDERS RECEIVED TO TX 1 UNIT PRBC'S, FOR HGB OF 6.4. PER LAB, BLOOD SLIP IN CHART WAS , THOUGH NOT UNTIL BRYCE KWON. BAKESHOP CLEANER HERE TO OBTAIN TYPE AND CROSS. NEW SLIP SENT WHEN COMPLETE. PT UP TO BTHRM SEVERAL TIMES WITH LOOSE TO LIQUID STOOLS. LACTULOSE HELD PER EMAR. CLINIMIX INFUSING TO RAC. PT GETTING TIRED OF HAVING BOTH ARMS HOOKED UP TO IV TUBING; THE OTHER FOR ABX, ALBUMIN, AND BLOOD PRODUCTS. PT REPORTED THAT SHE WAS UNABLE TO EAT WITH EITHER ARM W/O ALARMING IV PUMPS. DR KIM NOTIFIED FOR ORDERS TO D/C CLINIMIX PER PT REQUEST. PT HAS BEEN MUCH HAPPIER WITHOUT BEING TIED UP TO PUMPS. PT'S S/O HERE TO VISIT THIS AFTERNOON. CXR ORDERED AND PT TAKEN DOWN TO IMAGING VIA W/C AND BACK. DENIED FURTHER NEEDS. CALL LT IN REACH. ABLE TO MAKE NEEDS KNOWN.
--- NOTE | 2020-08-03 21:31 | NUR ---
08/03/20 Met with Herminia today, Home alone when fiance at work, she can make it to the bathroom and kitchen to prepare snacks. Has been working with PT and OT, concerned she will not get back to her previous baseline before last hospitalization. Discussed depression. Suggested she talk to Dr Lomax about her concerns. Discharge plan remains return home with resumption of home health. No additional DME items needed at this time. No ETA for discharge from Dr Lomax. cp
--- NOTE | 2020-08-04 04:16 | NUR ---
SHIFT SUMMARY ADMITTED FOR ACUTE ALCOHOLIC HEPATITIS. FULL CODE. FOUND TO HAVE BACTERIAL PERITONITIS. CHEST XRAY REVEALS PLEURAL EFFUSIONS. PLAN IS FOR IV ANTIBIOTICS AND IV DIURETICS. PT HAS CHRONIC ANEMIA, PRBC'S AND PLATELETS HAVE BEEN TRANSFUSED. SEVERAL LOOSE BM'S THIS SHIFT REPORTED, LACTULOSE HELD. ANXIETY MEDICATION AND PAIN MEDICATION GIVEN ONCE THIS SHIFT.
[2020-08-04 04:58] LABS: BASOPHILS ABSOLUTE AUTO 0.15 K/mm3 (0.00-0.23); BASOPHILS PERCENT AUTO 1 % (0-2); EOSINOPHILS ABSOLUTE AUTO 0.12 K/mm3 (0.00-0.68); EOSINOPHILS PERCENT AUTO 1 % (0-6); Hematocrit 24.1 % (33.0-51.0); Hemoglobin 8.1 g/dL (11.5-16.0); IMMATURE GRAN ABSOLUTE AUTO 0.17 K/mm3 (0.00-0.10); IMMATURE GRAN PERCENT AUTO 1 % (0-1); LYMPHOCYTES ABSOLUTE AUTO 2.45 K/mm3 (0.84-5.20); LYMPHOCYTES PERCENT AUTO 14 % (21-46); MONOCYTES ABSOLUTE AUTO 1.84 K/mm3 (0.16-1.47); MONOCYTES PERCENT AUTO 10 % (4-13); Mean Corpuscular HGB 30.9 pg (26.0-34.0); Mean Corpuscular HGB Conc 33.6 g/dL (31.5-36.5); Mean Corpuscular Volume 92 fL (80-100); NEUTROPHILS ABSOLUTE AUTO 13.09 K/mm3 (1.96-9.15); NEUTROPHILS PERCENT AUTO 74 % (41-73); Platelet Count 140 K/mm3 (150-400); RDW Coefficient Variation 17.8 % (11.7-14.2); RDW Standard Deviation 58.1 fL (35.1-46.3); Red Blood Cell Count 2.62 M/mm3 (3.80-5.20); White Blood Cell Count 17.82 K/mm3 (4.00-11.30)
[2020-08-04 05:14] LABS: Alanine Aminotransfer (ALT/SGP 20 U/L (12-78); Albumin, Blood 2.8 g/dL (3.4-5.0); Albumin/Globulin Ratio 0.8 (0.8-1.8); Alk Phos 58 U/L (50-136); Anion Gap 8 mmol/L (6-16); Aspartate Aminotrans (AST/SGOT 52 U/L (12-37); Bilirubin, Total 8.1 mg/dL (0.1-1.0); Blood Urea Nitrogen 9 mg/dL (8-24); Bun/Creatinine Ratio 12.7 (12.0-20.0); CO2, Blood 25 mmol/L (21-32); Calcium, Blood 8.5 mg/dL (8.5-10.1); Chloride, Blood 106 mmol/L (98-108); Creatinine, Blood 0.71 mg/dL (0.40-1.00); Globulin, Blood 3.5 g/dL (2.2-4.0); Glomerular Filtration Rate >60 (60-); Glucose, Blood 97 mg/dL (70-99); Potassium, Blood 3.7 mmol/L (3.5-5.5); Sodium, Blood 139 mmol/L (136-145); Total Protein, Blood 6.3 g/dL (6.4-8.2)
--- NOTE | 2020-08-04 08:45 | NUR ---
r/t bp. hold all bp meds and lasix this am.
--- NOTE | 2020-08-04 16:15 | NUR ---
PT PLEASANT TODAY. NO C/O PAIN REPORTED. DR KIM IN TO SEE PT TODAY. SOME MEDS CHANGED. PT FAMILYL IN TO SEE THIS AFT. PT SMILED TO SEE VISITOR. NO NEW CONCERNS NOTED. BED IN LOW POSITION, CALL LITE IN REACH, CALLS APPROP
--- NOTE | 2020-08-04 18:10 | NUR ---
Spiritual care note: Herminia and I met on her previous hospitalization. She appears much better and verbalizes understanding that she must quit drinking or . She tells me that she has refrained from drinking for 3 months. Her fiance still drinks however. I offered gentle certified alcohol drug counselor and recomended 12 step program. Provided information on AA hotline and list of every AA meeting in [facility]. She did not appear interested, but took the information. Surgical Aides Teacher services will remain available.
[2020-08-05 05:01] LABS: BASOPHILS PERCENT AUTO 1 % (0-2); EOSINOPHILS ABSOLUTE AUTO 0.27 K/mm3 (0.00-0.68); EOSINOPHILS PERCENT AUTO 2 % (0-6); Hematocrit 23.1 % (33.0-51.0); Hemoglobin 7.7 g/dL (11.5-16.0); IMMATURE GRAN PERCENT AUTO 1 % (0-1); LYMPHOCYTES ABSOLUTE AUTO 2.15 K/mm3 (0.84-5.20); LYMPHOCYTES PERCENT AUTO 15 % (21-46); MONOCYTES ABSOLUTE AUTO 1.67 K/mm3 (0.16-1.47); MONOCYTES PERCENT AUTO 11 % (4-13); Mean Corpuscular HGB 30.4 pg (26.0-34.0); Mean Corpuscular HGB Conc 33.3 g/dL (31.5-36.5); Mean Corpuscular Volume 91 fL (80-100); Mean Platelet Volume 9.8 fL (9.1-12.4); NEUTROPHILS ABSOLUTE AUTO 10.35 K/mm3 (1.96-9.15); NEUTROPHILS PERCENT AUTO 71 % (41-73); Platelet Count 141 K/mm3 (150-400); RDW Coefficient Variation 17.9 % (11.7-14.2); RDW Standard Deviation 58.8 fL (35.1-46.3); Red Blood Cell Count 2.53 M/mm3 (3.80-5.20); White Blood Cell Count 14.64 K/mm3 (4.00-11.30)
[2020-08-05 05:18] LABS: Alanine Aminotransfer (ALT/SGP 18 U/L (12-78); Albumin, Blood 2.5 g/dL (3.4-5.0); Albumin/Globulin Ratio 0.7 (0.8-1.8); Alk Phos 70 U/L (50-136); Anion Gap 8 mmol/L (6-16); Aspartate Aminotrans (AST/SGOT 49 U/L (12-37); Bilirubin, Total 7.2 mg/dL (0.1-1.0); Blood Urea Nitrogen 9 mg/dL (8-24); Bun/Creatinine Ratio 12.3 (12.0-20.0); CO2, Blood 23 mmol/L (21-32); Calcium, Blood 8.3 mg/dL (8.5-10.1); Chloride, Blood 107 mmol/L (98-108); Creatinine, Blood 0.73 mg/dL (0.40-1.00); Globulin, Blood 3.5 g/dL (2.2-4.0); Glomerular Filtration Rate >60 (60-); Glucose, Blood 132 mg/dL (70-99); Potassium, Blood 3.8 mmol/L (3.5-5.5); Sodium, Blood 138 mmol/L (136-145)
--- NOTE | 2020-08-05 05:40 | NUR ---
ADDRESSOGRAPH OPERATOR SUMMARY NO ACUTE CHANGES THIS SHIFT. PT AAOX4 AND VERY PLEASANT. STANDBY ASSIST W/ FWW WHEN OOB. DENIES PAIN, SOB, N/V. GIVEN PRN XANAX AROUND BEDTIME PT BECAME A BIT ANXIOUS AND UNABLE TO SLEEP. CONTINUES IV ABX. HGB DOWN TO 7.7 THIS AM FROM 8.1 YESTERDAY MORNING. VSS, WILL CONTINUE TO MONITOR.
[2020-08-05 13:01] LABS: Hematocrit 24.9 % (33.0-51.0); Hemoglobin 8.4 g/dL (11.5-16.0)
--- NOTE | 2020-08-05 17:31 | NUR ---
SHIFT SUMMARY- PT IS A/O, PLESANT AND COOPERATVIE. SHE IS EATING AND DRINKING WELL. SHE IS AMBULATING TO THE RESTROOM. SHE TOOK A SHOWER THIS SHIFT. SHE HAD A VISITIOR THIS AFTERNOON. HER BED IS IN THE LOW POSITION AND CALL LIGHT IS WITIN REACH.
--- NOTE | 2020-08-05 18:52 | NUR ---
SUMMARY: Admit: 07/29/20 08/04/[address] Lomax, new dx of CHF, treating and ordering echo cardiogram. ETA discharge 2-3 days. will follow for discharge planning. cp
[2020-08-05 22:31] LABS: C DIFFICILE DNA NEGATIVE (Negative)
--- NOTE | 2020-08-06 05:07 | NUR ---
SHIFT SUMMARY: BP 90/51- WITHIN PT NORMAL RANGE. AFEB. 02 97% ON RA. MED X 1 FOR ABD PAIN AND BLE PAIN. ABD TENDER THROUGHOUT, DISTENDED. PT CURRENTLY NPO EXCEPT ICE CHIPS IN PREPARATION FOR PARACENTESIS TODAY. NO ACUTE OVERNIGHT EVENTS. WCTM.
--- NOTE | 2020-08-06 15:59 | NUR ---
SHIFT SUMMARY- PT IS A/O, PLESANT AND COOPERATIVE. SHE IS EATING AND DRINKING WELL. SHE WENT THIS MORNING FOR A PARACENTISIS. DRAINED. 2.5L OF FLUID. SHE RECIEVED IV ALBUMIN THIS AFTERNOON. SHE HAD A VISITOR THIS AFTERNOON. SHE SLEPT INTERMITENTLY DURING THIS SHIFT. SHE WORKED WITH PT AND AMBULATED IN THE HALLWAY. HER BED IS IN THE LOW POSITION AND CALL LIGHT IS WITIN REACH.
[2020-08-07 05:03] LABS: BASOPHILS ABSOLUTE AUTO 0.12 K/mm3 (0.00-0.23); BASOPHILS PERCENT AUTO 1 % (0-2); EOSINOPHILS ABSOLUTE AUTO 0.14 K/mm3 (0.00-0.68); EOSINOPHILS PERCENT AUTO 1 % (0-6); Hematocrit 23.1 % (33.0-51.0); Hemoglobin 7.7 g/dL (11.5-16.0); IMMATURE GRAN ABSOLUTE AUTO 0.05 K/mm3 (0.00-0.10); IMMATURE GRAN PERCENT AUTO 0 % (0-1); LYMPHOCYTES ABSOLUTE AUTO 2.19 K/mm3 (0.84-5.20); LYMPHOCYTES PERCENT AUTO 17 % (21-46); MONOCYTES ABSOLUTE AUTO 1.33 K/mm3 (0.16-1.47); MONOCYTES PERCENT AUTO 10 % (4-13); Mean Corpuscular HGB 30.7 pg (26.0-34.0); Mean Corpuscular HGB Conc 33.3 g/dL (31.5-36.5); Mean Corpuscular Volume 92 fL (80-100); Mean Platelet Volume 9.7 fL (9.1-12.4); NEUTROPHILS ABSOLUTE AUTO 9.39 K/mm3 (1.96-9.15); NEUTROPHILS PERCENT AUTO 71 % (41-73); Platelet Count 155 K/mm3 (150-400); RDW Coefficient Variation 17.9 % (11.7-14.2); RDW Standard Deviation 58.8 fL (35.1-46.3); Red Blood Cell Count 2.51 M/mm3 (3.80-5.20); White Blood Cell Count 13.22 K/mm3 (4.00-11.30)
[2020-08-07 05:25] LABS: Alanine Aminotransfer (ALT/SGP 17 U/L (12-78); Albumin, Blood 2.3 g/dL (3.4-5.0); Albumin/Globulin Ratio 0.7 (0.8-1.8); Alk Phos 74 U/L (50-136); Anion Gap 7 mmol/L (6-16); Aspartate Aminotrans (AST/SGOT 50 U/L (12-37); Bilirubin, Total 6.6 mg/dL (0.1-1.0); Blood Urea Nitrogen 7 mg/dL (8-24); Bun/Creatinine Ratio 12.7 (12.0-20.0); CO2, Blood 24 mmol/L (21-32); Calcium, Blood 8.1 mg/dL (8.5-10.1); Chloride, Blood 108 mmol/L (98-108); Creatinine, Blood 0.55 mg/dL (0.40-1.00); Globulin, Blood 3.5 g/dL (2.2-4.0); Glomerular Filtration Rate >60 (60-); Glucose, Blood 89 mg/dL (70-99); Potassium, Blood 4.2 mmol/L (3.5-5.5); Sodium, Blood 139 mmol/L (136-145); Total Protein, Blood 5.8 g/dL (6.4-8.2)
--- NOTE | 2020-08-07 06:14 | NUR ---
PT IS A/O, IND TO BATHROOM, PARASCENTESIS PERFORMED 08/06. PT IS HOPING TO D/C HOME TODAY. PT IS JAUNDICED, MEDICATED THIS SHIFT FOR ANXIETY AND ABDOMINAL AND BILATERAL FOOT PAIN DUE TO SWELLING. PLEASANT AND COOPERATIVE WITH CARE.
--- NOTE | 2020-08-07 18:35 | NUR ---
SHIFT SUMMARY PT RESTING QUIETLY AT START OF SHIFT. PT IMPROVING AND NOW INDEPENDENT IN RM. DECLINED LACTULOSE THIS AM D/T LOOSE STOOLS. PER SHIFT REPORT, PT HAD C/O TENDERNESS AT PARACENTESIS SITE, BUT NO C/O TODAY. PT ABLE TO WORK WITH P/T AND WALK IN HALLS. DR ECHOLS IN TO SEE PT THIS AM. NEW ORDERS PLACED. PT RECEIVED ONE MORE UNIT OF PRBC'S TODAY. PT IS EATING AND DRINKING BETTER NOW AND TOLERATING IT WELL. VISITOR IN TODAY. PT TO D/C TO HOME TOMORROW. DENIED FURTHER NEEDS. CALL LT IN REACH.
[2020-08-08 05:13] LABS: BASOPHILS ABSOLUTE AUTO 0.11 K/mm3 (0.00-0.23); BASOPHILS PERCENT AUTO 1 % (0-2); EOSINOPHILS PERCENT AUTO 1 % (0-6); Hematocrit 26.5 % (33.0-51.0); Hemoglobin 8.9 g/dL (11.5-16.0); IMMATURE GRAN ABSOLUTE AUTO 0.04 K/mm3 (0.00-0.10); IMMATURE GRAN PERCENT AUTO 0 % (0-1); LYMPHOCYTES ABSOLUTE AUTO 2.02 K/mm3 (0.84-5.20); LYMPHOCYTES PERCENT AUTO 18 % (21-46); MONOCYTES ABSOLUTE AUTO 1.03 K/mm3 (0.16-1.47); MONOCYTES PERCENT AUTO 9 % (4-13); Mean Corpuscular HGB 30.5 pg (26.0-34.0); Mean Corpuscular HGB Conc 33.6 g/dL (31.5-36.5); Mean Corpuscular Volume 91 fL (80-100); Mean Platelet Volume 9.3 fL (9.1-12.4); NEUTROPHILS ABSOLUTE AUTO 7.86 K/mm3 (1.96-9.15); NEUTROPHILS PERCENT AUTO 70 % (41-73); Platelet Count 147 K/mm3 (150-400); RDW Standard Deviation 58.4 fL (35.1-46.3); Red Blood Cell Count 2.92 M/mm3 (3.80-5.20); White Blood Cell Count 11.16 K/mm3 (4.00-11.30)
[2020-08-08 05:35] LABS: Alanine Aminotransfer (ALT/SGP 17 U/L (12-78); Albumin, Blood 2.3 g/dL (3.4-5.0); Albumin/Globulin Ratio 0.6 (0.8-1.8); Alk Phos 77 U/L (50-136); Anion Gap 7 mmol/L (6-16); Aspartate Aminotrans (AST/SGOT 51 U/L (12-37); Bilirubin, Total 8.6 mg/dL (0.1-1.0); Blood Urea Nitrogen 6 mg/dL (8-24); Bun/Creatinine Ratio 11.9 (12.0-20.0); CO2, Blood 23 mmol/L (21-32); Calcium, Blood 8.3 mg/dL (8.5-10.1); Chloride, Blood 108 mmol/L (98-108); Creatinine, Blood 0.51 mg/dL (0.40-1.00); Globulin, Blood 3.7 g/dL (2.2-4.0); Glomerular Filtration Rate >60 (60-); Glucose, Blood 97 mg/dL (70-99); Potassium, Blood 4.2 mmol/L (3.5-5.5); Sodium, Blood 138 mmol/L (136-145)
[2020-08-08 05:39] LABS: Stool Occult Blood Guaiac 1 Neg (Neg)
--- NOTE | 2020-08-08 06:04 | NUR ---
PT IS A/O, UP TO RESTROOM THIS SHIFT WITH FWW, JAUNDICED, RECIEVED BLOOD YESTERDAY, AWAITING AM LABS. MEDICATED FOR ANXIETY AND FOOT PAIN FROM EDEMA.
--- NOTE | 2020-08-08 19:43 | NUR ---
SHIFT SUMMARY: NO ACUTE CAHNGES TO REPORT THIS SHIFT. PT A&O; CALM AND COOPERATIVE WITH CARE. MEDICATED FOR FEET PAIN PER EMAR. HYPOTENSIVE-DIURETICS HELD. PT UP INDEPENDENT IN ROOM. EXPECTED D/C TO HOME 08/09. REPORT GIVEN TO ONCOMING RN.
[2020-08-09 05:03] LABS: BASOPHILS ABSOLUTE AUTO 0.13 K/mm3 (0.00-0.23); BASOPHILS PERCENT AUTO 1 % (0-2); EOSINOPHILS ABSOLUTE AUTO 0.13 K/mm3 (0.00-0.68); EOSINOPHILS PERCENT AUTO 1 % (0-6); Hematocrit 26.6 % (33.0-51.0); Hemoglobin 8.8 g/dL (11.5-16.0); IMMATURE GRAN ABSOLUTE AUTO 0.03 K/mm3 (0.00-0.10); IMMATURE GRAN PERCENT AUTO 0 % (0-1); LYMPHOCYTES ABSOLUTE AUTO 2.07 K/mm3 (0.84-5.20); LYMPHOCYTES PERCENT AUTO 19 % (21-46); MONOCYTES ABSOLUTE AUTO 1.01 K/mm3 (0.16-1.47); MONOCYTES PERCENT AUTO 9 % (4-13); Mean Corpuscular HGB 30.2 pg (26.0-34.0); Mean Corpuscular HGB Conc 33.1 g/dL (31.5-36.5); Mean Corpuscular Volume 91 fL (80-100); Mean Platelet Volume 9.8 fL (9.1-12.4); NEUTROPHILS ABSOLUTE AUTO 7.56 K/mm3 (1.96-9.15); NEUTROPHILS PERCENT AUTO 69 % (41-73); Platelet Count 153 K/mm3 (150-400); RDW Standard Deviation 59.4 fL (35.1-46.3); Red Blood Cell Count 2.91 M/mm3 (3.80-5.20); White Blood Cell Count 10.93 K/mm3 (4.00-11.30)
[2020-08-09 05:26] LABS: Alanine Aminotransfer (ALT/SGP 18 U/L (12-78); Albumin, Blood 2.2 g/dL (3.4-5.0); Albumin/Globulin Ratio 0.6 (0.8-1.8); Alk Phos 79 U/L (50-136); Anion Gap 7 mmol/L (6-16); Aspartate Aminotrans (AST/SGOT 56 U/L (12-37); Bilirubin, Total 7.1 mg/dL (0.1-1.0); Blood Urea Nitrogen 5 mg/dL (8-24); Bun/Creatinine Ratio 9.8 (12.0-20.0); CO2, Blood 22 mmol/L (21-32); Calcium, Blood 8.3 mg/dL (8.5-10.1); Chloride, Blood 108 mmol/L (98-108); Creatinine, Blood 0.51 mg/dL (0.40-1.00); Globulin, Blood 3.7 g/dL (2.2-4.0); Glomerular Filtration Rate >60 (60-); Glucose, Blood 86 mg/dL (70-99); Potassium, Blood 4.4 mmol/L (3.5-5.5); Sodium, Blood 137 mmol/L (136-145); Total Protein, Blood 5.9 g/dL (6.4-8.2)
--- NOTE | 2020-08-09 06:22 | NUR ---
PT IS A/O, JAUNDICED. POSSIBLE D/C TODAY, MEDICATED THIS SHIFT FOR ANXIETY AND FOOT PAIN. CHEST CT PERFORMED YESTERDAY.
[2020-08-09] MEDS ORDERED: VISBIOME 112.51 EACH PO (14:00)
[2020-08-09] MEDS ORDERED: B-1100 M1 PO (14:01)
[2020-08-09] MEDS ORDERED: CITA20 (14:02)
[2020-08-09] MEDS ORDERED: Ativan1 MG (14:16)
[2020-08-09] MEDS ORDERED: PRENATAL TABLE1 EAC2 PO (14:25)
--- NOTE | 2020-08-09 15:45 | NUR ---
DISCHARGE SUMMARY PT AxOx4. PLEASANT AND COOPERATIVE WITH CARE. PT C/O ADRIEN SIDE PAIN D/T FLUID RETENTION AND ADRIEN FEET TENDERNESS TODAY. MEDICATED PER EMAR FOR ABD PAIN. LASIX HELD D/T LOW BP TODAY. PT IS DISCHARGING TO HOME TODAY. DISCHARGE INSTRUCTIONS DISCUSSED WITH PATIENT, INCLUDING DC MEDICATIONS, AND FOLLOW UP APPOINTMENTS. PT VERBALIZES UNDERSTANDING. DENIES ANY FURTHER QUESTIONS AT THIS TIME. VITALS REVIEWED. PT SAFELY ESCORTED OUT VIA WC WITH DIRECTOR WRITING AND SIGNIFICANT OTHER.
--- NOTE | 2020-08-09 18:52 | NUR ---
ADMIT: 07/29/20 DISCHARGE: 08/09/20 DX: Acute alcoholic hepatitis CC: cpeabody ADMIT:06/11/20 DISCHARGE: DX:Y, ACUTE LIVER FAILURE CC: CPEABODY ADMIT: 04/18/20 DISCHARGE: 04/21/20 DX: COVID, KETOACIDOSIS DUE TO PERSISTENT VOMITING MARTINA CALL: CALL ANDRES AT HOME FOR MARTINA- 1 week follow up RESIDENCE: home CAREGIVER: ODALIS ARRINGTON, SPOUSE / PARTNER, DX: alcohol-induced acute pancreatitis, alcoholism, anxiety, see list DME: FRONT WHEEL WALKER, [employer], WHEELCHAIR. CCM: HOME HEALTH: [facility]- 2020 ([facility] FOR NURSE, PT, OT , BATHAID, SOCIALSERVICES, S/W CHARMAINE, CONFIRMED REFERRAL.) Resumed HH with Caro 08/09/20, s/w Charmaine at [facility]. SUMMARY: Admit: 07/29/20 Discharge 08/09/20 home with pauly hauser. He will pick her up and take her to pharmacy. Discussed care coordination, resumed home health with Caro. Dr Lomax was hoping Andres would reach out to AA meetings to see if zoom groups are available. She was visibly shaken when I suggested this. She says she is not ready for meeting new people, she will consider in the future. Started on anti-depression medication. She was also requesting a anxiety medication that she used here in the hospital that worked well. I contacted Dr Tracy about this request. Did not identify any additional needs, expecting our martina call to schedule follow up appointment on Sunday or Sunday. eleni
== END 2020-08-09 15:44 | disposition home health service (06) | DRG 871 ==
LOC: ER 18:59 → MEDS 07-30 02:22 → ENPENDDIS 08-09 12:22 → MEDS 08-09 15:44
PROVIDERS: Emergency Medicine; Family Medicine; Hospitalist; Internal Medicine; Physician Assistant; ADMIT Internal Medicine
PROC: 0W9G3ZZ Drainage of Peritoneal Cavity, Percutaneous Approach (ICD-10-PCS; principal; 2020-07-30)
PROC: 30243N1 Transfusion of Nonautologous Red Blood Cells into Central Vein, Percutaneous Approach (ICD-10-PCS; 2020-07-31)
PROC: 0W9G3ZZ Drainage of Peritoneal Cavity, Percutaneous Approach (ICD-10-PCS; 2020-08-02)
PROC: 0W9G3ZZ Drainage of Peritoneal Cavity, Percutaneous Approach (ICD-10-PCS; 2020-08-06)
DX: A41.9 Sepsis, unspecified organism (principal); J69.0 Pneumonitis due to inhalation of food and vomit; I50.33 Acute on chronic diastolic (congestive) heart failure; E87.2 Acidosis; E87.1 Hypo-osmolality and hyponatremia; N39.0 Urinary tract infection, site not specified; N17.9 Acute kidney failure, unspecified; D62 Acute posthemorrhagic anemia; K76.6 Portal hypertension; F41.9 Anxiety disorder, unspecified; K70.11 Alcoholic hepatitis with ascites; Z87.891 Personal history of nicotine dependence; R65.20 Severe sepsis without septic shock; E87.6 Hypokalemia; D69.6 Thrombocytopenia, unspecified; R41.0 Disorientation, unspecified; I95.9 Hypotension, unspecified; K72.90 Hepatic failure, unspecified without coma; F41.8 Other specified anxiety disorders; N76.0 Acute vaginitis; F10.21 Alcohol dependence, in remission; Z86.16 Personal history of COVID-19
CPT/HCPCS: 36415; 36430; 49083; 71045; 71046; 71260; 74177; 80053; 81001; 81025; 82040; 82042; 82140; 82272; 82945; 83605; 83615; 83690; 83735; 83880; 83986; 84100; 84157; 84484; 85014; 85018; 85025; 85027; 85610; 85730; 86850; 86900; 86901; 86923; 87040; 87070; 87086; 87205; 87493; 89051; 93005; 93010; 93306; 96365; 96366; 96367; 96375; 97110; 97116; 97161; 97530; 99285-25; A9270; G0480; J0696; J1885; J1940; J1956; J2270; J2405; J2543; J2550; J3480; J7030; J7050; J7120; J7131; P9016; P9041; P9046; P9059; Q9967

== ENCOUNTER 2020-08-12 15:58 | Emergency (ER) | payer OTHER ==
[~2020-08-12] VITALS: Ht 167.6 cm; Wt 63.5 kg
[~2020-08-12 15:58] MED LIST changes: +Ativan1 MG; +CITA20; +PRENATAL TABLE1 EAC2 PO; +VISBIOME 112.51 EACH PO
[2020-08-12 17:10] LABS: BASOPHILS ABSOLUTE AUTO 0.14 K/mm3 (0.00-0.23); BASOPHILS PERCENT AUTO 1 % (0-2); EOSINOPHILS ABSOLUTE AUTO 0.06 K/mm3 (0.00-0.68); EOSINOPHILS PERCENT AUTO 1 % (0-6); Hematocrit 32.8 % (33.0-51.0); Hemoglobin 11.3 g/dL (11.5-16.0); IMMATURE GRAN ABSOLUTE AUTO 0.03 K/mm3 (0.00-0.10); IMMATURE GRAN PERCENT AUTO 0 % (0-1); LYMPHOCYTES ABSOLUTE AUTO 1.87 K/mm3 (0.84-5.20); LYMPHOCYTES PERCENT AUTO 16 % (21-46); MONOCYTES ABSOLUTE AUTO 0.65 K/mm3 (0.16-1.47); MONOCYTES PERCENT AUTO 6 % (4-13); Mean Corpuscular HGB 30.2 pg (26.0-34.0); Mean Corpuscular HGB Conc 34.5 g/dL (31.5-36.5); Mean Corpuscular Volume 88 fL (80-100); NEUTROPHILS ABSOLUTE AUTO 8.93 K/mm3 (1.96-9.15); NEUTROPHILS PERCENT AUTO 76 % (41-73); Platelet Count 213 K/mm3 (150-400); RDW Coefficient Variation 18.2 % (11.7-14.2); RDW Standard Deviation 57.7 fL (35.1-46.3); Red Blood Cell Count 3.74 M/mm3 (3.80-5.20); White Blood Cell Count 11.68 K/mm3 (4.00-11.30)
[2020-08-12 17:39] LABS: Alanine Aminotransfer (ALT/SGP 28 U/L (12-78); Albumin, Blood 2.7 g/dL (3.4-5.0); Albumin/Globulin Ratio 0.6 (0.8-1.8); Alk Phos 105 U/L (50-136); Anion Gap 9 mmol/L (6-16); Aspartate Aminotrans (AST/SGOT 89 U/L (12-37); Bilirubin, Total 9.8 mg/dL (0.1-1.0); Blood Urea Nitrogen 4 mg/dL (8-24); Bun/Creatinine Ratio 8.1 (12.0-20.0); CO2, Blood 24 mmol/L (21-32); Chloride, Blood 105 mmol/L (98-108); Globulin, Blood 4.9 g/dL (2.2-4.0); Glomerular Filtration Rate >60 (60-); Glucose, Blood 87 mg/dL (70-99); Potassium, Blood 3.5 mmol/L (3.5-5.5); Sodium, Blood 138 mmol/L (136-145); Total Protein, Blood 7.6 g/dL (6.4-8.2)
[2020-08-12] MEDS ORDERED: CELEXA10 MG PO (17:53)
[2020-08-12 19:24] LABS: Prothrombin Time Results 27.3 Sec (9.7-11.5)
[2020-08-12 19:31] LABS: International Normalized Ratio 2.7
[2020-08-12 20:20] LABS: Automated BF WBC Count 0.065 K/mm3 (0-999); Body Fluid WBC Count 65 /mm3 (0-999)
[2020-08-12 20:39] LABS: Albumin, Body Fluid 0.7 g/dL; Glucose, Body Fluid 89 mg/dL; Protein, Body Fluid 1.7 g/dL
[2020-08-12 20:45] LABS: RBC Count, Body Fluid 37 /mm3 (0-0)
[2020-08-12 21:17] LABS: Total Cell Count, Body Fluid 100
[2020-08-12 21:18] LABS: Appearance, Body Fluid Clear (Clear); Color, Body Fluid Yellow (None-Yellow)
== END 2020-08-12 21:39 | disposition home or self-care (01) ==
LOC: ER 15:58
PROVIDERS: Emergency Medicine; Physician Assistant
DX: K70.31 Alcoholic cirrhosis of liver with ascites (principal); Z79.899 Other long term (current) drug therapy
CPT/HCPCS: 36415; 49083; 80053; 82042; 82140; 82945; 83690; 84157; 85025; 85610; 85730; 87070; 87205; 89051; 99284-25

== ENCOUNTER 2020-08-17 07:14 | Day surgery (SDC) | payer OTHER ==
[~2020-08-17 07:14] MED LIST changes: +CELEXA10 MG PO
[2020-08-17 10:18] LABS: Automated BF WBC Count 0.042 K/mm3 (0-999); Body Fluid WBC Count 42 /mm3 (0-999)
[2020-08-17 10:30] LABS: RBC Count, Body Fluid 57 /mm3 (0-0)
[2020-08-17 11:05] LABS: Appearance, Body Fluid Clear (Clear); Color, Body Fluid Yellow (None-Yellow); Total Cell Count, Body Fluid 100
== END 2020-08-17 23:30 | disposition home or self-care (01) ==
LOC: US 07:14
PROVIDERS: Internal Medicine
DX: K70.31 Alcoholic cirrhosis of liver with ascites (principal)
CPT/HCPCS: 49083; 87070; 87205; 89051

== ENCOUNTER → 2021-02-10 | Outpatient (CLI) | payer OTHER | LOC: LAB SHORT 13:33 → LAB 13:33 | DX: L98.9 Disorder of the skin and subcutaneous tissue, unspecified (principal); L82.1 Other seborrheic keratosis; Z88.8 Allergy status to other drugs, medicaments and biological substances | CPT/HCPCS: 88305 ==

== ENCOUNTER 2021-08-18 12:47 | Day surgery (SDC) | payer OTHER ==
[~2021-08-18] VITALS: Ht 167.6 cm; Wt 68.4 kg
[~2021-08-18 12:47] MED LIST changes: +IBUP800 PO
--- NOTE | 2021-08-18 15:32 | NUR ---
08/18/21 1532 Howie Milan PATIENT DETERMINED TO BE ASA APPROPRIATE FOR PROPOFOL SEDATION PRIOR TO START OF PROCEDURE BY DR. SEVILLA Bite Block Placed Returned from ENDO 1 3-LEAD EKG REVIEWED WITH PHYSICIAN PRIOR TO START OF PROCEDURE.History, Chart, Medications and Allergies reviewed before start of procedure.MONITOR INTACT WITH CONTINUOUS PULSE OXIMETRY AND INTERMITTENT BP.O2 VIA N/C INTACT THROUGHOUT SEDATION/PROCEDURE.
--- NOTE | 2021-08-18 16:10 | NUR ---
Ambulatory in Day Surgery Discharge instructions reviewed with patient. Patient verbalizes understanding. Copy given to patient to take home. Patient States Post-Procedure ride home has been arranged. Discharged via wheelchair to private car for ride home.
== END 2021-08-18 16:15 | disposition home or self-care (01) ==
LOC: ORSCMMR 12:47 → ORD 14:00 → ORSCMMR 14:00
PROVIDERS: Student in an Organized Health Care Education/Training Program
PROC: 0DJ08ZZ Inspection of Upper Intestinal Tract, Via Natural or Artificial Opening Endoscopic (ICD-10-PCS; principal; 2021-08-18 14:00)
DX: K74.60 Unspecified cirrhosis of liver (principal); I85.00 Esophageal varices without bleeding; Z79.899 Other long term (current) drug therapy
CPT/HCPCS: J2250; J2704; J7120

== ENCOUNTER → 2022-07-20 | Outpatient (CLI) | payer OTHER ==
[2022-07-24 16:09] LABS: HPV 16 Negative (Negative); HPV 18 Negative (Negative); HPV OTHER HR TYPES Negative (Negative)
== END | disposition home or self-care (01) ==
LOC: LAB SHORT 15:32 → LAB 15:32
PROVIDERS: Obstetrics & Gynecology
DX: Z01.419 Encounter for gynecological examination (general) (routine) without abnormal findings (principal)
CPT/HCPCS: 87624; G0145

== ENCOUNTER → 2023-04-02 | Outpatient (CLI) | payer MEDICARE, OTHER ==
[~2023-04-02] MED LIST changes: +BUPR100
== END ==
LOC: LAB 07:57 → LAB SHORT 07:57
DX: D26.0 Other benign neoplasm of cervix uteri (principal)
CPT/HCPCS: 88305

== ENCOUNTER 2023-07-05 11:17 | Day surgery (SDC) | payer MEDICARE, OTHER ==
[2023-07-05] VITALS (11 sets, daily range): BP systolic 102–137; BP diastolic 64–96
[~2023-07-05] VITALS: Ht 167.6 cm; Wt 75.7 kg
[~2023-07-05 11:17] MED LIST changes: +Aldactone50 MG PO; +CLIN1TS TOP; +CONSTULOSE10 GM/155 PO; +GABA300 PO; +Mirapex0.125 MG PO; +POTA10T PO; +PREVIDENT; +RIZATRIPTAN1014 PO; +TOPI50 PO; +TRAZ50 PO; +[UNRECOGNIZED DRUG - OTHER] PO
[2023-07-05] MEDS ORDERED: Lactated Ringer's 1,000 ML IV SCH ×2 (11:45→18:05)
[2023-07-05] MEDS ORDERED: CeFAZolin Sodium 2,000 MG in NS 50 ML IV SCH (11:45)
[2023-07-05] MEDS ORDERED: LORA2 PO (11:54)
[2023-07-05] MEDS ORDERED: DULO60 PO (11:54)
[2023-07-05] MEDS ORDERED: TRAM50 PO (11:54)
--- NOTE | 2023-07-05 12:56 | NUR ---
Ambulatory in Day Surgery. History, Chart, Medications and Allergies reviewed before start of procedure. Lungs clear T/O to Auscultation. Patient confirms NPO status and agrees with scheduled surgery. Pre-Op teaching done. Pt verbalizes understanding. PT BELONGINGS PLACED UNDERNEATH GURNEY FOR SAFEKEEPING.
[2023-07-05] MEDS ORDERED: Bupivacaine 0.5% HCl 5 MG/ML 30MLVIAL ONE (13:35)
[2023-07-05] MEDS ORDERED: FentaNYL Citrate 50 MCG/ML 2 ML Injection ONE (13:49)
[2023-07-05] MEDS ORDERED: Ondansetron HCl 2 MG / ML 2ML Vial ONE (13:49)
[2023-07-05] MEDS ORDERED: Rocuronium Bromide 10 MG/ML 5ML Injection IV ONE (13:49)
[2023-07-05] MEDS ORDERED: Ketorolac Tromethamine 30mg Vial ONE (13:49)
[2023-07-05] MEDS ORDERED: Dexamethasone Sod Phos 10 MG/ML 1ML VIAL ONE (13:49)
[2023-07-05] MEDS ORDERED: propofoL 20 ML IV ONE (13:49)
[2023-07-05] MEDS ORDERED: Ropivacaine 0.5% HCl/Pf 5 MG/ML 20ML VIAL ONE (13:54)
--- NOTE | 2023-07-05 15:45 | NUR ---
07/05/[address] DID A BLOCK ON THE ABD PRIOR TO START OF PROCEDURE. SEE ANEST RECORD.
[2023-07-05] MEDS ORDERED: HYDROmorphone HCl/Pf 1MG SYR ONE (16:03)
[2023-07-05] MEDS ORDERED: Naloxone HCl 0.4MG / ML 1ML Vial IV PRN (18:00)
[2023-07-05] MEDS ORDERED: Ondansetron HCl 2 MG / ML 2ML Vial IV PRN (18:00)
[2023-07-05] MEDS ORDERED: OxyCODONE HCL 5 MG TAB PO PRN (18:00)
[2023-07-05] MEDS ORDERED: Simethicone 80 MG Chew PO PRN (18:00)
[2023-07-05] MEDS ORDERED: Metoclopramide HCl 5MG / ML 2ML Vial IV PRN (18:00)
--- NOTE | 2023-07-05 18:03 | NUR ---
ARRIVAL TO SURGICAL UNIT ALERT & PLEASANT. SLID TO HOSPITAL BED FROM [facility]. ASSESSMENT CHARTED. DENIES N/V SO CLEAR LQ's GIVEN.
[2023-07-05] MEDS ORDERED: HYDROmorphone HCl/Pf 1MG SYR IV PRN (18:05)
[2023-07-05] MEDS ORDERED: FLU VACC QS2023-24(6MOS UP)/PF 60 MCG/0.5 ML SYRINGE IM SCH (18:05)
[2023-07-05] MEDS ORDERED: DiphenhydrAMINE HCL 25 MG Cap PO PRN (18:10)
[2023-07-05] MEDS ORDERED: TOPI50 PO (18:23)
[2023-07-06] MEDS ORDERED: Ketorolac Tromethamine 30mg Vial IV SCH
[2023-07-06] MEDS ORDERED: Acetaminophen 500 MG Tab PO SCH
[2023-07-06] MEDS ORDERED: Ibuprofen 400 MG Tab PO SCH
[2023-07-06 00:14] VITALS: BP 101/62
[2023-07-06 04:05] LABS: BASOPHILS ABSOLUTE AUTO 0.01 K/mm3 (0.00-0.23); BASOPHILS PERCENT AUTO 0 % (0-2); EOSINOPHILS PERCENT AUTO 0 % (0-6); Hematocrit 33.8 % (33.0-51.0); Hemoglobin 11.1 g/dL (11.5-16.0); IMMATURE GRAN ABSOLUTE AUTO 0.06 K/mm3 (0.00-0.10); IMMATURE GRAN PERCENT AUTO 1 % (0-1); LYMPHOCYTES ABSOLUTE AUTO 0.76 K/mm3 (0.84-5.20); LYMPHOCYTES PERCENT AUTO 7 % (21-46); MONOCYTES ABSOLUTE AUTO 0.44 K/mm3 (0.16-1.47); MONOCYTES PERCENT AUTO 4 % (4-13); Mean Corpuscular HGB 28.6 pg (26.0-34.0); Mean Corpuscular HGB Conc 32.8 g/dL (31.5-36.5); Mean Corpuscular Volume 87 fL (80-100); Mean Platelet Volume 10.1 fL (9.1-12.4); NEUTROPHILS ABSOLUTE AUTO 10.03 K/mm3 (1.96-9.15); NEUTROPHILS PERCENT AUTO 89 % (41-73); Platelet Count 230 K/mm3 (150-400); RDW Coefficient Variation 13.3 % (11.7-14.2); RDW Standard Deviation 42.3 fL (35.1-46.3); Red Blood Cell Count 3.88 M/mm3 (3.80-5.20)
[2023-07-06] MEDS ORDERED: Enoxaparin 40 MG/0.4 ML SYR SC SCH (07:00)
[2023-07-06 07:30] VITALS: BP 96/57
--- NOTE | 2023-07-06 07:36 | NUR ---
POD 1 S/P LAP HYSTER. PT VSS T/O NIGHT. INCISIONS CDI, ABD SOFT TO PALP. PT HAVING MINIMAL VAGINAL BLEEDING, CHANGED ADARSH PAD X2 R/T LIGHT SPOTTING. PT ROSA M REG PO, DENIED N/V, REP NO FLATUS YET. PT VOIDING URINE W/O DIFFICULTY, BLADDER SCAN <10 ML. PT AMB W/SBA, ROSA M WELL. PLAN TO D/C HOME TODAY.
[2023-07-06] MEDS ORDERED: Polyethylene Glycol 3350 119 GM PO SCH (09:00)
[2023-07-06] MEDS ORDERED: Polyethylene Glycol 3350 17 gm PO SCH (09:00)
--- NOTE | 2023-07-06 13:59 | NUR ---
DISCHARGE: DR VILLEDA IN TO SEE PT AT ABOUT 1300. DC PACKET PRINTED AND PT EDUCATED. PT LEFT UNIT VIA WHEELCHAIR WITH INDRA ARSHAD AT 1350
== END 2023-07-06 14:00 | disposition home or self-care (01) ==
LOC: ORSCMMR 11:17 → ORD 13:00 → ORSCMMR 13:00 → SURS 17:53 → ORSCMMR 07-06 14:00 → ORD 07-23 07:30
PROVIDERS: Obstetrics & Gynecology
PROC: 0U5F4ZZ Destruction of Cul-de-sac, Percutaneous Endoscopic Approach (ICD-10-PCS; principal; 2023-07-05 13:00)
PROC: 0UT7FZZ Resection of Bilateral Fallopian Tubes, Via Natural or Artificial Opening With Percutaneous Endoscopic Assistance (ICD-10-PCS; principal; 2023-07-05 13:00)
PROC: 0U524ZZ Destruction of Bilateral Ovaries, Percutaneous Endoscopic Approach (ICD-10-PCS; principal; 2023-07-05 13:00)
PROC: 0UT9FZZ Resection of Uterus, Via Natural or Artificial Opening With Percutaneous Endoscopic Assistance (ICD-10-PCS; principal; 2023-07-05 13:00)
DX: N93.8 Other specified abnormal uterine and vaginal bleeding (principal); N80.8 Other endometriosis; N84.0 Polyp of corpus uteri; N73.6 Female pelvic peritoneal adhesions (postinfective); N80.03 Adenomyosis of the uterus; N83.8 Other noninflammatory disorders of ovary, fallopian tube and broad ligament; K21.9 Gastro-esophageal reflux disease without esophagitis; F32.A Depression, unspecified; Z79.899 Other long term (current) drug therapy; K74.60 Unspecified cirrhosis of liver
CPT/HCPCS: 36415; 85025; 86850; 86900; 86901; 88307; A9270; J0690; J1100; J1170; J1650; J1885; J2405; J2704; J2795; J3010; J7120

== ENCOUNTER 2025-03-09 07:43 | Emergency (ER) | payer MEDICARE, OTHER ==
[~2025-03-09] VITALS: Ht 170.2 cm; Wt 81.7 kg
[~2025-03-09 07:43] MED LIST changes: +DULO60 PO; +LORA2 PO
[2025-03-09 08:32] LABS: BASOPHILS ABSOLUTE AUTO 0.10 K/mm3 (0.00-0.23); BASOPHILS PERCENT AUTO 1 % (0-2); EOSINOPHILS ABSOLUTE AUTO 0.13 K/mm3 (0.00-0.68); EOSINOPHILS PERCENT AUTO 2 % (0-6); Hematocrit 39.0 % (33.0-51.0); Hemoglobin 13.7 g/dL (11.5-16.0); IMMATURE GRAN ABSOLUTE AUTO 0.05 K/mm3 (0.00-0.10); IMMATURE GRAN PERCENT AUTO 1 % (0-1); LYMPHOCYTES ABSOLUTE AUTO 1.72 K/mm3 (0.84-5.20); LYMPHOCYTES PERCENT AUTO 22 % (21-46); MONOCYTES ABSOLUTE AUTO 0.48 K/mm3 (0.16-1.47); MONOCYTES PERCENT AUTO 6 % (4-13); Mean Corpuscular HGB Conc 35.1 g/dL (31.5-36.5); Mean Corpuscular Volume 82 fL (80-100); NEUTROPHILS ABSOLUTE AUTO 5.20 K/mm3 (1.96-9.15); NEUTROPHILS PERCENT AUTO 68 % (41-73); NRBC ABSOLUTE 0.00 K/mm3 (0.00-0.02); NRBC Auto 0.0 /100 WBC (0.0-0.2); Platelet Count 270 K/mm3 (150-400); RDW Coefficient Variation 12.7 % (11.7-14.2); RDW Standard Deviation 38.3 fL (35.1-46.3)
[2025-03-09 08:54] LABS: Alanine Aminotransfer (ALT/SGP 23.0 U/L (12-78); Albumin, Blood 3.9 g/dL (3.4-5.0); Albumin/Globulin Ratio 1.1 (0.8-1.8); Anion Gap 12.0 mmol/L (3-11); Aspartate Aminotrans (AST/SGOT 12.0 U/L (12-37); Bilirubin, Total 0.4 mg/dL (0.1-1.0); Blood Urea Nitrogen 14.0 mg/dL (8-24); CO2, Blood 20.0 mmol/L (21-32); Calcium, Blood 8.5 mg/dL (8.5-10.1); Chloride, Blood 101.0 mmol/L (98-108); Creatinine, Blood 0.73 mg/dL (0.40-1.00); Globulin, Blood 3.4 g/dL (2.2-4.0); Glucose, Blood 411.0 mg/dL (70-99); Potassium, Blood 4.0 mmol/L (3.5-5.5); Sodium, Blood 129.0 mmol/L (136-145); Total Protein, Blood 7.3 g/dL (6.4-8.2)
[2025-03-09] MEDS ORDERED: FURO20 PO (09:05)
[2025-03-09] MEDS ORDERED: REXULTI1 MG PO (09:08)
[2025-03-09] MEDS ORDERED: BUPROPION HCL150 MG PO (09:08)
[2025-03-09] MEDS ORDERED: Vitamin D1000 UNI1 PO (09:08)
[2025-03-09] MEDS ORDERED: CLONAZEPAM0.5 MG PO (09:09)
[2025-03-09 10:00] VITALS: BP 113/77
[2025-03-09 10:16] LABS: Prothrombin Time Results 11.4 Sec (9.7-11.5)
[2025-03-09] MEDS ORDERED: NS 1,000 ML IV SCH (11:35)
[2025-03-09] MEDS ORDERED: Ondansetron HCl 2 MG / ML 2ML Vial IV ONE (11:35)
[2025-03-09] MEDS ORDERED: HYDROmorphone HCl/Pf 1MG SYR IV ONE (11:35)
[2025-03-09] MEDS ORDERED: Percocet 5-3251 EACH PO (13:42)
[2025-03-09] MEDS ORDERED: ONDA4ODT MM (13:42)
[2025-03-12] MEDS ORDERED: METF500 PO (21:46)
[2025-03-12] MEDS ORDERED: GABA300 (23:59)
[2025-03-13] MEDS ORDERED: GABA300 PO (00:01)
[2025-03-13] MEDS ORDERED: TOPI50 (00:09)
[2025-03-13] MEDS ORDERED: [UNRECOGNIZED DRUG - OTHER] PO (00:11)
[2025-03-13] MEDS ORDERED: BUPROPION XL150 M1 PO (11:55)
[2025-03-14] MEDS ORDERED: LANTUS SOL100 UNIT/1 SC (11:29)
[2025-03-14] MEDS ORDERED: INSULIN LI100 UNIT/8 SC (11:29)
== END 2025-03-09 13:53 | disposition home or self-care (01) ==
LOC: ER 07:43
PROVIDERS: Physician Assistant; Student in an Organized Health Care Education/Training Program
DX: K80.70 Calculus of gallbladder and bile duct without cholecystitis without obstruction (principal); Z88.8 Allergy status to other drugs, medicaments and biological substances; Z79.899 Other long term (current) drug therapy; Z87.891 Personal history of nicotine dependence
CPT/HCPCS: 71046; 76705; 80053; 83690; 83880; 84484; 85025; 85610; 93005; 93010; 96361; 96374; 96375; 99285-25; J1171; J2405; J7030

== ENCOUNTER → 2025-03-10 | Outpatient (CLI) | payer MEDICARE, OTHER ==
[~2025-03-10] MED LIST changes: +BUPROPION HCL150 MG PO; +CLONAZEPAM0.5 MG PO; +FURO20 PO; +GABA300; +METF500 PO; +Percocet 5-3251 EACH PO; +REXULTI1 MG PO; +TOPI50; +Vitamin D1000 UNI1 PO; +[UNRECOGNIZED DRUG - OTHER]
[2025-03-10 17:26] LABS: Alanine Aminotransfer (ALT/SGP 23.0 U/L (12-78); Albumin, Blood 4.1 g/dL (3.4-5.0); Albumin/Globulin Ratio 1.0 (0.8-1.8); Anion Gap 17.0 mmol/L (3-11); Aspartate Aminotrans (AST/SGOT 16.0 U/L (12-37); Bilirubin, Total 0.5 mg/dL (0.1-1.0); Blood Urea Nitrogen 13.0 mg/dL (8-24); CO2, Blood 25.0 mmol/L (21-32); Calcium, Blood 9.7 mg/dL (8.5-10.1); Chloride, Blood 92.0 mmol/L (98-108); Creatinine, Blood 1.03 mg/dL (0.40-1.00); Globulin, Blood 4.0 g/dL (2.2-4.0); Glucose, Blood 475.0 mg/dL (70-99); Potassium, Blood 3.8 mmol/L (3.5-5.5); Sodium, Blood 130.0 mmol/L (136-145); Total Protein, Blood 8.1 g/dL (6.4-8.2)
== END ==
LOC: LAB 17:13 → LAB SHORT 17:13
PROVIDERS: Family Medicine
DX: R06.09 Other forms of dyspnea (principal)
CPT/HCPCS: 80053

== ENCOUNTER 2025-03-12 15:34 | Emergency (ER) | payer MEDICARE, OTHER ==
[~2025-03-12] VITALS: Ht 167.6 cm; Wt 82.5 kg
[~2025-03-12 15:34] MED LIST changes: -BUPROPION XL150 M1 PO; -GABA300; -INSULIN LI100 UNIT/8 SC; -LANTUS SOL100 UNIT/1 SC; -METF500 PO; -TOPI50; -[UNRECOGNIZED DRUG - OTHER] PO
[2025-03-12] MEDS ORDERED: NS 1,000 ML IV SCH (15:45)
[2025-03-12 16:04] LABS: BASOPHILS ABSOLUTE AUTO 0.11 K/mm3 (0.00-0.23); BASOPHILS PERCENT AUTO 1 % (0-2); EOSINOPHILS ABSOLUTE AUTO 0.07 K/mm3 (0.00-0.68); EOSINOPHILS PERCENT AUTO 1 % (0-6); Hematocrit 41.5 % (33.0-51.0); Hemoglobin 14.5 g/dL (11.5-16.0); IMMATURE GRAN ABSOLUTE AUTO 0.04 K/mm3 (0.00-0.10); IMMATURE GRAN PERCENT AUTO 0 % (0-1); LYMPHOCYTES ABSOLUTE AUTO 1.73 K/mm3 (0.84-5.20); LYMPHOCYTES PERCENT AUTO 17 % (21-46); MONOCYTES ABSOLUTE AUTO 0.56 K/mm3 (0.16-1.47); MONOCYTES PERCENT AUTO 5 % (4-13); Mean Corpuscular HGB Conc 34.9 g/dL (31.5-36.5); Mean Corpuscular Volume 82 fL (80-100); NEUTROPHILS ABSOLUTE AUTO 7.90 K/mm3 (1.96-9.15); NEUTROPHILS PERCENT AUTO 76 % (41-73); NRBC ABSOLUTE 0.00 K/mm3 (0.00-0.02); NRBC Auto 0.0 /100 WBC (0.0-0.2); Platelet Count 318 K/mm3 (150-400); RDW Coefficient Variation 12.8 % (11.7-14.2); RDW Standard Deviation 38.2 fL (35.1-46.3)
[2025-03-12 16:37] LABS: Magnesium, Blood 2.1 mg/dL (1.6-2.4)
[2025-03-12 16:42] LABS: Alanine Aminotransfer (ALT/SGP 25.0 U/L (12-78); Albumin, Blood 4.0 g/dL (3.4-5.0); Albumin/Globulin Ratio 1.0 (0.8-1.8); Anion Gap 14.0 mmol/L (3-11); Aspartate Aminotrans (AST/SGOT 13.0 U/L (12-37); Bilirubin, Total 0.5 mg/dL (0.1-1.0); Blood Urea Nitrogen 21.0 mg/dL (8-24); CO2, Blood 20.0 mmol/L (21-32); Calcium, Blood 9.1 mg/dL (8.5-10.1); Chloride, Blood 95.0 mmol/L (98-108); Creatinine, Blood 0.77 mg/dL (0.40-1.00); Globulin, Blood 3.9 g/dL (2.2-4.0); Glucose, Blood 619.0 mg/dL (70-99); Potassium, Blood 3.8 mmol/L (3.5-5.5); Sodium, Blood 125.0 mmol/L (136-145); Total Protein, Blood 7.9 g/dL (6.4-8.2)
[2025-03-12] MEDS ORDERED: DiphenhydrAMINE HCl 50 MG/ML 1ML Vial IV ONE (18:10)
[2025-03-12] MEDS ORDERED: Insulin Regular 100 Unit/ML 1ML Dose SC ONE (18:25)
[2025-03-12 19:00] VITALS: BP 115/75
[2025-03-12] MEDS ORDERED: METF500 PO ×2 (21:46)
[2025-03-12] MEDS ORDERED: GABA300 ×2 (23:59)
[2025-03-13] MEDS ORDERED: GABA300 PO ×2 (00:01)
[2025-03-13] MEDS ORDERED: TOPI50 ×2 (00:09)
[2025-03-13] MEDS ORDERED: [UNRECOGNIZED DRUG - OTHER] PO ×2 (00:11)
[2025-03-13] MEDS ORDERED: BUPROPION XL150 M1 PO ×2 (11:55)
== END 2025-03-12 19:21 | disposition home or self-care (01) ==
LOC: ER 15:34
PROVIDERS: Emergency Medicine
DX: K80.20 Calculus of gallbladder without cholecystitis without obstruction (principal); E11.65 Type 2 diabetes mellitus with hyperglycemia; Z87.891 Personal history of nicotine dependence
CPT/HCPCS: 76705; 80053; 82947; 83690; 83735; 85025; 96360; 99284-25; J1815; J7030

== ENCOUNTER 2025-03-12 20:47 | Observation (INO) | payer MEDICARE ==
[~2025-03-12] VITALS: Ht 167.6 cm; Wt 84.1 kg
[2025-03-12 21:15] LABS: pH Blood Venous 7.34 (7.34-7.37)
[2025-03-12 21:41] LABS: Anion Gap 12 mmol/L (3-11); Blood Urea Nitrogen 18 mg/dL (8-24); CO2, Blood 21 mmol/L (21-32); Calcium, Blood 9.0 mg/dL (8.5-10.1); Chloride, Blood 102 mmol/L (98-108); Creatinine, Blood 0.67 mg/dL (0.40-1.00); Glucose, Blood 362 mg/dL (70-99); Potassium, Blood 3.7 mmol/L (3.5-5.5); Sodium, Blood 131 mmol/L (136-145)
[2025-03-12] MEDS ORDERED: METF500 PO ×2 (21:46)
[2025-03-12] MEDS ORDERED: Ondansetron HCl 2 MG / ML 2ML Vial IV PRN (22:20)
[2025-03-12] MEDS ORDERED: FLU VACC TS2025-26(6MOS UP)/PF 45 MCG/0.5 ML SYRINGE IM SCH (22:20)
[2025-03-12] MEDS ORDERED: NS 1,000 ML IV ONE (22:25)
[2025-03-12 22:32] LABS: CHOL/HDL RATIO 4.2; Cholesterol 178 mg/dL (50-200); HDL Cholesterol 42 mg/dL (>39); LDL/HDL RATIO 1.9; Low Density Lipoprotein Chol 79 mg/dL (0-110); Triglycerides 285 mg/dL (30-160); Very Low Density Lipoprot Chol 57 mg/dL (6-32)
[2025-03-12 22:46] LABS: Source, Urine Clean Catch
[2025-03-12 22:54] LABS: Anion Gap 12.0 mmol/L (3-11); Blood Urea Nitrogen 18.0 mg/dL (8-24); CO2, Blood 21.0 mmol/L (21-32); Calcium, Blood 8.8 mg/dL (8.5-10.1); Chloride, Blood 102.0 mmol/L (98-108); Creatinine, Blood 0.63 mg/dL (0.40-1.00); Glucose, Blood 417.0 mg/dL (70-99); Potassium, Blood 3.8 mmol/L (3.5-5.5); Sodium, Blood 131.0 mmol/L (136-145)
[2025-03-12 23:00] LABS: Bilirubin, Urine Neg (Neg); Glucose Qualitative, Urine 4+ (Neg); Ketones, Urine 4+ (Neg); Leukocyte Esterase, Urine Neg (Neg); Protein, Urine Neg (Neg); Specific Gravity, Urine 1.015 (1.003-1.022); Urobilinogen, Urine NORM (Normal)
[2025-03-12] MEDS ORDERED: Enoxaparin 40 MG/0.4 ML SYR SC SCH (23:00)
[2025-03-12] MEDS ORDERED: MetFORMIN HCl 500 mg PO SCH (23:00)
[2025-03-12 23:18] LABS: Color, Urine Yellow (P-Yellow)
[2025-03-12 23:43] VITALS: BP 121/89
[2025-03-12] MEDS ORDERED: GABA300 ×2 (23:59)
[2025-03-13] MEDS ORDERED: GABA300 PO ×2 (00:01)
[2025-03-13] MEDS ORDERED: TOPI50 ×2 (00:09)
[2025-03-13] MEDS ORDERED: [UNRECOGNIZED DRUG - OTHER] PO ×2 (00:11)
[2025-03-13] MEDS ORDERED: FentaNYL Citrate 50 MCG/ML 2 ML Injection IV PRN (02:35)
[2025-03-13 03:16] VITALS: BP 105/74
[2025-03-13 04:54] LABS: BASOPHILS ABSOLUTE AUTO 0.06 K/mm3 (0.00-0.23); BASOPHILS PERCENT AUTO 1 % (0-2); EOSINOPHILS ABSOLUTE AUTO 0.15 K/mm3 (0.00-0.68); EOSINOPHILS PERCENT AUTO 2 % (0-6); Hematocrit 36.7 % (33.0-51.0); Hemoglobin 12.7 g/dL (11.5-16.0); IMMATURE GRAN ABSOLUTE AUTO 0.03 K/mm3 (0.00-0.10); IMMATURE GRAN PERCENT AUTO 0 % (0-1); LYMPHOCYTES ABSOLUTE AUTO 2.53 K/mm3 (0.84-5.20); LYMPHOCYTES PERCENT AUTO 33 % (21-46); MONOCYTES ABSOLUTE AUTO 0.50 K/mm3 (0.16-1.47); MONOCYTES PERCENT AUTO 7 % (4-13); Mean Corpuscular HGB Conc 34.6 g/dL (31.5-36.5); Mean Corpuscular Volume 85 fL (80-100); NEUTROPHILS ABSOLUTE AUTO 4.38 K/mm3 (1.96-9.15); NEUTROPHILS PERCENT AUTO 57 % (41-73); NRBC ABSOLUTE 0.00 K/mm3 (0.00-0.02); NRBC Auto 0.0 /100 WBC (0.0-0.2); Platelet Count 240 K/mm3 (150-400); RDW Coefficient Variation 13.0 % (11.7-14.2); RDW Standard Deviation 40.0 fL (35.1-46.3)
[2025-03-13 05:05] LABS: Prothrombin Time Results 11.4 Sec (9.7-11.5)
[2025-03-13 05:18] LABS: Alanine Aminotransfer (ALT/SGP 19.0 U/L (12-78); Albumin, Blood 3.3 g/dL (3.4-5.0); Albumin/Globulin Ratio 1.1 (0.8-1.8); Anion Gap 10.0 mmol/L (3-11); Aspartate Aminotrans (AST/SGOT 7.0 U/L (12-37); Bilirubin, Total 0.3 mg/dL (0.1-1.0); Blood Urea Nitrogen 15.0 mg/dL (8-24); CO2, Blood 22.0 mmol/L (21-32); Calcium, Blood 8.6 mg/dL (8.5-10.1); Chloride, Blood 105.0 mmol/L (98-108); Creatinine, Blood 0.68 mg/dL (0.40-1.00); Globulin, Blood 3.1 g/dL (2.2-4.0); Glucose, Blood 331.0 mg/dL (70-99); Potassium, Blood 3.5 mmol/L (3.5-5.5); Sodium, Blood 133.0 mmol/L (136-145); Total Protein, Blood 6.4 g/dL (6.4-8.2)
[2025-03-13] MEDS ORDERED: Rizatriptan Benzoate 10 MG / TAB SoluTab PO PRN (06:25)
[2025-03-13] MEDS ORDERED: LACTULOSE PO PRN (06:40)
[2025-03-13] MEDS ORDERED: Insulin Human Lispro 100 Units/ML 3ML Syringe SC SCH ×2 (07:30→16:30)
[2025-03-13 07:34] VITALS: BP 105/68
--- NOTE | 2025-03-13 07:35 | NUR ---
ADMISSION AND SHIFT SUMMARY ASSUMED CARE AT 2330, A/Ox4, VSS ON RA. NS RUNNING AT 100 ML/HR. PT REPORTS 6/10 CRAMPY, LOW ABDOMINAL PAIN AFTER 1ST DOSE OF METFORMIN, PRN FENTANYL EFFECTIVE. PT REPORTS DRY MOUTH; NO URINARY FREQUENCY, CONFUSION NOTED. SAFETY PRECAUTIONS IN PLACE.
[2025-03-13] MEDS ORDERED: Misc. Tablet PO SCH (09:00)
[2025-03-13] MEDS ORDERED: BUPROPION XL150 M1 PO ×2 (11:55)
[2025-03-13] MEDS ORDERED: Insulin Glargine-Yfgn 100 Unit/mL 3 ML SYR SC SCH (13:00)
[2025-03-13 15:22] VITALS: BP 103/73
--- NOTE | 2025-03-13 17:17 | NUR ---
SHIFT SUMMARY PATIENT IS A&OX4, USES CALL SYSTEM APPROPRIATELY AND IS ABLE TO MAKE NEEDS KNOWN. SHE IS ON ROOM AIR, WITH TELE NSR BBB 76BPM. SHE IS INDEPENDENT IN THE ROOM. NEW DX OF INEZ TODAY, GOING HOME ON LONG AND SHORT ACTING INSULIN TOMORROW MORNING. OVERNIGHT STAY FOR CONTINUED NURSING EDUCATION ON DIABETES/CBG/INSULIN. BED IS LOW, CALL LIGHT IS WITHIN REACH.
[2025-03-13] MEDS ORDERED: Insulin Glargine 100 Unit/ML 3 ML SYR SC ONE (18:05)
[2025-03-13 20:25] VITALS: BP 110/68
[2025-03-13] MEDS ORDERED: Potassium Chloride 10 Meq Tablet SA PO SCH (21:00)
[2025-03-13 23:58] VITALS: BP 107/67
[2025-03-14 04:16] VITALS: BP 105/69
[2025-03-14 07:29] VITALS: BP 95/68
--- NOTE | 2025-03-14 08:28 | NUR ---
SHIFT SUMMARY A/Ox4, VSS ON RA. PT REPORTS FEELING MORE CONFIDENT WITH SELF-ADMINISTRATION OF INSULIN. RUQ ABDOMINAL PAIN MANAGED WITH PRN FENTANYL. PT UP WITH SBA. NO BM THIS ADMISSION, PT REPORTS NORMAL PATTERN IS EVERY 3-4 DAYS.
[2025-03-14] MEDS ORDERED: Insulin Glargine 100 Unit/ML 3 ML SYR SC SCH (09:00)
[2025-03-14] MEDS ORDERED: Insulin Glargine-Yfgn 100 Unit/mL 3 ML SYR SC ONE (11:10)
[2025-03-14] MEDS ORDERED: INSULIN LI100 UNIT/8 SC ×2 (11:29)
[2025-03-14] MEDS ORDERED: LANTUS SOL100 UNIT/1 SC ×2 (11:29)
[2025-03-14 11:33] VITALS: BP 108/70
[2025-03-16 16:29] LABS: GLUTAMIC ACID DECARBOXYLASE AB <5.0 IU/mL (0.0-5.0)
== END 2025-03-14 12:20 | disposition home or self-care (01) ==
LOC: ER 20:47 → MEDS 20:48 → ERHOLD 20:48 → MEDS 23:36 → ENPENDDIS 03-13 13:31 → MEDS 03-14 12:20
PROVIDERS: Emergency Medicine; Internal Medicine; ADMIT Internal Medicine
DX: E10.10 Type 1 diabetes mellitus with ketoacidosis without coma (principal); K80.20 Calculus of gallbladder without cholecystitis without obstruction; F41.0 Panic disorder [episodic paroxysmal anxiety]; Z87.891 Personal history of nicotine dependence; Z86.16 Personal history of COVID-19; Z88.8 Allergy status to other drugs, medicaments and biological substances; Z95.818 Presence of other cardiac implants and grafts
CPT/HCPCS: 36415; 76705; 80048; 80053; 80061; 81003; 82010; 82803; 82947; 83036; 83690; 83735; 83880; 85025; 85610; 86341; 96360; 96372; 96374; 96376; 99284-25; 99285; A9270; G0378; J1650; J1815; J3010; J7030

== ENCOUNTER → 2025-03-12 | Outpatient (CLI) | payer MEDICARE, OTHER ==
[~2025-03-12] MED LIST changes: +BUPROPION XL150 M1 PO; +INSULIN LI100 UNIT/8 SC; +LANTUS SOL100 UNIT/1 SC; -[UNRECOGNIZED DRUG - OTHER]; +[UNRECOGNIZED DRUG - OTHER] PO
[2025-03-12 12:48] LABS: BASOPHILS ABSOLUTE AUTO 0.10 K/mm3 (0.00-0.23); BASOPHILS PERCENT AUTO 1 % (0-2); EOSINOPHILS ABSOLUTE AUTO 0.14 K/mm3 (0.00-0.68); EOSINOPHILS PERCENT AUTO 2 % (0-6); Hematocrit 42.4 % (33.0-51.0); Hemoglobin 14.6 g/dL (11.5-16.0); IMMATURE GRAN ABSOLUTE AUTO 0.04 K/mm3 (0.00-0.10); IMMATURE GRAN PERCENT AUTO 0 % (0-1); LYMPHOCYTES ABSOLUTE AUTO 1.53 K/mm3 (0.84-5.20); LYMPHOCYTES PERCENT AUTO 17 % (21-46); MONOCYTES ABSOLUTE AUTO 0.59 K/mm3 (0.16-1.47); MONOCYTES PERCENT AUTO 6 % (4-13); Mean Corpuscular HGB Conc 34.4 g/dL (31.5-36.5); Mean Corpuscular Volume 84 fL (80-100); NEUTROPHILS ABSOLUTE AUTO 6.75 K/mm3 (1.96-9.15); NEUTROPHILS PERCENT AUTO 74 % (41-73); NRBC ABSOLUTE 0.00 K/mm3 (0.00-0.02); NRBC Auto 0.0 /100 WBC (0.0-0.2); Platelet Count 298 K/mm3 (150-400); RDW Coefficient Variation 12.9 % (11.7-14.2); RDW Standard Deviation 38.6 fL (35.1-46.3)
[2025-03-12 12:57] LABS: Alanine Aminotransfer (ALT/SGP 22.0 U/L (12-78); Albumin, Blood 4.0 g/dL (3.4-5.0); Albumin/Globulin Ratio 1.0 (0.8-1.8); Anion Gap 19.0 mmol/L (3-11); Aspartate Aminotrans (AST/SGOT 15.0 U/L (12-37); Bilirubin, Total 0.5 mg/dL (0.1-1.0); Blood Urea Nitrogen 18.0 mg/dL (8-24); CO2, Blood 22.0 mmol/L (21-32); Calcium, Blood 9.3 mg/dL (8.5-10.1); Chloride, Blood 90.0 mmol/L (98-108); Creatinine, Blood 1.07 mg/dL (0.40-1.00); Globulin, Blood 4.0 g/dL (2.2-4.0); Potassium, Blood 3.9 mmol/L (3.5-5.5); Sodium, Blood 127.0 mmol/L (136-145); Total Protein, Blood 8.0 g/dL (6.4-8.2)
[2025-03-12 12:58] LABS: Glucose, Blood 561.0 mg/dL (70-99)
== END ==
LOC: LAB SHORT 12:42 → LAB 12:42
DX: R10.11 Right upper quadrant pain (principal)
CPT/HCPCS: 80053; 85025